=== PATIENT | female | born 1940 | race Caucasian/White ===

== ENCOUNTER 2018-08-25 19:46 | Emergency (ER) | payer OTHER ==
--- NOTE | 2018-08-25 21:07 | ER ---
Nurse's Notes [facility] Name: Keiko Rashid Age: 77 yrs Sex: Female : 1940 Arrival Date: 08/25/2018 Time: 19:49 Bed 18 Private MD: Dougie Dougherty F Diagnosis: Sprain of ankle Presentation: 08/25 20:04 Presenting complaint: Patient states: Pt reports around noon she was sitting down and ea stood up to walk, states "my foot had fallen asleep and when I stood up it just twisted all over the place". Transition of care: patient was not received from another setting of care. Onset of symptoms was August 25, 2018. Risk Assessment: Do you want to hurt yourself or someone else? Patient reports no desire to harm self or others. Initial Sepsis Screen: Does the patient meet any 2 criteria? No. Patient's initial sepsis screen is negative. Does the patient have a suspected source of infection? No. Patient's initial sepsis screen is negative. Care prior to arrival: None. 20:04 Method Of Arrival: Wheelchair ea 20:04 Acuity: GERRI 3 ea Triage Assessment: 20:12 General: Appears uncomfortable, Behavior is calm, cooperative. Pain: Complains of pain ea in left Achilles, left lateral malleolus, left medial malleolus and dorsum of left foot Pain currently is 9 out of 10 on a pain scale. Quality of pain is described as aching. Neuro: Level of Consciousness is awake, alert, obeys commands, Oriented to person, place, time. Respiratory: Airway is patent Respiratory effort is even, unlabored, Respiratory pattern is regular, symmetrical. Derm: Skin is pink, warm \\T\\ dry. Musculoskeletal: Circulation, motion, and sensation intact. Swelling present in left medial malleolus and dorsum of left foot. 20:13 Cardiovascular: Patient's skin is warm and dry. ea Historical: - Allergies: 20:10 No Known Allergies; cc3 - Home Meds: 20:10 Tresiba 56 units once a day [Active]; atorvastatin 10 mg oral tab 1 tab once daily cc3 [Active]; folic acid 1 mg Oral tab 1 tab once daily [Active]; ramipril 10 mg Oral cap 1 cap once daily [Active]; furosemide 20 mg Oral tab 1 tab once daily [Active]; - PMHx: 20:10 Diabetes - IDDM; Hypertension; cc3 - Immunization history:: Adult Immunizations up to date. - Social history:: Smoking status: Patient uses tobacco products. - Ebola Screening: : No symptoms or risks identified at this time. Screenin:09 Abuse screen: Denies threats or abuse. Nutritional screening: No deficits noted. ea Tuberculosis screening: No symptoms or risk factors identified. Fall Risk None identified. Assessment: 20:15 General: see triage assessment. cc3 21:30 Reassessment: Patient appears in no apparent distress at this time. Patient and/or cc3 family updated on plan of care and expected duration. Pain level reassessed. Patient is alert, oriented x 3, equal unlabored respirations, skin warm/dry/pink. Dr. Llanos discharged the patient home with prescription given, informed Dr. Llanos that the patient's blood pressure is on the high side and he's aware and he told the patient to take her antihypertensive medication. No IV cannula in situ. Patient left ER vitally stable by wheelchair escorted by me to the waiting room/lobby where her son is waiting for her. Patient states feeling better. Vital Signs: 20:13 BP 116 / 96; Pulse 90; Resp 18; Temp 97.8(O); Pulse Ox 95% on R/A; Weight 90.72 kg; ea Height 5 ft. 5 in. (165.10 cm); Pain 8/10; 20:30 BP 202 / 82; Pulse 80; Resp 18 S; Pulse Ox 95% on R/A; cc3 21:10 BP 193 / 79; Pulse 77; Resp 17 S; Pulse Ox 96% on R/A; cc3 20:13 Body Mass Index 33.28 (90.72 kg, 165.10 cm) ea ED Course: 19:49 Patient arrived in ED. es 19:50 Dougie Dougherty MD is Private Physician. es 19:55 Jacinto Llanos MD is Attending Physician. gs 20:07 Triage completed. ea 20:07 Arm band placed on right wrist. Patient placed in an exam room, on a stretcher, on ea pulse oximetry. 20:11 Era Jones is Primary Nurse. cc3 20:11 Patient has correct armband on for positive identification. Bed in low position. Call cc3 light in reach. Side rails up X 1. Pulse ox on. NIBP on. 20:58 XRAY Ankle LEFT 2 view In Process Unspecified. EDMS 21:06 David Rader MD is Referral Physician. 21:30 No provider procedures requiring assistance completed. Patient did not have IV access cc3 during this emergency room visit. Administered Medications: No medications were administered Outcome: 21:06 Discharge ordered by MD. gs 21:30 Patient left the ED. cc3 21:30 Discharged to home via wheelchair. cc3 21:30 Condition: stable 21:30 Discharge instructions given to patient, Instructed on discharge instructions, follow up and referral plans. medication usage, Demonstrated understanding of instructions, follow-up care, medications, Prescriptions given X 1. Signatures: Dispatcher [employer] EDMS Norma Bhakta Elena, RN RN Jacinto Reis MD MD gs Cordel, Charlene cc3 Corrections: (The following items were deleted from the chart) 20:13 19:10 General: Appears uncomfortable, Behavior is calm, cooperative, ea ea 20:13 19:10 Pain: Complains of pain in left Achilles, left lateral malleolus, left medial ea malleolus and dorsum of left foot Pain currently is 9 out of 10 on a pain scale. Quality of pain is described as aching, ea 20:13 19:10 Neuro: Level of Consciousness is awake, alert, obeys commands, Oriented to ea person, place, time, ea 20:13 19:10 Cardiovascular: Patient's skin is warm and dry. ea ea 20:13 19:10 Respiratory: Airway is patent Respiratory effort is even, unlabored, Respiratory ea pattern is regular, symmetrical, ea 20:13 19:10 Derm: Skin is pink, warm \\T\\ dry. ea ea 20:13 19:10 Musculoskeletal: Circulation, motion, and sensation intact. Swelling present in ea left medial malleolus and dorsum of left foot ea [id number] 02:15 04/07 21:30 Reassessment: Patient appears in no apparent distress at this time. Patient cc3 and/or family updated on plan of care and expected duration. Pain level reassessed. Patient is alert, oriented x 3, equal unlabored respirations, skin warm/dry/pink. Dr. Llanos discharged the patient home with prescription given. No IV cannula in situ. Patient left ER vitally stable by wheelchair escorted by me to the waiting room/lobby where her son is waiting for her. Patient states feeling better. cc3
--- NOTE | 2018-08-25 21:07 | RAD REPORT ---
EXAM DESCRIPTION: RAD - Ankle Left 2 View - 08/25/2018 8:58 pm CLINICAL HISTORY: PAIN Twisting injury to ankle. COMPARISON: No comparisons FINDINGS: Moderate soft tissue swelling about the ankle. Large calcaneal spurs present. No fracture identified.
--- NOTE | 2018-08-25 21:07 | EDPHYS ---
Physician Documentation [facility] Name: Keiko Rashid Age: 77 yrs Sex: Female : 1940 Arrival Date: 08/25/2018 Time: 19:49 Bed 18 Private MD: Dougie Dougherty F ED Physician Jacinto Llanos HPI: 08/25 21:03 This 77 yrs old Female presents to ER via Wheelchair with complaints of Ankle gs Injury. 21:03 The patient presents with an injury. The complaints affect the left ankle. Onset: The gs symptoms/episode began/occurred acutely, just prior to arrival. Associated signs and symptoms: Pertinent negatives: numbness. Modifying factors: the symptoms are aggravated by weight bearing, movement. Severity of symptoms: At their worst the symptoms were moderate, in the emergency department the symptoms are unchanged. The patient has experienced a previous episode. The patient has not recently seen a physician. Historical: - Allergies: 20:10 No Known Allergies; cc3 - Home Meds: 20:10 Tresiba 56 units once a day [Active]; atorvastatin 10 mg oral tab 1 tab once daily cc3 [Active]; folic acid 1 mg Oral tab 1 tab once daily [Active]; ramipril 10 mg Oral cap 1 cap once daily [Active]; furosemide 20 mg Oral tab 1 tab once daily [Active]; - PMHx: 20:10 Diabetes - IDDM; Hypertension; cc3 - Immunization history:: Adult Immunizations up to date. - Social history:: Smoking status: Patient uses tobacco products. - Ebola Screening: : No symptoms or risks identified at this time. ROS: 21:03 All other systems are negative. gs Exam: 21:03 Head/Face: Normocephalic, atraumatic. Eyes: Pupils equal round and reactive to light, gs extra-ocular motions intact. Lids and lashes normal. Conjunctiva and sclera are non-icteric and not injected. Cornea within normal limits. Periorbital areas with no swelling, redness, or edema. ENT: Nares patent. No nasal discharge, no septal abnormalities noted. Tympanic membranes are normal and external auditory canals are clear. Oropharynx with no redness, swelling, or masses, exudates, or evidence of obstruction, uvula midline. Mucous membranes moist. Neck: Trachea midline, no thyromegaly or masses palpated, and no cervical lymphadenopathy. Supple, full range of motion without nuchal rigidity, or vertebral point tenderness. No Meningismus. Chest/axilla: Normal chest wall appearance and motion. Nontender with no deformity. No lesions are appreciated. Cardiovascular: Regular rate and rhythm with a normal S1 and S2. No gallops, murmurs, or rubs. Normal PMI, no JVD. No pulse deficits. Respiratory: Lungs have equal breath sounds bilaterally, clear to auscultation and percussion. No rales, rhonchi or wheezes noted. No increased work of breathing, no retractions or nasal flaring. Abdomen/GI: Soft, non-tender, with normal bowel sounds. No distension or tympany. No guarding or rebound. No evidence of tenderness throughout. Back: No spinal tenderness. No costovertebral tenderness. Full range of motion. Skin: Warm, dry with normal turgor. Normal color with no rashes, no lesions, and no evidence of cellulitis. Neuro: Awake and alert, GCS 15, oriented to person, place, time, and situation. Cranial nerves II-XII grossly intact. Motor strength 5/5 in all extremities. Sensory grossly intact. Cerebellar exam normal. Normal gait. 21:03 Constitutional: The patient appears alert, awake. 21:03 Musculoskeletal/extremity: ROM: no acute changes, Pulses: are normal with no appreciated deficits, Sensation intact. Joints: the left ankle displays painful range of motion, swelling, tenderness. Vital Signs: 20:13 BP 116 / 96; Pulse 90; Resp 18; Temp 97.8(O); Pulse Ox 95% on R/A; Weight 90.72 kg; ea Height 5 ft. 5 in. (165.10 cm); Pain 8/10; 20:30 BP 202 / 82; Pulse 80; Resp 18 S; Pulse Ox 95% on R/A; cc3 21:10 BP 193 / 79; Pulse 77; Resp 17 S; Pulse Ox 96% on R/A; cc3 20:13 Body Mass Index 33.28 (90.72 kg, 165.10 cm) ea MDM: 20:16 Patient medically screened. gs 21:03 Differential diagnosis: fracture, sprain. Data reviewed: vital signs, nurses notes, gs radiologic studies. Counseling: I had a detailed discussion with the patient and/or guardian regarding: the historical points, exam findings, and any diagnostic results supporting the discharge/admit diagnosis, radiology results, the need for outpatient follow up, a orthopedic surgeon. Response to treatment: the patient's symptoms have mildly improved after treatment, and as a result, I will discharge patient. 08/25 20:09 Order name: XRAY Ankle LEFT 2 view; Complete Time: 21:08 ea 08/25 21:07 Order name: Rolando Wrap; Complete Time: 21:17 Administered Medications: No medications were administered Disposition: 08/25/18 21:06 Discharged to Home. Impression: Sprain of ankle. - Condition is Stable. - Discharge Instructions: Ankle Sprain. - Prescriptions for Tylenol- Codeine #4 300-60 mg Oral Tablet - take 1 tablet by ORAL route every 6 hours As needed; 10 tablet. - Medication Reconciliation Form, Thank You Letter, Antibiotic Education, Prescription Opioid Use form. - Follow up: David Rader MD; When: 2 - 3 days; Reason: Re-evaluation by your physician. Signatures: Dispatcher [employer] EDHeidy Wilkerson RN RN ea Starr, Gregory, MD MD gs Cordel, Charlene cc3 Corrections: (The following items were deleted from the chart) 21:30 21:06 08/25/2018 21:06 Discharged to Home. Impression: Sprain of ankle. Condition is cc3 Stable. Forms are Medication Reconciliation Form, Thank You Letter, Antibiotic Education, Prescription Opioid Use. Follow up: David Rader; When: 2 - 3 days; Reason: Re-evaluation by your physician. gs
== END 2018-08-25 21:30 | disposition home or self-care (01) ==
LOC: ER 19:46
DX: S93.402A Sprain of unspecified ligament of left ankle, initial encounter (principal); E11.9 Type 2 diabetes mellitus without complications; I10 Essential (primary) hypertension; Z79.4 Long term (current) use of insulin
CPT/HCPCS: 99283

== ENCOUNTER 2022-02-15 07:12 | Day surgery (SDC) | payer OTHER ==
[2022-02-15 07:52] VITALS: TEMP 97.5; BMI 25.9
[2022-02-15 08:02] LABS: MPV 8.7 fL (7.6-11.3)
[2022-02-15 08:08] LABS: Protime INR 1.04
--- NOTE | 2022-02-15 10:20 | RAD REPORT ---
EXAM DESCRIPTION: US - Thoracentesis w/ US Guide - 02/15/2022 9:47 am CLINICAL HISTORY: Pleural effusion. THORA COMPARISON: No comparisons FINDINGS: Preoperative diagnosis: Left pleural effusion Post operative diagnosis: Same Conscious Sedation: None. Estimated blood loss: Minimal Specimens:A small volume of fluid was sent for requested lab studies. The patient was placed in the upright recumbent position and the left posterior back was prepped and draped in the usual sterile fashion. 1% Lidocaine was infiltrated into the soft tissues for local an esthesia. Under sonographic guidance, a thoracentesis needle and 6 Jamaican catheter was advanced into the left pleural space. Approximately 1 liter yellow fluid was aspirated. Samples were sent to patho logy for requested analysis. The patient tolerated the procedure without immediate complication and t ransferred to the floor in stable condition. IMPRESSION: Successful ultrasound-guided thoracentesis as detailed.
--- NOTE | 2022-02-15 11:05 | RAD REPORT ---
EXAM DESCRIPTION: RAD - Chest Single View - 02/15/2022 10:43 am CLINICAL HISTORY: post procedure screening Chest pain. COMPARISON: Chest Pa And Lat (2 Views) dated 12/14/2021 FINDINGS: Portable technique limits examination quality. Left pleural effusion has diminished in size. No evidence of left sided pneumothorax. Mild bilateral pulmonary opacities probably represent pulmonary edema. The heart is mildly enlarged in size. IMPRESSION: No evidence of postprocedure pneumothorax.
[2022-02-15 12:24] LABS: Appearance CLEAR (CLEAR); Body Fluid Source PLEURAL; Body Fluid WBC 359 /mm^3; Color of fluid Yellow (COLORLESS)
[2022-02-15 13:30] VITALS: BP 161/52; O2SAT 95
== END 2022-02-15 11:10 | disposition home or self-care (01) ==
LOC: DS 07:12
PROVIDERS: ATTEND Internal Medicine Sleep Medicine
DX: J90 Pleural effusion, not elsewhere classified (principal)
CPT/HCPCS: 32555; 36415; 71045; 82945; 83615; 84157; 84311; 85049; 85610; 85730; 87015; 87070; 87102; 87116; 87206; 88108; 88305; 89050

== ENCOUNTER 2022-03-31 07:10 | Inpatient (IN) | payer OTHER ==
[2022-03-31] MEDS ORDERED: MORPHINE 4 MG/ML SYR ONE (08:28)
[2022-03-31] MEDS ORDERED: ONDANSETRON 4 MG/2 ML VIAL ONE (08:28)
--- NOTE | 2022-03-31 09:15 | RAD REPORT ---
EXAM DESCRIPTION: RAD - Hip Left 2 View - 03/31/2022 8:05 am CLINICAL HISTORY: PAIN COMPARISON: No comparisons FINDINGS: Subcapital fracture is seen in the region of the left femoral neck with minimal angulation . No dislocation.
--- NOTE | 2022-03-31 09:17 | RAD REPORT ---
EXAM DESCRIPTION: RAD - Pelvis - 03/31/2022 8:05 am CLINICAL HISTORY: PAIN COMPARISON: No comparisons FINDINGS: Subcapital fracture is seen of the proximal left femur with minimal varus angulation. No d islocation.
--- NOTE | 2022-03-31 09:58 | EDPHYS ---
Physician Documentation [facility] Name: Keiko Rashid Age: 81 yrs Sex: Female : 1940 Arrival Date: 03/31/2022 Time: 07:13 Bed 7 Private MD: ED Physician Johnson Sheehan HPI: 03/31 08:27 This 81 yrs old Female presents to ER via EMS with complaints of Fall Injury, Hip Pain. 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 She complains of left knee pain left elbow pain and left hip pain. She denies hitting her head or loss of consciousness. She has an abrasion on her left elbow and her left knee. There is no obvious external injury to the hip and there is not any shortening on the right left hip. Onset: The symptoms/episode began/occurred suddenly, just prior to arrival. Severity of symptoms: At their worst the symptoms were mild moderate just prior to arrival, in the emergency department the symptoms are unchanged. The patient has not experienced similar symptoms in the past. The patient has not recently seen a physician. Historical: - Allergies: 07:18 No Known Allergies; jd3 - PMHx: 07:18 Diabetes - IDDM; Hypertension; Diabetes mellitus; jd3 - Immunization history:: Adult Immunizations up to date, Client reports receiving the 2nd dose of the Covid vaccine. - Social history:: Smoking status: Patient reports the use of cigarette tobacco products, smokes more than three packs cigarettes per day. - Immunization history: Last tetanus immunization: unknown. ROS: 08:27 Constitutional: Negative for fever, chills, and weight loss, Eyes: Negative for injury, kdr pain, redness, and discharge, ENT: Negative for injury, pain, and discharge, Neck: Negative for injury, pain, and swelling, Cardiovascular: Negative for chest pain, palpitations, and edema, Respiratory: Negative for shortness of breath, cough, wheezing, and pleuritic chest pain, Abdomen/GI: Negative for abdominal pain, nausea, vomiting, diarrhea, and constipation, Back: Negative for injury and pain, : Negative for injury, bleeding, discharge, and swelling, Neuro: Negative for headache, weakness, numbness, tingling, and seizure activity. Psych: Negative for depression, anxiety, suicide ideation, homicidal ideation, and hallucinations, Allergy/Immunology: Negative for hives, rash, and allergies, Endocrine: Negative for neck swelling, polydipsia, polyuria, polyphagia, and marked weight changes, Hematologic/Lymphatic: Negative for swollen nodes, abnormal bleeding, and unusual bruising. 08:27 MS/extremity: Positive for injury or acute deformity, abrasion, pain, The patient has abrasions to her left elbow and left knee. She has pain in her left flank/hip. There is minimal shortening of the left leg.. Exam: 08:27 Constitutional: This is a well developed, well nourished patient who is awake, alert, kdr and in no acute distress. Head/Face: Normocephalic, atraumatic. Eyes: Pupils equal round and reactive to light, extra-ocular motions intact. Lids and lashes normal. Conjunctiva and sclera are non-icteric and not injected. Cornea within normal limits. Periorbital areas with no swelling, redness, or edema. Neck: Trachea midline, no thyromegaly or masses palpated, and no cervical lymphadenopathy. Supple, full range of motion without nuchal rigidity, or vertebral point tenderness. No Meningismus. Chest/axilla: Normal chest wall appearance and motion. Nontender with no deformity. No lesions are appreciated. Cardiovascular: Regular rate and rhythm with a normal S1 and S2. No gallops, murmurs, or rubs. Normal PMI, no JVD. No pulse deficits. Respiratory: Lungs have equal breath sounds bilaterally, clear to auscultation and percussion. No rales, rhonchi or wheezes noted. No increased work of breathing, no retractions or nasal flaring. Abdomen/GI: Soft, non-tender, with normal bowel sounds. No distension or tympany. No guarding or rebound. No evidence of tenderness throughout. Back: No spinal tenderness. No costovertebral tenderness. Full range of motion. Neuro: Awake and alert, GCS 15, oriented to person, place, time, and situation. Cranial nerves II-XII grossly intact. Motor strength 5/5 in all extremities. Sensory grossly intact. Cerebellar exam normal. Normal gait. Psych: Awake, alert, with orientation to person, place and time. Behavior, mood, and affect are within normal limits. 08:27 Musculoskeletal/extremity: As noted above, there are abrasions to the left elbow and left knee with pain left flank and hip. There is no other obvious injuries. Patient has range of motion that is limited to her left hip without significant pain. Vital Signs: 07:20 BP 169 / 95; Pulse 76; Resp 19 S; Temp 98.6(TE); Pulse Ox 95% on R/A; Weight 74.84 kg jd3 (R); Height 5 ft. 6 in. (167.64 cm) (R); Pain 8/10; 07:30 BP 156 / 66; Pulse 64; Resp 18; Pulse Ox 97% on 3 lpm NC; vg1 08:30 BP 148 / 54; Pulse 58; Resp 14; Pulse Ox 99% on 2 lpm NC; vg1 09:00 BP 043 / 51; Pulse 57; Resp 20; Pulse Ox 95% on 2 lpm NC; vg1 09:30 BP 144 / 73; Pulse 59; Resp 20; Pulse Ox 95% on 2 lpm NC; vg1 10:00 BP 136 / 52; Pulse 53; Resp 14; Pulse Ox 94% on 2 lpm NC; vg1 11:08 BP 133 / 48; Pulse 61; Resp 15; Pulse Ox 96% on R/A; jd3 11:30 BP 141 / 56; Pulse 59; Resp 18; Pulse Ox 94% on 2 lpm NC; vg1 12:30 BP 140 / 97; Pulse 76; Resp 20; Pulse Ox 94% on 2 lpm NC; vg1 13:30 BP 130 / 81; Pulse 67; Resp 18; Pulse Ox 94% on 2 lpm NC; vg1 07:20 Body Mass Index 26.63 (74.84 kg, 167.64 cm) jd3 Sally Coma Score: 07:21 Eye Response: spontaneous(4). Verbal Response: oriented(5). Motor Response: obeys vg1 commands(6). Total: 15. 08:30 Eye Response: spontaneous(4). Verbal Response: oriented(5). Motor Response: obeys vg1 commands(6). Total: 15. 09:30 Eye Response: spontaneous(4). Verbal Response: oriented(5). Motor Response: obeys vg1 commands(6). Total: 15. Trauma Score (Adult): 07:21 Eye Response: spontaneous(1); Verbal Response: oriented(1); Motor Response: obeys vg1 commands(2); Systolic BP: > 89 mm Hg(4); Respiratory Rate: 10 to 29 per min(4); Sally Score: 15; Trauma Score: 12 MDM: 08:27 Data reviewed: vital signs, nurses notes, lab test result(s), radiologic studies. kdr Counseling: I had a detailed discussion with the patient and/or guardian regarding: the historical points, exam findings, and any diagnostic results supporting the discharge/admit diagnosis, lab results, radiology results. 09:57 Patient medically screened. kdr 03/31 09:41 Order name: SARS RAPID; Complete Time: 11:47 ss 03/31 11:50 Order name: CBC with Diff kdr 03/31 07:21 Order name: Pelvis XRAY; Complete Time: 09:29 kdr 03/31 07:22 Order name: Hip Left 2 View XRAY; Complete Time: 09:15 kdr 03/31 11:50 Order name: Comprehensive Metabolic Panel kdr 03/31 11:50 Order name: PT-INR kdr 03/31 07:25 Order name: Misc. Order: Clean and dress wounds; Complete Time: 08:44 kdr 03/31 12:15 Order name: CONS Physician Consult EDMS 03/31 13:12 Order name: Labs - recollect needed: please recollect purple top-clotted; Complete eb Time: 13:31 03/31 13:14 Order name: Labs - recollect needed: pt also needs a blue top recollected; Complete eb Time: 13:31 Administered Medications: 08:33 Drug: morphine 2 mg Route: IVP; Infused Over: 4 mins; Site: right forearm; jd3 09:30 Follow up: Response: No adverse reaction; Pain is decreased vg1 08:33 Drug: Zofran (Ondansetron) 4 mg Route: IVP; Site: right forearm; jd3 14:11 Follow up: Response: No adverse reaction vg1 Disposition Summary: 03/31/22 09:57 Hospitalization Ordered Hospitalization Status: Inpatient Admission kdr Provider: Rakesh John Location: Telemetry/MedSurg (Inpatient) kdr Condition: Fair kdr Problem: new kdr Symptoms: have improved kdr Bed/Room Type: Standard kdr Room Assignment: 404(03/31/22 13:49) eb Diagnosis - Left hip fracture, subcapital, minimal angulation, closed kdr Forms: - Medication Reconciliation Form kdr - SBAR form kdr Signatures: Dispatcher [employer] Johnson Lee MD MD kdr Gwyn Meneses RN RN jd3 Colleen Nunez Victoria, RN RN vg1 Rakesh John MD MD rn3 Corrections: (The following items were deleted from the chart) 13:49 09:57 kdr eb
--- NOTE | 2022-03-31 09:58 | ER ---
Nurse's Notes [facility] Name: Keiko Rashid Age: 81 yrs Sex: Female : 1940 Arrival Date: 03/31/2022 Time: 07:13 Bed 7 Private MD: Diagnosis: Left hip fracture, subcapital, minimal angulation, closed Presentation: 03/31 07:13 Chief complaint: EMS states: "81 year old female that went to grab the news paper this jd3 morning and fell. she denies hitting her head, but could not stand back up. she has an abrasion on her left elbow and left knee. she is reporting left hip pain and is unable to put pressure on her left leg. we also found that she was 75 % on room air so we placed her on a nasal canula at 4 L and she came up to 95%. the only history she reports is diabetes, but she does have FADY lower extremity swelling and reporting the shortness of breath.". Coronavirus screen: At this time, the client does not indicate any symptoms associated with coronavirus-19. Ebola Screen: No symptoms or risks identified at this time. Initial Sepsis Screen: Does the patient meet any 2 criteria? No. Patient's initial sepsis screen is negative. Does the patient have a suspected source of infection? No. Patient's initial sepsis screen is negative. Risk Assessment: Do you want to hurt yourself or someone else? Patient reports no desire to harm self or others. Onset of symptoms was March 31, 2022. 07:13 Method Of Arrival: EMS: [facility] jd3 07:13 Acuity: GERRI 3 jd3 07:20 Care prior to arrival: Medication(s) given: 75 mcg of Fentanyl IV initiated. 20 GA, in jd3 the right forearm. 07:22 Care prior to arrival:. Mechanism of Injury: Fall from standing position. Trauma event vg1 details: Injury occurred in the [facility]. Trauma Activation: Alert Physician: ED Physician; Name: Aguila; Notified At: ; Arrived At: Physician: General Surgeon; Name: ; Notified At: ; Arrived At: Physician: Radiology; Name: ; Notified At: ; Arrived At: Physician: Respiratory; Name: ; Notified At: ; Arrived At: Physician: Lab; Name: ; Notified At: ; Arrived At: Historical: - Allergies: 07:18 No Known Allergies; jd3 - PMHx: 07:18 Diabetes - IDDM; Hypertension; Diabetes mellitus; jd3 - Immunization history:: Adult Immunizations up to date, Client reports receiving the 2nd dose of the Covid vaccine. - Social history:: Smoking status: Patient reports the use of cigarette tobacco products, smokes more than three packs cigarettes per day. - Immunization history: Last tetanus immunization: unknown. Screenin:15 Abuse screen: Denies threats or abuse. Nutritional screening: No deficits noted. vg1 Tuberculosis screening: No symptoms or risk factors identified. Fall Risk No fall in past 12 months (0 pts). No secondary diagnosis (0 pts). IV access (20 points). Ambulatory Aid- None/Bed Rest/Nurse Assist (0 pts). Gait- Impaired (20 pts.). Mental Status- Oriented to own ability (0 pts). Total Trejo Fall Scale indicates High Risk Score (45 or more points). Fall prevention measures have been instituted. Side Rails Up X 2 Placed Close to Nursing Station Family Present and informed to notify staff if the need to leave the bedside As available patient and family educated on Fall Prevention Program and Strategies. Primary Survey: 07:18 NO uncontrolled hemorrhage observed. Breathing/Chest: Spontaneous respiratory effort, vg1 equal unlabored respirations, breath sounds clear bilaterally, regular pattern, symmetrical chest rise and fall. Respiratory effort: spontaneous, Breath sounds: clear, bilaterally. Circulation: Skin color: pink. Disability Client is alert. Exposure/Environment: All clothing and personal items were removed. Forensic evidence collection is not deemed to be indicated at this time. Items placed in patient belonging bag. There is no evidence of uncontrolled external bleeding. Obvious injury(ies) are noted at this time: appears to have external rotation to left leg; c/o left hip pain A warming method has been applied: A warm blanket has been provided to the patient. 08:00 Reassessment Alertness and Airway: Awake and alert. The airway is patent. Breathing: vg1 Spontaneous respiratory effort, equal unlabored respirations, breath sounds clear bilaterally, regular pattern with symmetrical chest rise and fall. Circulation: Pulses Dopplerable Disability: Alert. Secondary Survey: 07:20 HEENT: No deficits noted. Gastrointestinal: No deficits noted. Abdomen is soft. : No vg1 signs and/or symptoms were reported regarding the genitourinary system. Musculoskeletal: Range of motion: limited in left hip appears to have external rotation to left leg. Assessment: 07:15 General: Appears in no apparent distress. uncomfortable, Behavior is calm, cooperative. vg1 Pain: Complains of pain in Left hip Pain currently is 8 out of 10 on a pain scale. Pain began 30 min ago. Noted to be grimacing, guarding. Neuro: Level of Consciousness is awake, alert, obeys commands, Oriented to person, place, time, situation. Cardiovascular: Capillary refill is > 3 seconds in bilateral toes Patient's skin is warm and dry. Edema Right foot. Respiratory: Airway is patent Respiratory effort is even, unlabored. GI: Abdomen is flat, non-distended. : No signs and/or symptoms were reported regarding the genitourinary system. EENT: No signs and/or symptoms were reported regarding the EENT system. Derm: appears to have abrasions to Left knee and Left elbow. Musculoskeletal: Range of motion: limited in left hip appears to have an external rotation to left leg. 08:15 Reassessment: Patient appears in no apparent distress at this time. No changes from vg1 previously documented assessment. Patient and/or family updated on plan of care and expected duration. Pain level reassessed. Patient is alert, oriented x 3, equal unlabored respirations, skin warm/dry/pink. 09:15 Reassessment: Patient appears in no apparent distress at this time. No changes from vg1 previously documented assessment. Patient and/or family updated on plan of care and expected duration. Pain level reassessed. Patient is alert, oriented x 3, equal unlabored respirations, skin warm/dry/pink. 10:15 Reassessment: Patient appears in no apparent distress at this time. No changes from vg1 previously documented assessment. Pt resting with eyes closed. 11:08 Reassessment: Patient appears in no apparent distress at this time. Patient and/or jd3 family updated on plan of care and expected duration. Pain level reassessed. Patient is alert, oriented x 3, equal unlabored respirations, skin warm/dry/pink. awaiting admission. 12:15 Reassessment: Patient appears in no apparent distress at this time. Patient and/or vg1 family updated on plan of care and expected duration. Pain level reassessed. Patient is alert, oriented x 3, equal unlabored respirations, skin warm/dry/pink. 13:15 Reassessment: Patient appears in no apparent distress at this time. Patient and/or vg1 family updated on plan of care and expected duration. Pain level reassessed. Patient is alert, oriented x 3, equal unlabored respirations, skin warm/dry/pink. 14:10 Reassessment: Patient appears in no apparent distress at this time. Patient and/or vg1 family updated on plan of care and expected duration. Pain level reassessed. Patient is alert, oriented x 3, equal unlabored respirations, skin warm/dry/pink. Patient denies pain at this time. 14:12 Reassessment: attempted to call report. vg1 Vital Signs: 07:20 BP 169 / 95; Pulse 76; Resp 19 S; Temp 98.6(TE); Pulse Ox 95% on R/A; Weight 74.84 kg jd3 (R); Height 5 ft. 6 in. (167.64 cm) (R); Pain 8/10; 07:30 BP 156 / 66; Pulse 64; Resp 18; Pulse Ox 97% on 3 lpm NC; vg1 08:30 BP 148 / 54; Pulse 58; Resp 14; Pulse Ox 99% on 2 lpm NC; vg1 09:00 BP 043 / 51; Pulse 57; Resp 20; Pulse Ox 95% on 2 lpm NC; vg1 09:30 BP 144 / 73; Pulse 59; Resp 20; Pulse Ox 95% on 2 lpm NC; vg1 10:00 BP 136 / 52; Pulse 53; Resp 14; Pulse Ox 94% on 2 lpm NC; vg1 11:08 BP 133 / 48; Pulse 61; Resp 15; Pulse Ox 96% on R/A; jd3 11:30 BP 141 / 56; Pulse 59; Resp 18; Pulse Ox 94% on 2 lpm NC; vg1 12:30 BP 140 / 97; Pulse 76; Resp 20; Pulse Ox 94% on 2 lpm NC; vg1 13:30 BP 130 / 81; Pulse 67; Resp 18; Pulse Ox 94% on 2 lpm NC; vg1 07:20 Body Mass Index 26.63 (74.84 kg, 167.64 cm) jd3 Gove Coma Score: 07:21 Eye Response: spontaneous(4). Verbal Response: oriented(5). Motor Response: obeys vg1 commands(6). Total: 15. 08:30 Eye Response: spontaneous(4). Verbal Response: oriented(5). Motor Response: obeys vg1 commands(6). Total: 15. 09:30 Eye Response: spontaneous(4). Verbal Response: oriented(5). Motor Response: obeys vg1 commands(6). Total: 15. Trauma Score (Adult): 07:21 Eye Response: spontaneous(1); Verbal Response: oriented(1); Motor Response: obeys vg1 commands(2); Systolic BP: > 89 mm Hg(4); Respiratory Rate: 10 to 29 per min(4); Sally Score: 15; Trauma Score: 12 ED Course: 07:13 Patient arrived in ED. jd3 07:13 Gwyn Meneses RN is Primary Nurse. jd3 07:14 Primary Nurse role handed off by Gwyn Meneses RN vg1 07:14 Sylvia Schultz RN is Primary Nurse. vg1 07:18 Triage completed. jd3 07:19 Johnson Sheehan MD is Attending Physician. kdr 07:20 Thermoregulation: warm blanket given to patient. vg1 07:20 Arm band placed on. jd3 07:21 Oxygen administration via nasal cannula \\T\\ 3L/min. vg1 07:21 Patient has correct armband on for positive identification. Bed in low position. Call vg1 light in reach. Side rails up X2. Adult w/ patient. Oxygen administration via nasal cannula \\T\\ 3L/min. 08:07 Pelvis XRAY In Process Unspecified. EDMS 08:07 Hip Left 2 View XRAY In Process Unspecified. EDMS 09:47 SARS RAPID Sent. vg1 09:54 Rakesh John MD is Hospitalizing Provider. kdr 13:35 Inserted saline lock: 22 gauge in left antecubital area, using aseptic technique. Blood zm collected. 14:50 No provider procedures requiring assistance completed. Patient admitted, IV remains in vg1 place. Administered Medications: 08:33 Drug: morphine 2 mg Route: IVP; Infused Over: 4 mins; Site: right forearm; jd3 09:30 Follow up: Response: No adverse reaction; Pain is decreased vg1 08:33 Drug: Zofran (Ondansetron) 4 mg Route: IVP; Site: right forearm; jd3 14:11 Follow up: Response: No adverse reaction vg1 Medication: 14:48 VIS not applicable for this client. vg1 Outcome: 09:57 Decision to Hospitalize by Provider. kdr 14:30 Admitted to Med/surg accompanied by nurse, via stretcher, room 404, with oxygen, with vg1 chart, Report called to Antonina LOPEZ 14:50 Condition: good vg1 14:50 Instructed on the need for admit. 14:51 Patient's length of stay was not longer than 2 hours. vg1 14:51 Patient left the ED. vg1 Signatures: Dispatcher [employer] EDMS Johnson Sheehan MD MD kdr Gwyn Meneses RN RN jSylvia Haines RN RN vg1 Jocy Pool Corrections: (The following items were deleted from the chart) 08:33 08:33 morphine 2 mg IVP in right antecubital over 4 mins jd3 jd3 08:48 08:30 BP 148 / 54; Pulse 58bpm; Resp 14bpm; Pulse Ox 99% RA; vg1 vg1 14:13 14:12 Inserted saline lock: 20 gauge in left antecubital area, using aseptic technique. Blood collected. 14:13 13:30 Inserted saline lock: 22 gauge in left antecubital area, using aseptic technique. Blood collected.
[2022-03-31 10:10] LABS: SARS-CoV-2 Antigen Rapid Res Negative (Negative)
--- NOTE | 2022-03-31 12:24 | P.HP ---
Certification for Inpatient Patient admitted to: Inpatient Practitioner: I am a practitioner with admitting privileges, knowledge of patient current condition, hospital course, and medical plan of care. Services: Services provided to patient in accordance with Admission requirements found in Title 42 Section 412.3 of the Code of Federal Regulations Patient History Date of Service: 03/31/22 Reason for admission: L hip fracture History of Present Illness: 81yo F, PMH: IDDM2, HTN Presented to ED after fall at home. Patient reports walking outside to grab newspaper, bent over, and felt lightheaded when she stood up. She subsequently had a syncopal event and fell on the concrete floor causing left proximal femur fracture. Labwork pending at time of admission. Ortho was consulted by ED physician, plans for surgery tomorrow. Patient denies any recent illness, no change in medications. No nausea/vomiting, no diarrhea, no chest pain, no palpitations, no fever/chills. Allergies No Known Allergies Allergy (Verified 02/15/22 07:22) Home Medications: Amlodipine Besylate 10 mg PO DAILY 03/31/22 Atorvastatin Calcium [Lipitor*] 10 mg PO DAILY 03/31/22 Folic Acid 1 mg PO DAILY 03/31/22 Furosemide [Lasix] 40 mg PO DAILY 03/31/22 Hydralazine [Apresoline*] 25 mg PO DAILY 03/31/22 Insulin Degludec [Tresiba Flextouch U-200] 45 units SQ DAILY 03/31/22 Metoprolol Tartrate 50 mg PO DAILY 03/31/22 Ramipril [Altace] 10 mg PO DAILY 03/31/22 - Past Medical/Surgical History -: IDDM2 -: HTN -: none - Family History Family History: Reviewed- Non-Contributory - Social History Smoking Status: Current every day smoker Alcohol use: Yes Place of Residence: Home Review of Systems 10-point ROS is otherwise unremarkable Physical Examination - Physical Exam General: Alert, In no apparent distress, Oriented x3 HEENT: EOMI, Sclerae nonicteric Neck: Supple, No LAD Respiratory: Clear to auscultation bilaterally, Normal air movement Cardiovascular: No edema, Regular rate/rhythm Gastrointestinal: Soft and benign, Non-distended, No tenderness Musculoskeletal: No tenderness (L elbow, L hip) Neurological: Normal speech, Normal strength at 5/5 x4 extr, Normal affect Assessment and Plan - Advance Directives Does patient have a Living Will: No Does patient have a Durable POA for Healthcare: No Physician Review Additional Text: Problem List L Hip fracture s/p fall syncope HTN IDDM2 syncopal episode, bent down and stood up telemetry monitoring cardiology consulted for clearance Dr. Anderson consulted by ED, plan for OR tomorrow diabetic diet now, NPO after midnight DVT prophylaxis pain meds as needed confirm home meds, restart as appropriate labs pending Code: full Dispo: home, ~2-3 days Time Spent Managing Pts Care (In Minutes): 65
[2022-03-31] MEDS ORDERED: HYDROCODONE/APAP 5/325 MG TAB PO PRN (12:32)
[2022-03-31] MEDS ORDERED: ONDANSETRON 4 MG/2 ML VIAL IV PRN (12:32)
[2022-03-31] MEDS ORDERED: ACETAMINOPHEN 500 MG TAB PO PRN (12:32)
[2022-03-31] MEDS: MORPHINE 2 MG/ML SYR IV PRN (12:34)
[2022-03-31 13:42] LABS: Absolute Lymphocytes (CBC) 0.3 K/uL (0.7-4.9); Hematocrit 36.2 % (36.0-45.0); Lymphocytes % 4.2 % (15.3-44.8); MCV 87.8 fL (80-100); MPV 8.5 fL (7.6-11.3); RBC Red Blood Cell Count 4.12 M/uL (3.86-4.86)
[2022-03-31 13:43] LABS: Protime INR 1.02
[2022-03-31 13:58] LABS: Albumin 2.4 g/dL (3.4-5.0); Potassium 4.1 mmol/L (3.5-5.1); Protein, Total 6.5 g/dL (6.4-8.2)
[2022-03-31] MEDS: INSULIN -REGULAR HUMAN 50 UNIT/0.5 ML ML SQ SCH ×2 (15:43→21:00)
[2022-03-31 16:47] VITALS: BMI 26.6
[2022-03-31] MEDS: FUROSEMIDE 40 MG/4 ML VIAL IV SCH (17:09)
--- NOTE | 2022-03-31 18:35 | RAD REPORT ---
EXAM DESCRIPTION: US - Abdomen Exam Limited - 03/31/2022 6:18 pm CLINICAL HISTORY: elevated LFTs COMPARISON: Thorax Wo Con dated 01/31/2022 FINDINGS: No focal liver lesions identified. The common bile duct is dilated measuring 10 millimeter s. No intrahepatic biliary ductal dilatation is identified. The portal vein is patent. The liver jourdan ures 15.7 cm. IMPRESSION: Unremarkable appearance of the liver. Dilated common bile duct. This could reflect the p ostcholecystectomy state.
--- NOTE | 2022-03-31 21:27 | CON ---
Date of Consultation: 03/31/2022 Reason For Consultation: Cardiac preop risk assessment for hip fracture surgery. History Of Present Illness: This is an 81-year-old female with advanced COPD apparently and active s moker who was trying to get the newspaper and had a ground level fall and ended up sustaining a left hip fracture. She presented to the emergency room with severe hip pain. I was asked to evaluate her cardiac risk before surgery. Patient has shortness of breath on minimal exertion. She was hypoxic when she arrived. Denies having any chest pain, but she is actively smoking and her activities are l imited because of the shortness of breath, which is her baseline. Past Medical History: COPD, diabetes, and hypertension. Medications: Refer to reconciliation sheet for detailed list. Allergies: NO KNOWN DRUG ALLERGIES. Family History: No premature coronary artery disease or cancer. Social History: She is active smoker, up to a pack per day. Does not drink or use any drugs. Review of Systems: All systems reviewed and they were negative except for mentioned in HPI. Physical Examination: Vital Signs: Reviewed. Head And Neck: Pupils are equal and reactive to light. Intact eye movements. No JVD. No adenopath y. Neck is supple. Thyroid is not enlarged. Lungs: Decreased breathing sounds with wheezing. No accessory muscle use or muscle retraction. Heart: Regular rate and rhythm. No extra sounds. Abdomen: Soft, nontender. Bowel sounds positive. No organomegaly. No masses or hernia. No rigidi ty or rebound. Extremities: No clubbing or cyanosis, but she has 3+ edema. Neurologic: Alert, awake, and oriented x3. No acute focal deficits appreciated. Investigations: BUN 26 and creatinine 1.1. Hemoglobin is 11.7. AST is 556 and ALT is 221. Assessment And Recommendation: 1.Cardiac preoperative risk assessment. This patient has signs and symptoms of congestive heart jaziel lure that appears to be chronic and there is no active chest pain or known coronary artery disease. However, the patient has a hip fracture and this procedure is rather urgent at this point. I discuss ed this situation with her. She is at high risk from the cardiac standpoint and she needs extensive cardiac workup, which potentially will delay this surgery significantly especially if she needs inter vention in her coronary arteries. As such, I recommend to proceed with surgery without further cardi ac workup for that purpose and monitor very closely, but we will plan to do a full cardiac evaluation on her once her hip surgery is done and the patient is able to ambulate. 2.Elevated liver enzymes. More of an AST elevation than ALT, suggestive of alcoholic picture, may b e it is the reason behind her fall. 3.Congestive heart failure. Recommend IV diuresis with Lasix 40 mg q.12 hours. Try to optimize her before surgery. Monitor fluid status before the surgery and recheck a troponin on her. SR/MODL Voice ID: [id number] Report ID: [id number]
[2022-04-01] MEDS: MORPHINE 2 MG/ML SYR IV PRN ×2 (04:11→13:53)
[2022-04-01 06:19] LABS: Absolute Lymphocytes (CBC) 0.3 K/uL (0.7-4.9); Hematocrit 33.9 % (36.0-45.0); Lymphocytes % 4.2 % (15.3-44.8); MPV 9.1 fL (7.6-11.3); RBC Red Blood Cell Count 3.86 M/uL (3.86-4.86)
[2022-04-01 06:50] LABS: Albumin 2.2 g/dL (3.4-5.0); Bilirubin Total 1.3 mg/dL (0.2-1.0); Magnesium 1.6 mg/dL (1.8-2.4); Potassium 3.9 mmol/L (3.5-5.1); Protein, Total 6.1 g/dL (6.4-8.2)
[2022-04-01] MEDS ORDERED: NA CHLORIDE 0.9% 1,000 ML ONE (07:09)
[2022-04-01] MEDS ORDERED: LIDOCAINE 2% MPF 5 ML VIAL ONE (07:14)
[2022-04-01] MEDS ORDERED: propofoL 200 MG/20 ML VIAL IV ONE (07:14)
[2022-04-01] MEDS ORDERED: ONDANSETRON 4 MG/2 ML VIAL ONE (07:15)
[2022-04-01] MEDS ORDERED: dexAMETHasone 10 MG/ML VIAL ONE (07:15)
[2022-04-01] MEDS ORDERED: FENTANYL CITR 100 MCG/2 ML ONE (07:15)
[2022-04-01] MEDS ORDERED: KETOROLAC 30 MG/ML INJ ONE (07:15)
[2022-04-01] MEDS ORDERED: Phenylephrine HCl 10 MG/ML 1 ML VIAL ONE (07:21)
[2022-04-01] MEDS: INSULIN -REGULAR HUMAN 50 UNIT/0.5 ML ML SQ SCH ×4 (07:30→23:22)
[2022-04-01] MEDS ORDERED: GLYCOPYRROLATE 0.2 MG/ML SYR ONE (07:46)
[2022-04-01] MEDS ORDERED: CEFAZOLIN SODIUM 1 GM/VIAL ONE (07:58)
--- NOTE | 2022-04-01 08:45 | P.BOP ---
Preoperative diagnosis: left nondisplaced femoral neck fracture Postoperative diagnosis: same Primary procedure: closed reduction/in situ hip screws Estimated blood loss: 10 ccs Anesthesia: General Transferred to: Recovery Room Condition: Good
[2022-04-01] MEDS: FUROSEMIDE 40 MG/4 ML VIAL IV SCH ×2 (11:28→15:44)
--- NOTE | 2022-04-01 13:54 | CON ---
Date of Consultation: 03/31/2022 History Of Present Illness: This is my first time seeing this patient to my knowledge. She is an 81 -year-old female who unfortunately fell this morning and injured her left hip. She was seen in exam in the emergency department where she was ruled out for other injuries other than some abrasions to b oth of her upper extremities. Palpation of all her long bones and joints does not cause any pain or problems with the exception of movement of the left lower extremity, which causes pain in the region of the hip. There is no pain with direct palpation of the ankle or knee. Laboratory Data: Review of x-rays reveal a very slightly displaced subcapital femoral neck fracture. Assessment: This is an 81-year-old female now with a slightly displaced and impacted femoral neck fr acture. I discussed with her possible treatment methods including bipolar hemiarthroplasty, screw fi xation, as well as nonoperative management. At this time, we will plan for screw fixation tomorrow a fter being seen and admitted by the hospitalist. All of her questions have otherwise been answered. JEM Voice ID: [id number] Report ID: [id number]
--- NOTE | 2022-04-01 16:03 | OP ---
Date of Procedure: 04/01/2022 Surgeon: David Anderson MD Indication: Ms. Rashid is a patient, who unfortunately fell yesterday morning injuring her left hi p. She was seen and examined in the emergency department where she was ruled out for other injuries other than small scrapes and abrasions, but unfortunately x-rays demonstrated a very slightly impacte d, though essentially nondisplaced left femoral neck fracture. Risks, benefits, and alternatives of different methods of treating this have been discussed with the patient. She states she understands things as presented and at this time we will proceed with gentle realignment as well as screw fixatio n. All of her questions are otherwise answered and she agrees to proceed. Description Of Procedure: The patient was taken to the operating room. She was placed asleep on the bed. She was then placed carefully onto the fracture table where she was appropriately positioned w ith bony prominences being checked. After this, the C-arm was brought in and was found to be could b e a little bit more valgus. Also on the lateral, it was slightly posteriorly angulated. Decision wa s made to go head and continue with the in situ/closed reduction and pinning. The hip was then prepp ed and draped in the usual sterile fashion. After this, a guide pin was then placed at the superior anterior position as it was felt if we were going to get any compressive forces that this would be th e direction we would like for increased valgus and to perhaps correct some posterior comminution. As the pin nears the fracture site, a slight amount of traction was placed as well as pressure on the a nterior hip, which brings the hip out of any varus and posterior collapse. The pin was then advanced to the tip and checked under biplanar C-arm radiography to be in the correct position. After this, a second posterior superior pin was then placed in the same technique. After this, the inferior cent er pin was then placed. After all the pins had been placed, it appeared to capture this well in good position. Small stab wounds were made and there were each measured. This was followed by drilling of the outer cortex and application first of the superior pin anteriorly. Then, the second superior pin and after this the third screw appeared to be not quite an 85, the decision was made to place a w augustina to add a little bit of a spacer and then this screw was placed in the same fashion. After this , pins were removed. It was assessed under biplanar C-arm radiography and appeared the screws were i n good position. The skin was then stapled. She was paced in an Aquacel and awakened. JEM Voice ID: [id number] Report ID: [id number]
--- NOTE | 2022-04-01 16:08 | P.PN ---
Date of Service: 04/01/22 Subjective: s/p L hip surgery today doing ok, pain tolerable no abd pain, no nausea/vomiting ROS: 10 point ROS as noted above, otherwise negative Physical exam GEN: Alert, oriented, NAD HEENT: Normal conjunctiva, sclera anicteric CV: Regular rate and rhythm, no edema Pulm: Non-labored respirations, clear to auscultation bilaterally ABD: Soft, nontender, nondistended MSK: LLE: surgical dressing in place Neuro: Normal speech, normal affect, moves distal toes, intact sensation Problem List L Hip fracture s/p fall; now s/p surgical correction syncope Elevated LFTs HTN IDDM2 syncopal episode, bent down and stood up telemetry monitoring cardiology consulted for clearance s/p hip surgery 04/01 diet as tolerated DVT prophylaxis pain meds as needed confirm home meds, restart as appropriate Elevated LFTs Unclear etiology Patient denies any right upper quadrant pain/tenderness No history of liver issues according the patient and her family She reports only drinking 1 standard glass of wine a week, no history of heavy alcohol use AST to ALT ratio on 03/31 more consistent of alcoholic liver pathology, however ALT and alk phos now increased Liver ultrasound unremarkable, noted mildly dilated CBD, patient is status post cholecystectomy several years ago Possible cholestatic picture Will check with Ortho and radiology, if screws from surgery today compatible with MRI, patient may need MRCP/ERCP GGT, hepatitis panel, AMA, AFP, lipase ordered Code: full Dispo: home, ~2-3 days Time Spent Managing Pts Care (In Minutes): 35
--- NOTE | 2022-04-01 21:32 | RAD REPORT ---
EXAM DESCRIPTION: - Hip in OR Left 2 View - 04/01/2022 9:06 am CLINICAL HISTORY: LEFT HIP PINNING COMPARISON: None FINDINGS/IMPRESSION: Four intraoperative fluoroscopic images were submitted showing placement of can nulated screws across the left femoral neck. Cumulative dose: 20.8 mGy Fluoro time: 1.7 minutes
[2022-04-02 05:52] LABS: Hematocrit 30.7 % (36.0-45.0); MCV 87.4 fL (80-100); MPV 9.4 fL (7.6-11.3); RBC Red Blood Cell Count 3.51 M/uL (3.86-4.86)
[2022-04-02 06:14] LABS: Albumin 1.9 g/dL (3.4-5.0); Bilirubin Total 0.4 mg/dL (0.2-1.0); Magnesium 1.6 mg/dL (1.8-2.4); Phosphorus 4.6 mg/dL (2.5-4.9); Potassium 4.5 mmol/L (3.5-5.1); Protein, Total 5.4 g/dL (6.4-8.2)
[2022-04-02] MEDS: AMLODIPINE 10 MG TAB PO SCH (08:29)
[2022-04-02] MEDS: HYDRALAZINE HCL 25 MG TABLET PO SCH (08:29)
[2022-04-02] MEDS: INSULIN -REGULAR HUMAN 50 UNIT/0.5 ML ML SQ SCH ×4 (08:29→21:28)
--- NOTE | 2022-04-02 12:19 | RAD REPORT ---
EXAM DESCRIPTION: US - Renal Ultrasound-Complete - 04/02/2022 11:39 am CLINICAL HISTORY: VINAY COMPARISON: Abdomen Exam Limited dated 03/31/2022; Thorax Wo Con dated 01/31/2022 FINDINGS: Both kidneys are normal in size, shape and echotexture. The right kidney measures 11.3 cm. Suspicious mass along the lower pole the right kidney measuring 7. 3 cm which appears solid.. No hydronephrosis. The left kidney measures 10.9 cm.. Probable cyst in the interpolar aspect of the left kidney. No hydr onephrosis. The urinary bladder is incompletely distended without gross abnormality seen. IMPRESSION: Right lower pole renal mass measuring over 7 cm concerning for neoplasm. Considered brian l protocol CT or MRI for further evaluation. No hydronephrosis.
[2022-04-02] MEDS: MORPHINE 2 MG/ML SYR IV PRN (12:40)
--- NOTE | 2022-04-02 12:46 | CON ---
Date of Consultation: 04/02/2022 Reason For Consultation: Elevated BUN and creatinine, fluid management. History Of Present Illness: This is an 81-year-old female with significant past medical history of silvio campbell since 1989, complicated with neuropathy, no retinopathy, hypertension, hyperlipidemia, COPD, the patient was in her regular state of health, had syncope and mechanical fall yesterday, had hip fr acture, status post surgery. We have been consulted as her lab showed elevation in BUN and creatinin e. Upon arrival to the hospital, the patient's creatinine was 1.1, rising gradually to 1.8. The pat ient was on diuresis. The patient has elevation in her blood sugar and as I mentioned, the patient u ndergone surgery. There is no mention for any contrast. No documentation for any low blood pressure . The patient denied taking any nonsteroidal. Past Medical History: Includes; 1.Hypertension. 2.Hyperlipidemia. 3.Recently found on CAD. 4.Diabetes since 1989, complicated with neuropathy. 5.COPD. Family History: Positive for hypertension. Social History: Active smoker, occasional alcohol. Denied drugs abuse. Home Medications: Include ramipril, metoprolol, hydralazine, Lasix, folic acid, amlodipine. Current Medications: Amlodipine, hydralazine, insulin, Zofran. Past Surgical History: Includes hip surgery. Review of Systems: Head and Neck: Has lightheaded. GI: No nausea. No vomiting. : No polyuria. No dysuria. No hematuria. 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 Respiratory: Has shortness of breath. Cardiovascular: Has orthopnea. Endocrine: No polydipsia. Skin: No rash. Neuro: Has syncopal episode. Musculoskeletal: Has hip pain. Physical Examination: Vital Signs: When I saw the patient; blood pressure of 180/69, pulse 51, afebrile. Chest: Crackles bilateral. Heart: S1, S2. Systolic murmur. Abdomen: Soft, nontender. Extremity: Trace edema with fixation on the left hip. Neurologic: Alert. No focality. Laboratory Data: Sodium 139, potassium 4.5, bicarb 29, BUN 46, creatinine 1.8, GFR 27, calcium 7.7, phosphorus 4.6, magnesium 1.6. Albumin is 1.9. Corrected calcium is 9.3. Blood sugar above 200. W BC 5.8, H and H 10.1/30.7, and platelets 140. Urinalysis is still pending. Renal ultrasound done, n ot read yet. Assessment And Plan: 1.Acute kidney injury, possible secondary to prerenal, secondary to diuresis, superimposed with MARIBELL inhibitor/cardiorenal. I am going to go ahead and follow up the ultrasound. We will hold on the diu resis for today and we will follow up uric acid. I am going to send for PTH to evaluate for the tool room supervisor nicity of the disease and we will send for protein and creatinine. We will follow up with Cardiology . With the presence of the anemia, I am going to send for serum protein electrophoresis to rule out any light chain disease. I am going to send for CK to evaluate for any rhabdomyolysis component. 2.Hypertension, not controlled. The patient is bradycardiac. Started on amlodipine. I am going to add hydralazine for better blood pressure control. Given the cardiac history, we will add nitroglyc usha patch. 3.Hip fracture as by primary. Follow up with Ortho. Thank you, Dr. John for allowing us to participate in the care of your patient. SORAIDA/JULIO Voice ID: [id number] Report ID: [id number]
[2022-04-02 14:02] LABS: Specific Gravity 1.013 (1.005-1.030); Urine Bilirubin NEGATIVE (Negative); Urine Blood 1+ (Negative); Urine Clarity Extremely Turbid (Clear); Urine Color Light-Orange (Yellow); Urine Glucose NEGATIVE (Negative); Urine Mucus 2+ /HPF (None Seen); Urine Protein 1+ (Negative); Urine RBC 21-50 /HPF (None Seen); Urine Urobilinogen Normal (Normal); Urine WBC Clump Many /HPF (None Seen)
--- NOTE | 2022-04-02 17:38 | P.PN ---
Date of Service: 04/02/22 Subjective: improving having pain at left hip, but medication helps reports cloudy urine ROS: 10 point ROS as noted above, otherwise negative Physical exam GEN: Alert, oriented, NAD HEENT: Normal conjunctiva, sclera anicteric CV: Regular rate and rhythm, 1+ bilateral lower extremity edema Pulm: mildly labored respirations, on 3L NC ABD: Soft, nontender, nondistended MSK: LLE: surgical dressing in place Neuro: Normal speech, normal affect, moves distal toes, intact sensation Problem List L Hip fracture s/p fall; now s/p surgical correction syncope UTI VINAY Elevated LFTs HTN IDDM2 syncopal episode, bent down and stood up unclear etiology ?orthostatic UA finally obtained, with bacteriuria and pyuria start rocephin 04/02 VINAY ?cardiorenal continue lasix nephrology consulted renal u/s ordered telemetry monitoring cardiology consulted for clearance s/p hip surgery 04/01 diet as tolerated DVT prophylaxis pain meds as needed confirm home meds, restart as appropriate Elevated LFTs Unclear etiology ?Cardiorenal / congestion Patient denies any right upper quadrant pain/tenderness No history of liver issues according the patient and her family She reports only drinking 1 standard glass of wine a week, no history of heavy alcohol use AST to ALT ratio on 03/31 more consistent of alcoholic liver pathology, however ALT and alk phos now increased Liver ultrasound unremarkable, noted mildly dilated CBD, patient is status post cholecystectomy several years ago Possible cholestatic picture GGT, hepatitis panel, AMA, AFP ordered Code: full Dispo: home, ~2-3 days Time Spent Managing Pts Care (In Minutes): 35
[2022-04-02] MEDS: FUROSEMIDE 40 MG/4 ML VIAL IV SCH (18:56)
--- NOTE | 2022-04-02 19:12 | RAD REPORT ---
EXAM DESCRIPTION: RAD - Chest Single View - 04/02/2022 6:59 pm CLINICAL HISTORY: hypoxia, eval pulm edema vs atelectasis COMPARISON: Chest Pa And Lat (2 Views) dated 03/13/2022; Chest Single View dated 02/15/2022; Chest Pa And Lat (2 Views) dated 12/14/2021 FINDINGS: Lines: None. Lungs: Diffuse prominence of the pulmonary interstitium . Pleural: Moderate left and small right pleural effusions. Cardiac: Cardiomegaly. Mediastinum: Within normal limits. Bones: No acute fractures. Other: None IMPRESSION: No significant change in pleural effusions. This may be on the basis of edema.
[2022-04-02] MEDS ORDERED: CEFTRIAXONE 1,000 MG in NA CHLORIDE 0.9% 50 ML IVPB ONE (22:25)
[2022-04-03 03:51] LABS: RBC Red Blood Cell Count 3.83 M/uL (3.86-4.86)
[2022-04-03 04:47] LABS: Albumin 2.1 g/dL (3.4-5.0); Bilirubin Total 0.3 mg/dL (0.2-1.0); Magnesium 1.6 mg/dL (1.8-2.4); Phosphorus 2.9 mg/dL (2.5-4.9); Protein, Total 6.1 g/dL (6.4-8.2); Uric Acid 8.3 mg/dL (2.6-6.0)
[2022-04-03 04:48] LABS: Ferritin 203.9 ng/mL (8-388); Folic Acid, (Folate) 19.9 ng/mL (3.1-17.5); Thyroid Stimulating Hormone 2.18 uIU/mL (0.360-3.740)
[2022-04-03] MEDS: INSULIN -REGULAR HUMAN 50 UNIT/0.5 ML ML SQ SCH ×4 (07:30→20:55)
[2022-04-03] MEDS ORDERED: MAGNESIUM SULFATE 1 gm IVPB 1 GM/100 ML BAG IV ONE (08:00)
[2022-04-03] MEDS: FUROSEMIDE 40 MG/4 ML VIAL IV SCH ×2 (08:27→17:29)
[2022-04-03] MEDS: HYDRALAZINE HCL 25 MG TABLET PO SCH (08:28)
[2022-04-03] MEDS: AMLODIPINE 10 MG TAB PO SCH (08:28)
[2022-04-03] MEDS: CEFTRIAXONE 1,000 MG in NA CHLORIDE 0.9% 50 ML IVPB SCH (08:53)
--- NOTE | 2022-04-03 16:29 | P.PN ---
Date of Service: 04/03/22 Subjective: improving pain improved worked with PT urine cloudy, but reports it's improving ROS: 10 point ROS as noted above, otherwise negative Physical exam GEN: Alert, oriented, NAD HEENT: Normal conjunctiva, sclera anicteric CV: Regular rate and rhythm, trace-1+ bilateral lower extremity edema Pulm: mildly labored respirations, on 3L NC ABD: Soft, nontender, nondistended MSK: LLE: surgical dressing in place Neuro: Normal speech, normal affect, moves distal toes, intact sensation Problem List L Hip fracture s/p fall; now s/p surgical correction syncope UTI VINAY Elevated LFTs HTN IDDM2 syncopal episode, bent down and stood up unclear etiology ?orthostatic UA finally obtained, with bacteriuria and pyuria start rocephin 04/02 s/p hip surgery 04/01 diet as tolerated DVT prophylaxis pain meds as needed PT/OT consulted, possible rehab candidate family prefer rehab VINAY ?cardiorenal continue lasix nephrology consulted renal u/s ordered - mass noted on R inferior renal pole, radiology recomm ended CT with contrast vs MRI discussed with nephro - this does not appear to be in location to impact renal function at this time, given VINAY, recommend avoiding contrast at this time continue workup / plan for imaging as outpatient in near future patient has had ~60lb weight loss in 1.5 yrs, with chronic diarrhea that began ~1.5 years ago telemetry monitoring cardiology consulted for clearance confirm home meds, restarted as appropriate Elevated LFTs Unclear etiology ?Cardiorenal / congestion Patient denies any right upper quadrant pain/tenderness No history of liver issues according the patient and her family She reports only drinking 1 standard glass of wine a week, no history of heavy alcohol use AST to ALT ratio on 03/31 more consistent of alcoholic liver pathology, however ALT and alk phos now increased Liver ultrasound unremarkable, noted mildly dilated CBD, patient is status post cholecystectomy several years ago Possible cholestatic picture GGT, hepatitis panel, AMA, AFP ordered Code: full Dispo: possible rehab candidate, ~2-3 days Time Spent Managing Pts Care (In Minutes): 35
--- NOTE | 2022-04-04 06:15 | PN ---
Date of Progress Note: 04/03/2022 Subjective: Acute kidney injury and Nephrology consultation was requested for elevated BUN and creat inine. The patient is an 81-year-old woman with a significant medical history related to diabetes me llitus. She was diagnosed with diabetes mellitus in 1989. She has history of diabetic nephropathy, neuropathy, retinopathy, hypertension, hyperlipidemia, COPD. The patient was found to have acute kid joseph injury. Creatinine level on arrival to the hospital was 1.8 and baseline creatinine level is 1.1 . The patient denied taking a nonsteroidal anti-inflammatory medication. Review of Systems: Denies headache, vision changes. Denies chest pain, palpitation. Physical Examination: General: Not in acute distress. Chest: Crackles bilaterally. Heart: S1, S2. There is a 2/6 systolic murmur. Abdomen: Soft, nontender. Extremities: Trace edema. Impression And Plan: Acute kidney injury secondary to prerenal azotemia and diuretic effect superimp osed with MARIBELL inhibitor, effect, and cardiorenal syndrome. The patient had renal ultrasound ordered. Continue to monitor urine output and intake. The patient was to have workup with Cardiology for co ngestive heart failure. Patient will have proteinuria workup to rule out monoclonal gammopathy of un known significance. CK was ordered to rule out rhabdomyolysis. Hypertension: Not well controlled. Patient was started on a calcium channel kait. Continue amlo dipine, adjust treatment according to blood pressure. The patient may require also hydralazine for a dequate blood pressure control. At this point, MARIBELL inhibitor is on hold due to acute kidney injury. EB/MODL Voice ID: [id number] Report ID: [id number]
[2022-04-04 06:28] LABS: Albumin 2.1 g/dL (3.4-5.0); Bilirubin Total 0.4 mg/dL (0.2-1.0); Magnesium 1.8 mg/dL (1.8-2.4); Phosphorus 2.7 mg/dL (2.5-4.9); Potassium 3.6 mmol/L (3.5-5.1)
[2022-04-04] MEDS ORDERED: POTASSIUM CL SA 10 MEQ TAB PO ONE (07:19)
[2022-04-04] MEDS: INSULIN -REGULAR HUMAN 50 UNIT/0.5 ML ML SQ SCH ×4 (07:30→21:27)
[2022-04-04] MEDS: CEFTRIAXONE 1,000 MG in NA CHLORIDE 0.9% 50 ML IVPB SCH (08:08)
[2022-04-04] MEDS: HYDRALAZINE HCL 25 MG TABLET PO SCH (08:32)
[2022-04-04] MEDS: FUROSEMIDE 40 MG/4 ML VIAL IV SCH ×2 (08:32→16:14)
[2022-04-04] MEDS: AMLODIPINE 10 MG TAB PO SCH (08:32)
--- NOTE | 2022-04-04 16:33 | P.PN ---
Subjective Date of Service: 04/04/22 Chief Complaint: L hip fracture Patient has no new complaint. She is tolerating physical therapy. She states her pain is well controlled. Physical Examination - Vital Signs Temperature: 97 F Blood Pressure: 121/58 Pulse: 71 Respirations: 15 Pulse Ox (%): 97 Assessment And Plan - Plan Physical exam GEN: Alert, oriented x 3, NAD HEENT: Normal conjunctiva, sclera anicteric CV: Regular rate and rhythm, trace-1+ bilateral lower extremity edema Pulm: Nonlabored respirations. Diminished breath sounds in bilateral bases. ABD: Soft, nontender, nondistended MSK: LLE: surgical dressing in place Neuro: Normal speech, normal affect, no focal motor deficit. Problem List L Hip fracture s/p fall; now s/p surgical correction syncope UTI VINAY Elevated LFTs HTN IDDM2 Pleural effusion Syncopal episode. unclear etiology ?orthostatic UA finally obtained, with bacteriuria and pyuria Continue Rocephin. She needs 3 days of treatment. s/p hip surgery 04/01 diet as tolerated DVT prophylaxis pain meds as needed Continue PT and OT. Insurance denied acute rehab. Needs peer to peer VINAY Patient has been on lasix nephrology consulted VINAY likely prerenal renal u/s ordered - mass noted on R inferior renal pole, radiology recommended CT with contrast vs MRI continue workup for renal mass as outpatient. History of chronic diarrhea with weight loss. Elevated LFTs Unclear etiology Patient denies any right upper quadrant pain/tenderness AST and ALT elevations resolved. ALP remain elevated. Likely cholestasis. Liver ultrasound unremarkable, noted mildly dilated CBD, patient is status post cholecystectomy several years ago GGT, hepatitis panel, AMA, AFP are pending. Code: full Dispo: Pending peer to peer review. Time Spent Managing Pts Care (In Minutes): 29
[2022-04-04 18:11] LABS: HBsAG Nonreactive (Nonreactive)
--- NOTE | 2022-04-04 22:30 | PN ---
Date of Progress Note: 04/04/2022 Chief Complaint: Abnormal renal function test, elevated BUN and creatinine. Subjective: Patient is an 81-year-old woman with significant past medical history related to diabete s mellitus. She was diagnosed with diabetes mellitus type 2 in 1989. She has history of diabetic ne phropathy, neuropathy, retinopathy; hypertension; hyperlipidemia; COPD. She presented to the [facility] because of generalized weakness. She was found to have acute kidney injury. Renal function has de clined. Serum creatinine was up to 1.8. Of note, baseline creatinine level was 1.1 previously. Review of Systems: Denies fever or chills. Physical Examination: Lungs: Clear to auscultation bilaterally. Heart: S1, S2. Abdomen: Soft. Extremities: Trace edema. Impression And Plan: 1.Acute kidney injury secondary to prerenal azotemia and diuretic effect with overdiuresis superimpo sed with MARIBELL inhibitor and cardiorenal syndrome. Patient had renal ultrasound done. Patient will fo llow up with Cardiology for congestive heart failure. Patient will have proteinuria workup to rule o ut monoclonal gammopathy of unknown significance. CK was ordered to rule out rhabdomyolysis. 2.Hypertension, suboptimal control. Patient was started on calcium channel kait as well as hydra lazine. Monitor blood pressure. At this point, MARIBELL inhibitor is on hold due to acute kidney injury. Adjust hydralazine for blood pre ssure control. EB/MODL Voice ID: [id number] Report ID: [id number]
[2022-04-05 05:56] LABS: Absolute Lymphocytes (CBC) 0.4 K/uL (0.7-4.9); Hematocrit 33.4 % (36.0-45.0); Lymphocytes % 10.9 % (15.3-44.8); MCV 86.7 fL (80-100); MPV 8.5 fL (7.6-11.3); RBC Red Blood Cell Count 3.85 M/uL (3.86-4.86)
[2022-04-05 06:13] LABS: Magnesium 1.8 mg/dL (1.8-2.4); Phosphorus 2.8 mg/dL (2.5-4.9); Potassium 3.8 mmol/L (3.5-5.1)
[2022-04-05] MEDS: INSULIN -REGULAR HUMAN 50 UNIT/0.5 ML ML SQ SCH ×4 (07:30→22:44)
[2022-04-05] MEDS: CEFTRIAXONE 1,000 MG in NA CHLORIDE 0.9% 50 ML IVPB SCH (08:26)
[2022-04-05] MEDS: AMLODIPINE 10 MG TAB PO SCH (08:28)
[2022-04-05] MEDS: HYDRALAZINE HCL 25 MG TABLET PO SCH (08:28)
[2022-04-05] MEDS: FUROSEMIDE 40 MG/4 ML VIAL IV SCH ×2 (08:30→17:22)
[2022-04-05] MEDS ORDERED: POTASSIUM CL SA 10 MEQ TAB PO ONE (09:00)
[2022-04-05] MEDS ORDERED: MAGNESIUM SULFATE 1 gm IVPB 1 GM/100 ML BAG IV ONE ×2 (09:00→11:24)
--- NOTE | 2022-04-05 12:29 | RAD REPORT ---
EXAM DESCRIPTION: Briant Single View04/05/2022 12:12 pm CLINICAL HISTORY: Chest pain COMPARISON: April 02, 2022 FINDINGS: Left pleural effusion is mildly diminished in size and is probably small to moderate. Small right pleural effusion. Bibasilar atelectasis. Upper lobes appear clear. Heart is mildly enlarged
--- NOTE | 2022-04-05 14:03 | P.PN ---
Subjective Date of Service: 04/05/22 Chief Complaint: L hip fracture No new complaint. She is maintained on 2 L oxygen by nasal cannula She is tolerating physical therapy. Physical Examination - Vital Signs Temperature: 97.5 F Blood Pressure: 158/70 Pulse: 64 Respirations: 14 Pulse Ox (%): 94 Assessment And Plan - Plan Physical exam GEN: Alert, oriented x 3, NAD HEENT: Normal conjunctiva, sclera anicteric CV: Regular rate and rhythm, trace-1+ bilateral lower extremity edema Pulm: Nonlabored respirations. Diminished breath sounds in bilateral bases. ABD: Soft, nontender, nondistended MSK: LLE: surgical dressing in place Neuro: Normal speech, normal affect, no focal motor deficit. Problem List L Hip fracture s/p fall; now s/p surgical correction syncope UTI VINAY Elevated LFTs HTN IDDM2 Pleural effusion Syncopal episode. unclear etiology Suspect orthostatic UA with bacteriuria and pyuria. Urine culture grew Klebsiella pneumonia-pansensitive. Continue Rocephin. She needs 3 days of treatment. s/p hip surgery 04/01 diet as tolerated DVT prophylaxis pain meds as needed Continue PT and OT. Insurance denied acute rehab. Needs peer to peer VINAY/alkalosis Patient has been on lasix nephrology is following. VINAY likely prerenal renal u/s ordered - mass noted on R inferior renal pole, radiology recommended CT with contrast vs MRI continue workup for renal mass as outpatient. History of chronic diarrhea with weight loss. I suspect alkalosis is due to IV Lasix. Obtain ABG to r/o CO2 retention Elevated LFTs Unclear etiology Patient denies any right upper quadrant pain/tenderness AST and ALT elevations resolved. ALP remain elevated. Likely cholestasis. Liver ultrasound unremarkable, noted mildly dilated CBD, patient is status post cholecystectomy several years ago GGT, hepatitis panel, AMA, AFP are pending. Code: full Dispo: Acute rehab pending peer to peer review. Time Spent Managing Pts Care (In Minutes): 29
--- NOTE | 2022-04-05 14:51 | PN ---
Date of Progress Note: 04/05/2022 Subjective: The patient was admitted with acute kidney injury secondary to cardiorenal. The patient was diuresed. Blood pressure still elevated. Physical Examination: Vital Signs: Blood pressure 158/70, pulse of 64, afebrile. The patient had good urine output of 280 0, negative of 1 L. Chest: Wheezing on the right base. Heart: S1, S2. Systolic murmur. Abdomen: Soft, nontender. Extremity: Trace edema. Neurologic: Alert. No focality. Laboratory Data: WBC 3.9, H and H 11.1/33.4. Sodium 143, potassium 3.8, bicarb 37, BUN 35, creatini ne 0.9, GFR of 58, calcium 8.5, phosphorus 2.8, magnesium 1.8, albumin 2, corrected calcium is 10.1. Current Medications: The patient on include amlodipine 10 mg, hydralazine, ceftriaxone, Lasix 40 mg b.i.d., morphine, KCl. Assessment And Plan: 1.Acute kidney injury secondary to cardiorenal, recovered, resolved, but still on the wet side. I a m going to continue the patient on diuresis. We will get a new chest x-ray for better evaluation of the fluid status for the patient and we will follow up. 2.Hypertension, not controlled. I am going to add a low dose of carvedilol for better blood pressur e control and we will follow up the patient. 3.Bronchitis, pneumonia. Continue current antibiotic. 4.Urinary tract infection. Continue ceftriaxone. Sensitivity acceptable. Dose appropriate. JOAO Voice ID: [id number] Report ID: [id number]
[2022-04-05 16:24] LABS: Arterial Blood Carboxyhemoglob 1.7 % (0-1.5); Blood Gas Oxyhemoglobin 90.2 % (94-97); Blood O2 Saturation 92.7 % (92-98.5)
[2022-04-05] MEDS: carvediloL 3.125 MG TAB PO SCH (17:23)
[2022-04-06] MEDS: carvediloL 3.125 MG TAB PO SCH ×2 (06:15→18:02)
[2022-04-06 06:16] LABS: Albumin 2.1 g/dL (3.4-5.0); Potassium 4.1 mmol/L (3.5-5.1)
[2022-04-06] MEDS: INSULIN -REGULAR HUMAN 50 UNIT/0.5 ML ML SQ SCH ×4 (07:30→21:04)
--- NOTE | 2022-04-06 08:05 | ECHO ---
HEIGHT: 5 ft 6 in WEIGHT: 165 lb 0 oz DATE OF STUDY: 04/05/[address]: Sid Ortega MD 2-DIMENSIONAL: YES M.MODE: YES DOPPLER: YES COLOR FLOW: YES TDS: NO PORTABLE: YES DEFINITY: NO BUBBLE STUDY: NO DIAGNOSIS: CONGESTIVE HEART FAILURE CARDIAC HISTORY: CATHERIZATION: SURGERY: PROSTHETIC VALVE: PACEMAKER: MEASUREMENTS (cm) DIASTOLIC (NORMALS) SYSTOLIC (NORMALS) IVSd 1.3 (0.6-1.2) LA Diam 3.8 (1.9-4.0) LVEF 42% LVIDd 4.8 (3.5-5.7) LVIDs 3.8 (2.0-3.5) %FS 21% LVPWd 1.2 (0.6-1.2) Ao Diam 2.6 (2.0-3.7) 2 DIMENSIONAL ASSESSMENT: RIGHT ATRIUM: NORMAL LEFT ATRIUM: NORMAL RIGHT VENTRICLE: NORMAL LEFT VENTRICLE: NORMAL TRICUSPID VALVE: NORMAL MITRAL VALVE: NORMAL PULMONIC VALVE: NORMAL AORTIC VALVE: NORMAL PERICARDIAL EFFUSION: NONE AORTIC ROOT: NORMAL LEFT VENTRICULAR WALL MOTION: MILD MODERATE GLOBAL HYPOKINESIS. DOPPLER/COLOR FLOW: NORMAL COMMENTS: 1. NO MITRAL VALVE PROLAPSE. 2. LEFT VENTRICULAR EJECTION FRACTION 42%. 3. MILD TO MODERATE HYPOKINESIS. 4. LARGE LEFT PLEURAL EFFUSION. TECHNOLOGIST: Domingo BRITT
[2022-04-06] MEDS: CEFTRIAXONE 1,000 MG in NA CHLORIDE 0.9% 50 ML IVPB SCH (08:29)
[2022-04-06] MEDS: HYDRALAZINE HCL 25 MG TABLET PO SCH (08:30)
[2022-04-06] MEDS: FUROSEMIDE 40 MG/4 ML VIAL IV SCH ×2 (08:30→16:30)
[2022-04-06] MEDS: AMLODIPINE 10 MG TAB PO SCH (08:30)
[2022-04-06 10:02] VITALS: O2SAT 95
--- NOTE | 2022-04-06 13:56 | P.PN ---
Subjective Date of Service: 04/06/22 Chief Complaint: L hip fracture No new complaint. She is maintained on 2 L oxygen by nasal cannula and short of breath with talking. She is tolerating physical therapy. Physical Examination - Vital Signs Temperature: 97.9 F Blood Pressure: 113/52 Pulse: 75 Respirations: 14 Pulse Ox (%): 91 Assessment And Plan - Plan Physical exam GEN: Alert, oriented x 3, NAD HEENT: Normal conjunctiva, sclera anicteric CV: Regular rate and rhythm, trace-1+ bilateral lower extremity edema Pulm: Nonlabored respirations. Diminished breath sounds in bilateral bases. ABD: Soft, nontender, nondistended MSK: LLE: surgical dressing in place Neuro: Normal speech, normal affect, no focal motor deficit. Problem List L Hip fracture s/p fall; now s/p surgical correction syncope UTI VINAY Elevated LFTs HTN IDDM2 Pleural effusion Syncopal episode. unclear etiology Suspect orthostatic UA with bacteriuria and pyuria. Urine culture grew Klebsiella pneumonia-pansensitive. Patient completed IV Rocephin. s/p hip surgery 04/01 diet as tolerated DVT prophylaxis pain meds as needed Continue PT and OT. Insurance denied acute rehab. Social service working on skilled rehab placement. VINAY/alkalosis Patient has been on lasix nephrology is following. VINAY likely prerenal renal u/s ordered - mass noted on R inferior renal pole, radiology recommended CT with contrast vs MRI Obtain CT abdomen with contrast to further evaluate the renal mass. History of chronic diarrhea with weight loss. I suspect alkalosis is due to IV Lasix. ABG also shows some degree of CO2 retention. Elevated LFTs Unclear etiology Patient denies any right upper quadrant pain/tenderness AST and ALT elevations resolved. ALP remain elevated. Likely cholestasis. Liver ultrasound unremarkable, noted mildly dilated CBD, patient is status post cholecystectomy several years ago GGT, hepatitis panel, AMA, AFP are pending. Acute respiratory failure with hypoxia/pleural effusion Acute respiratory failure likely secondary to large left pleural effusion. Ordered US guided thoracentesis. Pleural fluid studies Code: full Dispo: Skilled rehab Time Spent Managing Pts Care (In Minutes): 34
--- NOTE | 2022-04-06 16:22 | RAD REPORT ---
EXAM DESCRIPTION: CTAbdomen Pelvis W/Wo Contrast - 04/06/2022 2:53 pm CLINICAL HISTORY: Renal mass COMPARISON: Renal Ultrasound-Complete dated 04/02/2022 TECHNIQUE: CT of the abdomen and pelvis was performed with and without contrast. All CT scans are performed using dose optimization technique as appropriate and may include automated exposure control or mA/KV adjustment according to patient size. FINDINGS: Lower chest: Small moderate left pleural effusion. Small right pleural effusion . Probable underlying atelectasis. Liver: No acute abnormality or suspicious lesions. Biliary: Extrahepatic biliary ductal dilatation measuring 10 millimeters. Cholecystectomy. Stomach: No significant focal abnormality. Duodenum: No significant focal abnormality. Pancreas: No significant abnormality. Spleen: No significant abnormality. Adrenal: No suspicious lesions. Kidney/ureter: 7.7 cm hypervascular right lower pole renal mass. This is centered in the cortex and i s predominantly exophytic though there is not endophytic component extending into the renal hilum. A right lower pole interlobular vein is dilated. The renal vein is normal in caliber. The IVC is normal in caliber. A 15 mm hypervascular nodule in the right posterior paranephric space is noted. Retroperitoneum: No retroperitoneal adenopathy. Vascular: No aneurysm. Atherosclerosis . Bowel: No significant focal abnormality. Peritoneum: No ascites or free air. Bladder: Grossly unremarkable. Reproductive: No adnexal masses. Bones: No acute fracture. 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 The lesion measure s just under 8 cm. Distension of a right lower pole interlobular vein suggesting tumor thrombus. The renal vein and IVC, however, are normal in caliber and not involved. Hypervascular nodule in the righ t posterior paranephric space favored to represent a varix rather than tumor implant. No retroperiton eal lymphadenopathy.
[2022-04-06 17:14] LABS: Albumin, (SPE) 2.4 g/dL (3.8-4.8); Alpha-1-Globulins 0.5 g/dL (0.2-0.3); Gamma Globulins 0.7 g/dL (0.8-1.7); INTERPRETATION REPORT
--- NOTE | 2022-04-06 21:42 | PN ---
Date of Progress Note: 04/06/2022 The patient was admitted with cardiorenal syndrome. The patient had been started on diuresis. Kidne y function has been improved significantly. Patient's shortness of breath persists, but much better t parker before. Physical Examination: Vital Signs: Blood pressure 113/52, pulse of 75, afebrile. The patient had good urine output of 160 0, negative of 440. Chest: Faint rales on the left base. Heart: S1, S2, systolic murmur. Abdomen: Soft. Nontender. EXTREMITIES: No edema. NEUROLOGIC: Alert, No focality. Laboratory Data: Hemoglobin 11.1. Sodium 144, potassium 4.1, bicarb 38, BUN 33, creatinine 1, GFR o ff 53. Calcium 8.6, phosphorus 3, magnesium of 2. Current Medications: The patient on include: 1.Ceftriaxone. 2.Amlodipine 10 mg. 3.Carvedilol 3.125 b.i.d. 4.Hydralazine 25 daily. 5.Lasix 40 b.i.d. 6.Zofran. 7.Magnesium oxide. Assessment And Plan: 1.Acute kidney injury secondary to cardiorenal. The patient starts looking to me more towards naima l volume supported with the finding on the chest x-ray. I am going to continue current diuresis dose . We will consider switching to oral tomorrow or day after. 2.Hypertension, Controlled optimal. Continue current medication. 3.Bronchitis. Continue current antibiotic. 4.Urinary tract infection, secondary to Klebsiella pneumonia. Continue current antibiotic. Will fo llow up with the primary. JAOO Voice ID: [id number] Report ID: [id number]
[2022-04-07 04:34] LABS: Albumin 2.2 g/dL (3.4-5.0); Magnesium 2.1 mg/dL (1.8-2.4); Phosphorus 3.3 mg/dL (2.5-4.9); Potassium 3.9 mmol/L (3.5-5.1)
[2022-04-07] MEDS: carvediloL 3.125 MG TAB PO SCH ×2 (05:58→17:11)
[2022-04-07] MEDS: INSULIN -REGULAR HUMAN 50 UNIT/0.5 ML ML SQ SCH ×3 (07:30→16:27)
[2022-04-07] MEDS ORDERED: POTASSIUM CL SA 10 MEQ TAB PO ONE (09:00)
--- NOTE | 2022-04-07 09:46 | RAD REPORT ---
EXAM DESCRIPTION: RAD - Chest Single View - 04/07/2022 9:33 am CLINICAL HISTORY: Post thoracentesis chest film COMPARISON: Portable chest April 05 TECHNIQUE: AP portable chest image was obtained 04/07/2022 9:33 am . FINDINGS: Post thoracentesis chest film shows no identifiable left-side pneumothorax. Left pleural e ffusion has substantially reduced in size. Minimal right costophrenic angle blunting is present. No p ulmonary edema or acute lung parenchymal process. Heart size is normal. Delete select IMPRESSION: No post thoracentesis pneumothorax identified.
[2022-04-07] MEDS: HYDRALAZINE HCL 25 MG TABLET PO SCH (09:49)
[2022-04-07] MEDS: FUROSEMIDE 40 MG/4 ML VIAL IV SCH ×2 (09:49→16:27)
[2022-04-07] MEDS: AMLODIPINE 10 MG TAB PO SCH (09:51)
[2022-04-07] MEDS: CEFTRIAXONE 1,000 MG in NA CHLORIDE 0.9% 50 ML IVPB SCH (09:53)
--- NOTE | 2022-04-07 09:55 | RAD REPORT ---
EXAM DESCRIPTION: US - Thoracentesis w/ US Guide - 04/07/2022 9:38 am CLINICAL HISTORY: Left pleural effusion COMPARISON: Chest exam April 05 TECHNIQUE: The patient presents for ultrasound-guided left-sided thoracentesis. The procedure, risk s and alternatives were discussed with the patient in detail. Oral and written consent were obtained. Time out procedure was performed. The patient had no contraindicated allergy or medication history . PT, INR values within acceptable limits. Preliminary sonographic evaluation identified posterior left chest access site. The skin and deeper tissues were anesthetized with 1 percent lidocaine. Under direct sonographic visualization, a thorac entesis catheter was advanced into the left pleural cavity. Approximately 15 mL of pleural fluid cassi ined for laboratory studies to be ordered by primary service. Approximately 750 mL of pleural fluid w as removed. At the conclusion of the procedure, the thoracentesis catheter was withdrawn and a bandage placed at the puncture site. Postprocedure care and precaution instructions were given to the patient. Post th oracentesis chest film showed no pneumothorax. Patient was returned to the floor for continued care. IMPRESSION: Ultrasound-guided left thoracentesis was performed as detailed. Approximately 750 mL of pleural fluid removed. Approximately 15 mL of pleural fluid was retained for laboratory studies to be ordered by the primary service.
--- NOTE | 2022-04-07 10:51 | P.PN ---
Subjective Date of Service: 04/07/22 Chief Complaint: L hip fracture No new complaint. No change in oxygen requirement. Physical Examination - Vital Signs Temperature: 96.8 F Blood Pressure: 138/58 Pulse: 58 Respirations: 17 Pulse Ox (%): 93 Assessment And Plan - Plan Physical exam GEN: Alert, oriented x 3, NAD HEENT: Normal conjunctiva, sclera anicteric CV: Regular rate and rhythm, trace-1+ bilateral lower extremity edema Pulm: Nonlabored respirations. Diminished breath sounds in bilateral bases. ABD: Soft, nontender, nondistended MSK: LLE: surgical dressing in place Neuro: Normal speech, normal affect, no focal motor deficit. Problem List L Hip fracture s/p fall; now s/p surgical correction syncope UTI VINAY Elevated LFTs HTN IDDM2 Pleural effusion Syncopal episode. unclear etiology Suspect orthostatic UA with bacteriuria and pyuria. Urine culture grew Klebsiella pneumonia-pansensitive. Patient completed IV Rocephin. s/p hip surgery 04/01 diet as tolerated DVT prophylaxis pain meds as needed Continue PT and OT. Insurance denied acute rehab. Social service working on skilled rehab placement. VINAY/alkalosis Patient has been on lasix nephrology is following. VINAY likely prerenal renal u/s ordered - mass noted on R inferior renal pole, radiology recommended CT with contrast vs MRI CTA abdomen and pelvis demonstrated large right renal mass after 8 cm highly suspicious for renal cell carcinoma.associated distension of a right lower pole interlobular vein suggesting tumor thrombus. History of chronic diarrhea with weight loss. Urology follow-up as outpatient I suspect alkalosis is due to IV Lasix. ABG also shows some degree of CO2 retention. Elevated LFTs Unclear etiology Patient denies any right upper quadrant pain/tenderness AST and ALT elevations resolved. ALP remain elevated. Likely cholestasis. Liver ultrasound unremarkable, noted mildly dilated CBD, patient is status post cholecystectomy several years ago GGT, hepatitis panel, AMA, AFP are pending. Acute respiratory failure with hypoxia/pleural effusion Acute respiratory failure likely secondary to large left pleural effusion. Status post US guided thoracentesis. 750 mils of pleural fluid drained Pleural fluid studies are pending. Code: full Dispo: Skilled rehab Time Spent Managing Pts Care (In Minutes): 34
[2022-04-07 12:46] LABS: Vitamin D 1,25-Dihydroxy Total 19 pg/mL (18-72); Vitamin D,1,25-OH2, D2 <8 pg/mL
[2022-04-07 16:28] VITALS: BP 131/60; TEMP 97.2
--- NOTE | 2022-04-07 16:37 | P.DS ---
Admission Date: 03/31/22 Discharge Date: 04/07/22 Disposition: TRANSFER TO INPATIENT REHAB Discharge Condition: FAIR Reason for Admission: L hip fracture Brief History of Present Illness: 81yo F, PMH: IDDM2, HTN presented to ED after fall at home. Patient reported walking outside to grab newspaper, bent over, and felt lightheaded when she stood up. She subsequently fell on the concrete floor causing left proximal femur fracture. Ortho was consulted by ED physician who recommended surgery. Patient was hospitalized for further management. Hospital Course: Diagnosis: L Hip fracture s/p fall; now s/p surgical correction syncope UTI VINAY Elevated LFTs HTN IDDM2 Pleural effusion Syncopal episode. unclear etiology Suspect orthostatic. UA with bacteriuria and pyuria. Urine culture grew Klebsiella pneumonia-pansensitive. Patient completed IV Rocephin. s/p hip surgery 04/01 for left hip fracture DVT prophylaxis with Xarelto. pain meds as needed Seen by PT and OT. Patient accepted to acute rehab. She is clinically stable for discharge. VINAY/alkalosis Patient has been on lasix nephrology is following. VINAY likely prerenal renal u/s ordered - mass noted on R inferior renal pole, radiology recommended CT with contrast vs MRI CTA abdomen and pelvis demonstrated large right renal mass about 8 cm highly suspicious for renal cell carcinoma. Associated distension of a right lower pole interlobular vein suggesting tumor thrombus. History of chronic diarrhea with weight loss. Urology follow-up as outpatient. Dr. Kim informed for follow up. Patient informed about her renal mass and the necessary follow-up. I suspect alkalosis is due to IV Lasix. ABG also showed some degree of CO2 retention. Elevated LFTs Unclear etiology Patient denies any right upper quadrant pain/tenderness AST and ALT elevations resolved. ALP remain elevated. Likely cholestasis. Liver ultrasound unremarkable, noted mildly dilated CBD, patient is status post cholecystectomy several years ago hepatitis panel-negative, AMA-mildly positive. AFP is pending Acute respiratory failure with hypoxia/pleural effusion Acute respiratory failure likely secondary to large left pleural effusion. Status post US guided thoracentesis. 750 mils of pleural fluid drained Pleural fluid studies are pending. Vital Signs/Physical Exam: Temp Pulse Resp BP Pulse Ox 97.2 F 67 18 131/60 96 04/07/22 16:00 04/07/22 16:00 04/07/22 16:00 04/07/22 16:00 04/07/22 16:00 General: Alert, In no apparent distress, Oriented x3 HEENT: Mucous membr. moist/pink Neck: Supple, JVD not distended Respiratory: Clear to auscultation bilaterally, Normal air movement Cardiovascular: No edema, Regular rate/rhythm, Normal S1 S2 Gastrointestinal: Soft and benign, Non-distended, No tenderness Musculoskeletal: No swelling Integumentary: No rashes Neurological: Normal strength at 5/5 x4 extr Laboratory Data at Discharge: WBC 3.90 K/uL (4.3-10.9) L 04/05/22 05:32 Hgb 11.1 g/dL (12.0-15.0) L 04/05/22 05:32 Hct 33.4 % (36.0-45.0) L 04/05/22 05:32 Plt Count 160 K/uL (152-406) 04/05/22 05:32 PT 11.2 SECONDS (9.5-12.5) 03/31/22 13:30 INR 1.02 03/31/22 13:30 Sodium 141 mmol/L (136-145) 04/07/22 03:16 Potassium 3.9 mmol/L (3.5-5.1) 04/07/22 03:16 BUN 38 mg/dL (7-18) H 04/07/22 03:16 Creatinine 1.15 mg/dL (0.55-1.3) 04/07/22 03:16 Glucose 144 mg/dL (74-106) H 04/07/22 03:16 Uric Acid 8.3 mg/dL (2.6-6.0) H 04/03/22 03:18 Phosphorus 3.3 mg/dL (2.5-4.9) 04/07/22 03:16 Magnesium 2.1 mg/dL (1.8-2.4) 04/07/22 03:16 Total Bilirubin 0.4 mg/dL (0.2-1.0) 04/04/22 05:44 AST 17 U/L (15-37) 04/04/22 05:44 ALT 67 U/L (12-78) 04/04/22 05:44 Alkaline Phosphatase 352 U/L (45-117) H 04/04/22 05:44 Lipase 21 U/L (73-393) L 04/01/22 15:30 Home Medications: Amlodipine Besylate 10 mg PO DAILY 03/31/22 Atorvastatin Calcium [Lipitor*] 10 mg PO DAILY 03/31/22 Folic Acid 1 mg PO DAILY 03/31/22 Furosemide [Lasix] 40 mg PO DAILY 03/31/22 Hydralazine [Apresoline*] 25 mg PO DAILY 03/31/22 Metoprolol Tartrate 50 mg PO DAILY 03/31/22 Ramipril [Altace] 10 mg PO DAILY 03/31/22 Insulin -Regular Human [Novolin -R*] See Protocol SQ ACHS ml 04/07/22 Insulin Degludec [Tresiba Flextouch U-200] 10 units SQ DAILY #15 ml 04/07/22 Rivaroxaban [Xarelto] 10 mg PO DAILY #21 tab 04/07/22 carvediloL [Coreg*] 3.125 mg PO BID 6AM 6PM tab 04/07/22 New Medications: Insulin Degludec [Tresiba Flextouch U-200] 10 units SQ DAILY #15 ml Rivaroxaban [Xarelto] 10 mg PO DAILY #21 tab Diet: ADA Activity: Fall precautions Followup: NONE,NONE [Primary Care Provider] - (Within 2 weeks.) Delbert Conn [ACTIVE - CAN ADMIT] - 1-2 Weeks (Right renal mass) Time spent managing pt's care (in minutes): 38
--- NOTE | 2022-04-07 17:42 | P.PN ---
Subjective Date of Service: 04/07/22 Chief Complaint: L hip fracture Subjective: No new changes Physical Examination - Vital Signs Temperature: 97.2 F Blood Pressure: 131/60 Pulse: 67 Respirations: 18 Pulse Ox (%): 96 - Physical Exam General: Other (appears as her stated age) HEENT: Atraumatic, Normocephalic Neck: Supple Respiratory: Other (symmetric chest expansion) Cardiovascular: No rubs, No murmurs Gastrointestinal: Soft and benign Musculoskeletal: No clubbing Integumentary: No warmth Neurological: Normal speech, Normal tone Urinary: Other (no bldder distention) External genitalia: Deferred Rectal: Deferred Assessment And Plan - Plan 1. Acute kidney injury secondary to cardiorenal. Improved. SCr improved to 1.2. [place] po fluid intake. Recheck renal panel on Sunday. 2. Hypertension, Controlled optimal. Continue current medication regimen. 3. Acute bronchitis. Improved. Continue current antibiotic. 4. Urinary tract infection, secondary to Klebsiella pneumonia. Continue current antibiotic. Will follow up with the primary. 5. Dispo. Transfer to rehab mir.
[2022-04-07 17:58] LABS: Appearance SLT. TURBID (CLEAR); Body Fluid Source PLEURAL; Color of fluid Yellow (COLORLESS)
[2022-04-07 17:59] LABS: Body Fluid WBC 185 /mm^3
[2022-04-11 13:10] LABS: ALBUMIN, PLEURAL FLUID 1.2 g/dL
[2022-04-12 19:57] LABS: LD, PLEURAL FLUID 78 U/L; TOTAL PROTEIN, PLEURAL FLUID <3.0 g/dL
== END 2022-04-07 17:52 | DRG 480 ==
LOC: ER 07:10 → ERHOLD 12:13 → 4TH 14:38 → 2ND 04-01 17:01
PROVIDERS: ADMIT Hospitalist; ATTEND Internal Medicine
PROC: 0QS734Z Reposition Left Upper Femur with Internal Fixation Device, Percutaneous Approach (ICD-10-PCS; principal; 2022-04-01 07:30)
PROC: 0W9B3ZZ Drainage of Left Pleural Cavity, Percutaneous Approach (ICD-10-PCS; 2022-04-06)
DX: S72.012A Unspecified intracapsular fracture of left femur, initial encounter for closed fracture (principal); I50.33 Acute on chronic diastolic (congestive) heart failure; J96.01 Acute respiratory failure with hypoxia; N39.0 Urinary tract infection, site not specified; N17.9 Acute kidney failure, unspecified; E87.3 Alkalosis; J44.0 Chronic obstructive pulmonary disease with (acute) lower respiratory infection; J20.9 Acute bronchitis, unspecified; I11.0 Hypertensive heart disease with heart failure; E78.5 Hyperlipidemia, unspecified; E11.40 Type 2 diabetes mellitus with diabetic neuropathy, unspecified; M25.552 Pain in left hip; M25.562 Pain in left knee; F17.210 Nicotine dependence, cigarettes, uncomplicated; B96.1 Klebsiella pneumoniae [K. pneumoniae] as the cause of diseases classified elsewhere; R94.5 Abnormal results of liver function studies; R55 Syncope and collapse; Z23 Encounter for immunization; Z79.4 Long term (current) use of insulin; Z90.49 Acquired absence of other specified parts of digestive tract; Z79.01 Long term (current) use of anticoagulants; Z79.899 Other long term (current) drug therapy; Z20.822 Contact with and (suspected) exposure to COVID-19; W18.39XA Other fall on same level, initial encounter; Y93.89 Activity, other specified; Y92.9 Unspecified place or not applicable
CPT/HCPCS: 32555; 36415; 71045; 72170; 74178; 76705; 76770; 80053; 80069; 80074; 81001; 82042; 82105; 82550; 82607; 82652; 82728; 82746; 82805; 82945; 82947; 82977; 83540; 83615; 83690; 83735; 83970; 84100; 84157; 84165; 84443; 84466; 84484; 84550; 85025; 85027; 85044; 85610; 86255; 87040; 87077; 87086; 87088; 87186; 87811; 89050; 93306; 94760; 96374; 96375; 97110; 97116; 97161; 97165; 97530; 99285; J0690; J1100; J1815; J1940; J2001; J2270; J2370; J2405; J2704; J3010; J3475; J7030; Q9967

== ENCOUNTER 2022-04-07 14:28 | Inpatient (IN) | payer OTHER ==
[2022-04-07] MEDS ORDERED: GLUCAGON 1 MG/VIAL IM PRN (19:40)
[2022-04-07] MEDS ORDERED: D50W 25 GM/50 ML SYRINGE IV PRN (19:40)
[2022-04-07] MEDS ORDERED: D10W 125 ML IV PRN (19:45)
[2022-04-07] MEDS ORDERED: PNEUMOCOCCAL VACCINE 0.5 ML IMVAC ONE (20:00)
[2022-04-07] MEDS: INSULIN -REGULAR HUMAN 50 UNIT/0.5 ML ML SQ SCH (21:00)
[2022-04-07] MEDS: ATORVASTATIN 10 MG TAB PO SCH (22:20)
[2022-04-07 23:49] LABS: Specific Gravity 1.013 (1.005-1.030); Urine Bacteria <20 /HPF (<20); Urine Bilirubin NEGATIVE (Negative); Urine Blood Negative (Negative); Urine Clarity Clear (Clear); Urine Color Light-Yellow (Yellow); Urine Glucose NEGATIVE (Negative); Urine Granular Casts 0-5 /LPF (None Seen); Urine Mucus Slight /HPF (None Seen); Urine Protein NEGATIVE (Negative); Urine RBC <5 /HPF (None Seen); Urine Urobilinogen Normal (Normal)
[2022-04-08] MEDS: carvediloL 3.125 MG TAB PO SCH ×2 (05:25→17:09)
[2022-04-08 05:26] VITALS: BMI 26.6
[2022-04-08 05:59] LABS: Absolute Lymphocytes (CBC) 0.6 K/uL (0.7-4.9); Hematocrit 33.7 % (36.0-45.0); Lymphocytes % 13.8 % (15.3-44.8); MCV 87.2 fL (80-100); RBC Red Blood Cell Count 3.87 M/uL (3.86-4.86)
[2022-04-08 06:13] LABS: Albumin 2.2 g/dL (3.4-5.0); Magnesium 2.2 mg/dL (1.8-2.4); Potassium 4.4 mmol/L (3.5-5.1); Prealbumin 10.1 mg/dL (20-40)
[2022-04-08] MEDS ORDERED: ACETAMINOPHEN 325 MG TABLET PO PRN (07:02)
[2022-04-08] MEDS ORDERED: DOCUSATE NA/SENNA CONC 1 TAB PO PRN (07:04)
[2022-04-08] MEDS: INSULIN -REGULAR HUMAN 50 UNIT/0.5 ML ML SQ SCH ×4 (07:30→20:24)
[2022-04-08] MEDS ORDERED: ramipriL 5 MG CAP PO SCH (08:00)
[2022-04-08] MEDS: METOPROLOL TAR 50 MG TAB PO SCH (08:00)
[2022-04-08] MEDS: HYDRALAZINE HCL 25 MG TABLET PO SCH (08:00)
[2022-04-08] MEDS: RIVAROXABAN 10 MG TABLET PO SCH (08:30)
[2022-04-08] MEDS: ramipriL 5 MG CAP PO SCH (08:30)
[2022-04-08] MEDS: FUROSEMIDE 40 MG TABLET PO SCH (08:31)
[2022-04-08] MEDS: FOLIC ACID 1 MG TABLET PO SCH (08:31)
[2022-04-08] MEDS: AMLODIPINE 10 MG TAB PO SCH (08:31)
--- NOTE | 2022-04-08 11:39 | HP ---
Date of Admission: 04/07/2022 Chief Complaint: "I broke my left hip." History Of Present Illness: Ms. Rashid is an 81-year-old, right-handed, patient with hyp ertension, diabetes mellitus, dyslipidemia, who was walking to get the newspaper at home on the , when she bent forward, felt lightheaded, stood up and passed out. She fell on concrete. Her husban d said she had slippers on and she impacted the left side and immediately had pain and she became tato re her surroundings. She came to [facility] and was evaluated in the emergency room where a pelvic and hip x-ray on the left where she had her pain revealed a subcapital fracture of the proxim al left femur with minimal valgus angulation and no displacement. She was further evaluated for trau ma in other areas including the rest of her left lower extremity, right and left upper extremity, and right lower extremity with no injuries identified. She has reported a bump on the back of her head, there is a small area of swelling, but no fracture. There is no external bleeding. Dr. Justin mg the orthopedic service evaluated the patient and determined that she would be a candidate for surge ry and on the , he performed close reduction and in situ hip screw fixation of the left hip fract ure. She had no complications during the procedure and she was put at a touchdown weightbearing stat us once the procedure was done. She had gregory placed and Aquacel was also placed over the surgical wound. Prior to the patient's fall, she was fully independent with ambulation, activities of daily living, c limbing steps, and no restrictions. Since her surgery, she requires maximum assistance for transfers , performing lower and upper body dressing, and for ambulating short distances. Due to the patient's current state, it is determined that she is an appropriate candidate for inpatient rehabilitation, g homer her significant limitations immediately after surgery and her age and her need for pain control as well. She has also not had a bowel movement in about a week leading up to the fall. Past Medical History: As noted above with insulin-dependent diabetes mellitus, hypertension. Family History: Noncontributory. Allergies: NO KNOWN DRUG ALLERGIES. Medications: Amlodipine 10 mg daily, Lipitor 10 mg daily, folic acid 1 mg daily, Lasix 40 mg daily, hydralazine 25 mg daily, insulin Tresiba Flextouch 45 units daily, metoprolol 50 mg daily, Altace 10 mg daily. Social History: She smokes cigarettes daily and uses alcohol. She lives at home with her . Review of Systems: Currently, she has no fevers or chills. She has some arthralgias and myalgias, but mild pain in the left surgical site. Otherwise, no psychiatric issues, no cognitive issues, no dermatological issues, no pulmonary issues, no genitourinary issues. She did say she has had a long history of very freque nt bowel movements. It is unclear what the diagnosis is related to that, but she has seen many GI do ctors and has had to "carry a bag with her when she goes to everywhere because she would have urgent need to go and is unable to hold it." Otherwise, no other positives on a 10 point systems review. Physical Examination: Vital Signs: Blood pressure 145/66, pulse 63, respiratory rate 18, temperature 97, oxygen saturation 91%. General: Ms. Rashid is lying in a bed. Her is at bedside. HEENT: She is normocephalic except for a mild small swelling in the back of her head on the right. It is slightly tender to the touch. Otherwise, atraumatic. Sclerae anicteric. Oropharynx is moist and pink. Neck: Supple. Chest: Clear. Heart: Regular. Extremities: Show no clubbing, cyanosis, or edema. She has trace edema in the left lower extremity. Neurologic: In terms of her cranial nerve, no focal deficits there. Motor exam, some giveaway in th e left lower extremity, otherwise 5/5 and it is at least 4/5 proximally, distally in the left lower e xtremity. Sensation is in stocking-glove loss of arms and legs. Reflexes: Depressed 1+ in upper an d lower extremities. Coordination intact in upper and lower extremities. In terms of gait, she was able to ambulate with a rolling walker. She had about 50 feet, but moderate assistance. Laboratory Studies: White blood cell count 4.5, hemoglobin 11, hematocrit 33.7, platelets 184. INR 1.02. Chemistry: Sodium 143, potassium 4.4, chloride 105, carbon dioxide 36, BUN 36, creatinine 1.2 3, glucose ranged from 153 to 176, calcium 8.6. Magnesium 2.2. Albumin 2.2, prealbumin 10.1. Urina lysis shows a trace of ketones, otherwise negative. Originally on the , her urinalysis was posit singh for urinary tract infection. However, that is 5 days ago and now it is not. Her antimitochondri al antibody testing from the is elevated to 27.5 with negative being less than 20 and COVID-19 t est is negative. Hepatitis screen that is hepatitis A, B, and C screen was negative. X-ray Imaging: Chest x-ray on the identified left pleural effusion mildly diminished in size, s mall to moderate; bibasilar atelectasis with clear upper lobes; heart is mildly enlarged. Her abdome n and pelvis CT scan from the shows solid enhancing right renal mass concerning for renal cell c arcinoma. Lesion measures just under 8 cm. There is distention of the right lower pole at the level vein suggesting tumor thrombosis. The renal vein and inferior vena cava, however, are normal in jose iber, not involved. There is a hypervascular nodule in the right posterior space favored to represent a varix rather than tumor implant. No retroperitoneal lymphadenopathy and this was disc ussed with Dr. Temple and Dr. John per the radiologist's note. Review of systems is as noted above. Physical examination is as noted above. Current Level Of Functioning: Currently, she is able to ambulate with a front wheeled walker with to uchdown weightbearing status and oxygen being required. With contact guard assistance covered a tota l of 185 feet. Oxygen 2 L of nasal cannula was at 91%. Heart rate of 70. She has required mild ass istance with her transfers from bed to wheelchair to commode as well as with upper and lower body lindsey ssing. Medical Assessment And Plan: Ms. Rashid is an 81-year-old patient with hypertension, diabetes mary itus, and a renal mass suspicious for renal cell carcinoma, which will be further evaluated as she fi nishes her rehabilitation and she has left hip fracture. Specifically, x-ray identified a slightly i mpacted nondisplaced left femoral neck fracture and on the , she received a surgical treatment wi th a superior pin placement x2 and third screw placement by Dr. Anderson. She has gregory. Her mason abilitation impairment group 07 orthopedic left hip fracture and the etiologic diagnosis 12.29, statu s post unilateral hip fracture. Active comorbid conditions: Possible kidney cancer being further evaluated by mass involvi ng kidney, acute renal insufficiency, chronic obstructive pulmonary disease, hypertension, diabetes m ellitus, syncope, coronary artery disease, untreated urinary tract infection. In addition to elevate d liver function studies, risks of clinical complication include infection with sepsis, pneumonia, ki dney failure, deep vein thrombosis, skin breakdown with decubital ulcers, hypothermia, anxiety, stres s, polyneuropathy, gastroparesis, and excessive stools from previous uncontrolled diabetes for healin g, stroke, myocardial infarction, and infectious encephalopathy. Active comorbid conditions present on admission: Diabetes mellitus, hypertension, renal insufficienc y, elevated liver function studies, renal mass, COPD, and her left hip surgical wound. For each cond ition, her diabetes is managed by sliding scale and continue insulin. Hypertension by adjusting medi cations. Her blood pressure is appropriate and as listed above deep vein thrombosis risk. She is re ceiving Xarelto 10 mg daily. For blood pressure, she is on Lopressor and Altace. For stool issues, on Senokot. For insomnia, melatonin. Dyslipidemia, treated with Lipitor. Pain managed by Tylenol. Impacted comorbid conditions: Given the risk of uncontrolled blood sugars that could impact her heal ing and that will be addressed aggressively. Risk of hypertension, worsening can lead to stoke and m yocardial infarction . Risk of deep vein thrombosis, which can cause clots to go to the david ngs. It will be addressed aggressively as noted above. Rehab plan: She will have physical and occupational therapy for a total of 3 hours a day 5-7 days to improve her ability to perform her activities of daily living for transfers, upper and lower body dr bender, for managing her pain, for her ambulation with a walker, household distances of a minimum 50 feet; and mobilizing a wheelchair around 250 feet and again addressing aggressively all of her comorb id conditions. The patient has 2 daughters and her with good understanding of her admission, treatment and discharge process and will benefit from the interdisciplinary approach, which the cristofer ent now will have with the daily physician evaluation at least 5 days a week. She does have signific ant potential to improve and is in need of at least 2 , which is physical and occupational therapy and she does require management of her surgical wound and her comorbid conditions. She does have malnutrition given her low pre-albumin and albumin and slightly low hemoglobin and hematocrit th at will be addressed with nutritional services as well as protein and iron supplementation. Patient has risk of depression that will be evaluated and addressed appropriately. Given her complex conditi on and risk of further complications, rehabilitation services cannot effectively perform the lower le jelani, such as group home home. Therefore, she is adequate candidate for inpatient rehabilitation . Barriers To Discharge: There could be potential for clot formation of the lower extremities and are being addressed and there is also a mass in the renal area, which will be addressed outpatient, but a t this time, it is stable. Her hypertension may be an issue, but again that is stable. Estimated Length Of Stay: Around 14 days. Disposition: Expected to be going home. Prognosis: Good and rehabilitation goals is to become independent with her performance of activities of daily living, proper lower body dressing, pathology per bathing for donning and doffing her lower footwear for ambulating a minimum of 250 feet with modified independence. Being able to walk up and down a curb with modified independence, in and out of the about dependence and after pain level greg gement 3 or less to have her other comorbid CV stable. Pathology: I personally performed a full physical examination on Ms. Rashid. She arrived on unit and determined that she is able to tolerate the above course of treatment at an intensive level for t he 3 hours daily 5-7 days. I had a detailed individualized plan at this care will be completed by ebony ramirez 4 of her hospital stay based on her pre-admission screen, her history and physical, and therapeutic evaluation. ALPA/JULIO Voice ID: [id number]
[2022-04-08] MEDS: ATORVASTATIN 10 MG TAB PO SCH (20:24)
[2022-04-08] MEDS ORDERED: MELATONIN 3 MG TABLET PO PRN (21:00)
[2022-04-09] MEDS: carvediloL 3.125 MG TAB PO SCH ×2 (05:00→17:21)
[2022-04-09] MEDS: INSULIN -REGULAR HUMAN 50 UNIT/0.5 ML ML SQ SCH ×4 (07:30→19:39)
[2022-04-09] MEDS: METOPROLOL TAR 50 MG TAB PO SCH (08:00)
[2022-04-09] MEDS: AMLODIPINE 10 MG TAB PO SCH (08:00)
[2022-04-09] MEDS: RIVAROXABAN 10 MG TABLET PO SCH (08:27)
[2022-04-09] MEDS: LACTOBACILLUS/ACIDOPHILUS TAB PO SCH (08:28)
[2022-04-09] MEDS: FUROSEMIDE 40 MG TABLET PO SCH (08:28)
[2022-04-09] MEDS: FOLIC ACID 1 MG TABLET PO SCH (08:28)
[2022-04-09] MEDS: ramipriL 5 MG CAP PO SCH (09:38)
[2022-04-09] MEDS: HYDRALAZINE HCL 25 MG TABLET PO SCH (12:34)
[2022-04-09] MEDS ORDERED: TRESIBA U SQ SCH (14:00)
--- NOTE | 2022-04-09 17:19 | P.PN ---
Subjective Date of Service: 04/09/22 Today no overnight events Cr stable Cont PT/OT Physical exam General: AAOx3, NAD, HEENT PERRLA, moist mucose membrane neck: supple, no elevated JVD CHEST; CTAB, no wheezes or rales HEART : RRR. Normal S1,2 no murmur or rub Abd: soft, Nt Ext: no edema Skin : No rash 1. Acute kidney injury secondary to cardiorenal. Improved. SCr improved to 1.2. [place] po fluid intake. 2. Hypertension, Controlled optimal. Continue current medication regimen. 3. Acute bronchitis. Improved. Continue current antibiotic. 4. Urinary tract infection, secondary to Klebsiella pneumonia. Continue current antibiotic. Will follow up with the primary.. 5.Renal Mass; W/U as an OP 6< Hip fracture : S/P ORIF , PT/OT Physical Examination - Vital Signs Temperature: 97.8 F Blood Pressure: 134/60 Pulse: 61 Respirations: 18 Pulse Ox (%): 88 - Studies Microbiology Data (last 24 hrs): 04/07/22 23:00 Clean Catch Urine Herald Count - Final <10,000 CFU/ML. 04/07/22 23:00 Clean Catch Urine - Final MIXED CHRISTIAN.
[2022-04-09] MEDS: AMLODIPINE 5 MG TAB PO SCH (19:34)
[2022-04-09] MEDS: ATORVASTATIN 10 MG TAB PO SCH (19:34)
[2022-04-10] MEDS: carvediloL 3.125 MG TAB PO SCH ×2 (05:35→17:22)
[2022-04-10 06:22] LABS: Potassium 4.2 mmol/L (3.5-5.1)
[2022-04-10] MEDS: INSULIN -REGULAR HUMAN 50 UNIT/0.5 ML ML SQ SCH ×4 (07:30→20:00)
[2022-04-10] MEDS ORDERED: INSULIN DEGLUDEC SQ SCH (08:00)
[2022-04-10] MEDS: AMLODIPINE 5 MG TAB PO SCH ×2 (08:00→20:00)
[2022-04-10] MEDS: FOLIC ACID 1 MG TABLET PO SCH (08:30)
[2022-04-10] MEDS: RIVAROXABAN 10 MG TABLET PO SCH (08:30)
[2022-04-10] MEDS: LACTOBACILLUS/ACIDOPHILUS TAB PO SCH (08:30)
[2022-04-10] MEDS: FUROSEMIDE 40 MG TABLET PO SCH (08:30)
[2022-04-10] MEDS: HYDRALAZINE HCL 25 MG TABLET PO SCH (08:36)
[2022-04-10] MEDS: ramipriL 5 MG CAP PO SCH (12:19)
--- NOTE | 2022-04-10 14:36 | PN ---
Date of Progress Note: 04/10/2022 Time Of Visit: 8:30 in the morning. Subjective: Ms. Rashid is doing better. She actually has no pain despite her left hip fracture. She does use Tylenol. She is sitting in bed, eating breakfast and is smiling and happy, had a good n ight's rest and is ready to begin therapy today. Review of Systems: She denies any fevers, chills, nausea, vomiting, myalgias, arthralgias aside from the left hip surgic al site, which is mild. No rash, headache. No psychiatric issues. No gastrointestinal or genitouri nary issues. No other positives on a 10-point systems review. Physical Examination: Vital Signs: Blood pressure 145/64, pulse 65, respiratory rate 18, temperature 97.4, oxygen saturati on 97%. General: Ms. Rashid is sitting in bed, eating breakfast. HEENT: She is normocephalic, atraumatic. Sclerae anicteric. Oropharynx is pink and moist. Neck: Supple. Chest: Clear. Heart: Regular. Extremities: Trace edema left lower extremity. Otherwise, no clubbing, cyanosis. No wea kness due to pain in the left lower extremity. No weakness noted in the right or her left upper extr emity. Laboratory Studies: White blood cell count 4.5, hemoglobin 11, hematocrit 37.7. Sodium 141, potassi um 4.3, chloride 103, carbon dioxide 33, BUN 35, creatinine 1.21, glucose ranged from 163-291, calciu m 8.5. X-ray/Imaging: None. Current Functional Status: Currently, her bed mobility from supine to sit is done with standby essence tance. Transfers at followup with standby assistance. She did multiple sit to stand transfers with contact guard assistance as well. She also ambulated 310 feet with a front wheel walker with standby assistance, requiring occasional cues to maintain touchdown weightbearing status on the left lower e xtremity. She negotiated 3 steps with moderate assistance due to the cuing to place her left foot pr operly. Progress toward rehabilitation goals: She is making excellent progress towards becoming independent with physical and occupational therapy with upper and lower body dressing with transfers and tolerati ng, showering as well. Assessment: 1.Ms. Rashid is an 81-year-old patient with hip fracture status post surgical repair who is making great progress with her physical and occupational therapy. She has no need for speech therapy as sh e is doing very well with that respect. Regarding her comorbid for diabetes mellitus, her blood suga rs have been somewhat elevated. Adjustments will be made to her medications for hyperglycemia. She is actually on Tresiba FlexTouch and a glucose sliding scale. The Tresiba FlexTouch is 20 units subc utaneously daily and will be continued. 2.Hypertension, addressed with Lasix 40 mg daily, Coreg 3.125 mg twice daily. 3.Her pain addressed with Tylenol and Syms[place] if need be, as well as muscle relaxant. 4.Her constipation addressed with Senokot-S 2 at night. 5.For blood pressure apresoline. 6.For stroke risk reduction and DVT risk reduction, Xarelto 10 mg daily along with folic acid 1 mg d aily. 7.For insomnia, melatonin 3 mg at night. Comorbidities that continue to impact rehabilitation progress: At this point, her blood sugars have been elevated and will be addressed with the sliding scale and her FlexTouch should be continued. Bl ood pressures will be addressed as noted. She does have a risk of deep vein thrombosis she has mild anemia and malnutrition and those issues are addressed with p rotein and iron supplementation. ALPA/JULIO Voice ID: [id number] Report ID: [id number]
[2022-04-10] MEDS: ATORVASTATIN 10 MG TAB PO SCH (20:00)
--- NOTE | 2022-04-11 00:33 | PN ---
Date of Progress Note: 04/10/2022 Chief Complaint: Chronic kidney disease, acute kidney injury, and hypertension. Subjective: Patient has multiple medical problems. Recently, she was admitted to the hospital for a cute kidney injury. She was evaluated in the emergency room and she had a pelvic and hip x-ray done. She was complaining of pain and was found to have a fracture of proximal left femur. She underwent closed reduction and in situ hip screw fixation of the left hip. Currently she is undergoing physic al therapy and is admitted to rehab floor. Review of Systems: Denies fever or chills. Physical Examination: Lungs: Clear to auscultation bilaterally. Heart: S1, S2. Abdomen: Soft. Extremities: No edema. Laboratory Data: Sodium 143, potassium 4.4, carbon dioxide 36, BUN 36, and creatinine 1.23. Impression And Plan: 1.Chronic kidney disease stage 3 on acute kidney injury. Renal function has improved to baseline. Avoid nephrotoxic medication. Monitor blood pressure. 2.Cardiorenal syndrome. Overall volemia is well controlled. 3.Urinary tract infection secondary to klebsiella. Patient was started on antibiotics. Reevaluate urine culture. 4.Acute bronchitis. The patient completed antibiotics. DYLAN/MODStone Voice ID: [id number] Report ID: [id number]
[2022-04-11] MEDS: carvediloL 3.125 MG TAB PO SCH ×2 (05:14→17:21)
[2022-04-11] MEDS: INSULIN -REGULAR HUMAN 50 UNIT/0.5 ML ML SQ SCH ×4 (07:18→22:50)
[2022-04-11] MEDS ORDERED: INSULIN DEGLUDEC SQ SCH (08:00)
[2022-04-11] MEDS: RIVAROXABAN 10 MG TABLET PO SCH (08:27)
[2022-04-11] MEDS: FUROSEMIDE 40 MG TABLET PO SCH (08:27)
[2022-04-11] MEDS: FOLIC ACID 1 MG TABLET PO SCH (08:27)
[2022-04-11] MEDS: LACTOBACILLUS/ACIDOPHILUS TAB PO SCH (08:27)
[2022-04-11] MEDS: HYDRALAZINE HCL 25 MG TABLET PO SCH (08:28)
[2022-04-11] MEDS: AMLODIPINE 5 MG TAB PO SCH ×2 (11:47→20:47)
[2022-04-11] MEDS: ramipriL 5 MG CAP PO SCH (14:03)
--- NOTE | 2022-04-11 18:54 | PN ---
Date of Progress Note: 04/11/2022 Nobg-vj-xicy progress visit. Time Of Visit: 12 noon. Subjective: Ms. Rashid is actually doing very well with therapy. She actually reports no pain malinda pite her hip fracture. She is able to participate at all therapy and has no complaints. She is slee ping well, eating well. No issues with bowel and bladder function. Review of Systems: She has no fevers or chills. No nausea or vomiting. Mild myalgias at the left hip area and some art hralgias there. Otherwise, none of the joints are posing any significant issues. No dermatological issues. No genitourinary or gastrointestinal issues. No pulmonary issues. No cardiovascular issues . No psychiatric issues. Physical Examination: Vital Signs: Blood pressure 123/57, pulse 87, respiratory rate 16, temperature 97.5, oxygen saturati on 95% on 1 L oxygen via nasal cannula. Extremities: Her left hip surgical site has good hemostasis. No drainage. No significant edema in the left lower extremity. Otherwise, her examination is unremarkable and unchanged. Laboratory Studies: No new laboratory studies. Last white blood cell count was 4.5 and hemoglobin 1 1.0 on the . Blood glucose had improved control from the high 200s to the 110-154 after her Flex Touch insulin dosage was increased to 26 units in the morning. X-ray/Imaging: None. Medications: Tylenol 650 mg every 6 hours as needed, Norvasc 5 mg twice daily, Lipitor 10 mg at bedt nicki, Coreg 3.125 mg twice daily, folic acid 1 mg daily, Lasix 40 mg daily, FlexTouch insulin 26 units daily, apresoline 25 mg daily, sliding scale insulin, NovoLog, Lactinex 1 tablet daily, melatonin 3 mg at bedtime, ramipril 10 mg daily, Xarelto 10 mg daily, and Senokot-S 2 tablets at bedtime. Current Functional Status: Currently she is ambulating with a rolling walker on level surface over 1 00 feet with minimal assistance and verbal cues. She did perform standing on the lower extremities x 25 repetitions, marching in place, did flex the hip, and did hip abduction and adduction. She did mu ltiple dqi-hd-[id number] transfers with standby assistance and performed xfw-rj-cxyong with contact guard assistance. Progress towards rehabilitation goals: She is making excellent progress towards her rehabilitation g oals and is expected to be discharged sooner than the typical 12 or 13 days for hip fracture. Assessment: Ms. Rashid is an 81-year-old patient with left hip fracture who was doing very well wi th her physical and occupational therapy. She is making great progress. She has comorbid diabetes m ellitus, which had some elevated blood sugars. Her insulin dosage was adjusted and those are improvi ng. She has hypertension. She is on multiple antihypertensive medication including Lasix, Apresolin e, Norvasc, and Altace. She has dyslipidemia and she is on Lipitor. For her pain, she is on just Ty lenol and that has been adequate. For constipation, she is on Senokot-S. For deep vein thrombosis r isk reduction, she is on Xarelto 10 mg daily. Comorbidities that continue to impact rehabilitation process: She does have poorly controlled blood sugars, which are improving as insulin dosage was adjusted. Her blood pressure medications are curre ntly holding at the same level as blood pressures, although they do fluctuate essentially without phy sical activity around 130s and may range up to systolic of 140s. LB/MODL Voice ID: [id number] Report ID: [id number]
[2022-04-11] MEDS: ATORVASTATIN 10 MG TAB PO SCH (20:47)
[2022-04-12] MEDS: carvediloL 3.125 MG TAB PO SCH ×2 (05:14→16:51)
[2022-04-12 05:43] LABS: Potassium 4.2 mmol/L (3.5-5.1)
[2022-04-12] MEDS: INSULIN -REGULAR HUMAN 50 UNIT/0.5 ML ML SQ SCH ×4 (07:20→20:05)
[2022-04-12] MEDS: RIVAROXABAN 10 MG TABLET PO SCH (07:35)
[2022-04-12] MEDS: FOLIC ACID 1 MG TABLET PO SCH (07:35)
[2022-04-12] MEDS: LACTOBACILLUS/ACIDOPHILUS TAB PO SCH (07:35)
[2022-04-12] MEDS: AMLODIPINE 5 MG TAB PO SCH ×2 (07:35→19:46)
[2022-04-12] MEDS: FUROSEMIDE 40 MG TABLET PO SCH (07:35)
[2022-04-12] MEDS: HYDRALAZINE HCL 25 MG TABLET PO SCH (08:00)
[2022-04-12] MEDS: INSULIN DEGLUDEC SQ SCH (08:31)
[2022-04-12] MEDS: ramipriL 5 MG CAP PO SCH (12:00)
--- NOTE | 2022-04-12 14:49 | P.PN ---
Subjective Date of Service: 04/12/22 Subjective: No new changes Physical Examination - Vital Signs Temperature: 97.6 F Blood Pressure: 101/49 Pulse: 53 Respirations: 18 Pulse Ox (%): 97 - Physical Exam General: In no apparent distress HEENT: Atraumatic, Normocephalic Neck: Supple Respiratory: Clear to auscultation bilaterally Cardiovascular: No rubs, No murmurs Gastrointestinal: Soft and benign, No guarding Musculoskeletal: No clubbing Integumentary: No warmth Neurological: Normal speech, Normal tone Urinary: Other (No bladder distention) External genitalia: Deferred Rectal: Deferred - Studies Laboratory Data (last 24 hrs) 04/12/22 04:04: Sodium 142, Potassium 4.2, BUN 38 H, Creatinine 1.49 H, Glucose 165 H Assessment And Plan - Plan 1. Acute kidney injury secondary to cardiorenal. Improved. SCr improved to 1.2, now uptrending to 1.5, likely 2/2 prerenal state. Encourage po fluid intake at least 2L/d. 2. Hypertension. Continue current medication regimen. 3. Acute bronchitis. Improved. Received antibiotic. 4. Urinary tract infection, secondary to Klebsiella pneumonia. Received antibiotic. 5. Renal Mass; W/U as an OP 6. Hip fracture : S/P ORIF , PT/OT 7. Dispo. Dc plan to home this Saturday 04/14.
[2022-04-12] MEDS: ATORVASTATIN 10 MG TAB PO SCH (19:47)
[2022-04-13] MEDS: carvediloL 3.125 MG TAB PO SCH ×2 (05:05→17:03)
[2022-04-13 06:09] LABS: Absolute Lymphocytes (CBC) 0.7 K/uL (0.7-4.9); Hematocrit 32.7 % (36.0-45.0); Lymphocytes % 11.9 % (15.3-44.8); MCV 86.7 fL (80-100); MPV 9.5 fL (7.6-11.3); RBC Red Blood Cell Count 3.77 M/uL (3.86-4.86)
[2022-04-13 06:30] LABS: Albumin 2.1 g/dL (3.4-5.0); Magnesium 2.2 mg/dL (1.8-2.4); Potassium 3.8 mmol/L (3.5-5.1); Prealbumin 9.8 mg/dL (20-40)
[2022-04-13] MEDS: INSULIN -REGULAR HUMAN 50 UNIT/0.5 ML ML SQ SCH ×4 (07:30→20:31)
[2022-04-13] MEDS: FUROSEMIDE 40 MG TABLET PO SCH (07:55)
[2022-04-13] MEDS: FOLIC ACID 1 MG TABLET PO SCH (07:56)
[2022-04-13] MEDS: RIVAROXABAN 10 MG TABLET PO SCH (07:56)
[2022-04-13] MEDS: LACTOBACILLUS/ACIDOPHILUS TAB PO SCH (07:56)
[2022-04-13] MEDS: AMLODIPINE 5 MG TAB PO SCH ×2 (07:57→19:45)
[2022-04-13] MEDS: HYDRALAZINE HCL 25 MG TABLET PO SCH ×2 (08:00→17:08)
[2022-04-13] MEDS: AMINO ACIDS/PROTEIN HYDROLYS 30 ML LIQUID.PKT PO SCH ×2 (08:00→19:46)
[2022-04-13] MEDS: INSULIN DEGLUDEC SQ SCH (08:07)
[2022-04-13] MEDS: ramipriL 5 MG CAP PO SCH ×2 (12:00→13:00)
--- NOTE | 2022-04-13 16:21 | PN ---
Date of Progress Note: 04/13/2022 Time Of Visit: 11:30 a.m. Subjective: Ms. Rashid is resting comfortably in bed. She denies any pain despite her left hip thomas rgical area. She has no new complaints. Review of Systems: No fevers, chills. No nausea. No significant myalgias. She has mild pain in the left hip. No millie tourinary, gastrointestinal, pulmonary, psychiatric issues. Physical Examination: Vital Signs: Blood pressure 131/60, pulse 55, respiratory rate 18, temperature 98.0, oxygen saturati on 97%. General: Gay Jones is resting comfortably. HEENT: She is normocephalic, atraumatic. Sclerae anicteric. Oropharynx is moist. Neck: Supple. Chest: Clear. Heart: Regular. Extremities: Show no significant edema cyanosis, perhaps trace in the left lower extremity, otherwis e intact. Laboratory Studies: White blood cell count 6.1, hemoglobin 10.8, hematocrit 30.7, platelets are 223. Chemistry: Sodium 141, potassium 3.8, chloride 103, carbon dioxide 34, BUN 34, creatinine 1.46, gl ucose ranged from 99 to 168. Prealbumin 9.8, albumin 2.1. X-ray imaging: No new x-rays imaging. Medications: Acetaminophen 650 mg every 4 hours, high protein supplementation 30 mL twice daily, Nor vasc 5 mg twice daily, Lipitor 10 mg at bedtime, Coreg 3.125 mg twice daily, folic acid 1 mg daily, L asix 40 mg daily, Apresoline 25 mg daily, Lactinex 1 tablet daily, melatonin 3 mg at bedtime, Altace 10 mg daily, Xarelto 10 mg daily, Senokot-S 2 tabs at bedtime. Current Functional Status: Currently, she did bed mobility with men-cg-dldmz transfers and rolling w alker with supervision. Shower transfer done independently. Room to shower ambulated independent wi th a rolling walker on room air. Oral hygiene, upper and lower body dressing done independently. Ox ygen saturation remained at 90%. Oxygen saturation did drop to 87% when ambulating to the shower and back, did increase to 94% after 3 minutes of deep breathing. She ambulated 300 feet with a wheelcha ir independently and another 325 feet with standby assistance. Progress Towards Rehabilitation Goals: She is making excellent progress to be able to return to inde pendent in terms of her upper and lower body dressing, transfers, toileting, showering, ambulation of over 250 feet independently and she is making great progress. Assessment And Plan: Ms. Rashid is an 81-year-old patient admitted to the rehabilitation unit with left hip fracture, status post surgical repair. She is making great progress with physical and occu pational therapy. She has diabetes mellitus, which has been improved in management after insulin was adjusted. Hypertension is improving with management including Lasix, Apresoline, Norvasc, Altace. Dyslipidemia. She is on Lipitor. Her pain is managed by Tylenol. Constipation. She is on Senokot. Deep vein thrombosis risk reduction is Xarelto 10 mg daily. Comorbidities that continue to impact rehabilitation process: Her diabetes mellitus, which was not a s well-controlled, has now has improved control. Blood pressures does have some improved control as well. Pain is not an issue. Site infection is not an issue as there was good hemostasis of the surg ical site. No other barriers to her rehabilitation process. ALPA/MODL Voice ID: [id number] Report ID: [id number]
[2022-04-13 18:17] VITALS: O2SAT 91
[2022-04-13] MEDS: ATORVASTATIN 10 MG TAB PO SCH (19:46)
[2022-04-14] MEDS: carvediloL 3.125 MG TAB PO SCH (05:36)
[2022-04-14 07:10] VITALS: TEMP 97.2
[2022-04-14] MEDS: INSULIN -REGULAR HUMAN 50 UNIT/0.5 ML ML SQ SCH ×2 (07:30→11:30)
[2022-04-14] MEDS: AMINO ACIDS/PROTEIN HYDROLYS 30 ML LIQUID.PKT PO SCH (08:00)
[2022-04-14] MEDS: HYDRALAZINE HCL 25 MG TABLET PO SCH (08:00)
[2022-04-14] MEDS: INSULIN DEGLUDEC SQ SCH (08:00)
[2022-04-14] MEDS: LACTOBACILLUS/ACIDOPHILUS TAB PO SCH (08:19)
[2022-04-14] MEDS: FOLIC ACID 1 MG TABLET PO SCH (08:19)
[2022-04-14] MEDS: RIVAROXABAN 10 MG TABLET PO SCH (08:20)
[2022-04-14] MEDS: FUROSEMIDE 40 MG TABLET PO SCH (08:20)
[2022-04-14] MEDS: AMLODIPINE 5 MG TAB PO SCH (08:21)
--- NOTE | 2022-04-14 08:51 | P.RH.PN ---
Estimated Length of Stay: 7 Expected Discharge Date: 04/14/22 Discharge Disposition Plan: Home Family Support: Yes [employer] Goal: Mobility, Transfers, Self Care Vital Signs: Last Vital Signs Temp 97.2 F 04/14/22 07:09 Pulse 58 04/14/22 08:21 Resp 18 04/14/22 07:09 BP 121/58 L 04/14/22 08:21 Pulse Ox 85 L 04/14/22 07:09 Laboratory: Laboratory Last Values WBC 6.10 K/uL (4.3-10.9) 04/13/22 05:04 RBC 3.77 M/uL (3.86-4.86) L 04/13/22 05:04 Hgb 10.8 g/dL (12.0-15.0) L 04/13/22 05:04 Hct 32.7 % (36.0-45.0) L 04/13/22 05:04 MCV 86.7 fL (80-100) 04/13/22 05:04 MCH 28.5 pg (27.0-35.0) 04/13/22 05:04 MCHC 32.9 g/dL (32.0-36.0) 04/13/22 05:04 RDW 14.6 % (12.1-15.2) 04/13/22 05:04 Plt Count 223 K/uL (152-406) 04/13/22 05:04 MPV 9.5 fL (7.6-11.3) 04/13/22 05:04 Neutrophils % 70.9 % (41.7-73.7) 04/13/22 05:04 Lymphocytes % 11.9 % (15.3-44.8) L 04/13/22 05:04 Monocytes % 9.3 % (3.3-12.3) 04/13/22 05:04 Eosinophils % 6.5 % (0-4.4) H 04/13/22 05:04 Basophils % 1.4 % (0-1.3) H 04/13/22 05:04 Absolute Neutrophils 4.3 K/uL (1.8-8.0) 04/13/22 05:04 Absolute Lymphocytes 0.7 K/uL (0.7-4.9) 04/13/22 05:04 Absolute Monocytes 0.6 K/uL (0.1-1.3) 04/13/22 05:04 Absolute Eosinophils 0.4 K/uL (0-0.5) 04/13/22 05:04 Absolute Basophils 0.1 K/uL (0-0.5) 04/13/22 05:04 Sodium 141 mmol/L (136-145) 04/13/22 05:04 Potassium 3.8 mmol/L (3.5-5.1) 04/13/22 05:04 Chloride 103 mmol/L (98-107) 04/13/22 05:04 Carbon Dioxide 34 mmol/L (21-32) H 04/13/22 05:04 Anion Gap 7.8 mEq/L (5.0-15.0) 04/13/22 05:04 BUN 34 mg/dL (7-18) H 04/13/22 05:04 Creatinine 1.46 mg/dL (0.55-1.3) H 04/13/22 05:04 Est GFR (CKD-EPI) 36 ml/min (=/>90) L 04/13/22 05:04 Glucose 82 mg/dL (74-106) 04/13/22 05:04 POC Glucose 87 mg/dL (65-120) 04/14/22 07:12 Calcium 8.7 mg/dL (8.5-10.1) 04/13/22 05:04 Magnesium 2.2 mg/dL (1.8-2.4) 04/13/22 05:04 NT-Pro-B Natriuret Pep 2448 pg/mL (<450) H 04/10/22 05:18 Albumin 2.1 g/dL (3.4-5.0) L 04/13/22 05:04 Prealbumin 9.8 mg/dL (20-40) L 04/13/22 05:04 Urine Color Light-yellow (Yellow) 04/07/22 23:11 Urine Clarity Clear (Clear) 04/07/22 23:11 Urine pH 6.0 (5.0-7.0) 04/07/22 23:11 Ur Specific [place] 1.013 (1.005-1.030) 04/07/22 23:11 Glucose (UA)(Auto) Negative (Negative) 04/07/22 23:11 Urine Ketones Trace (Negative) H 04/07/22 23:11 Urine Blood Negative (Negative) 04/07/22 23:11 Urine Nitrite Negative (Negative) 04/07/22 23:11 Urine Bilirubin Negative (Negative) 04/07/22 23:11 Urine Urobilinogen Normal (Normal) 04/07/22 23:11 Ur Leukocyte Esterase Negative Ab/uL (Negative) 04/07/22 23:11 Urine RBC <5 /HPF (None Seen) 04/07/22 23:11 Urine WBC <5 /HPF (<5) 04/07/22 23:11 Ur Squamous Epith Cells <5 /HPF (None Seen) 04/07/22 23:11 Urine Bacteria <20 /HPF (<20) 04/07/22 23:11 Hyaline Casts 0-5 /LPF (None Seen) 04/07/22 23:11 Granular Casts 0-5 /LPF (None Seen) 04/07/22 23:11 Urine Mucus Slight /HPF (None Seen) 04/07/22 23:11 Urine Total Protein Negative (Negative) 04/07/22 23:11 SARS-CoV-2 Rap RNA(RT-PCR) Negative (NEGATIVE) 04/07/22 19:30 SARS-CoV-2 Ag (Rapid) Cancelled 04/07/22 Unknown Weight: 164 lb 14.492 oz Wound Present: No Closed Surgical Incision Present: Yes Negative Pressure Wound Therapy Present: No Physician Update: She will be discharged home today with [facility]. Blood sugars are better controlled today after insulin was increased to 25 units. She is at indepedence with ADLs and mobilization. Summary: Patient's care plan and correction goals have been reviewed and revised as necessary. Please see the Rehabilitation Signature page for all necessary signatures.
[2022-04-14] MEDS ORDERED: PNEUMOCOCCAL VACCINE 0.5 ML IMVAC ONE (12:00)
[2022-04-14] MEDS: ramipriL 5 MG CAP PO SCH (12:31)
[2022-04-14 12:32] VITALS: BP 128/58
== END 2022-04-14 12:45 | disposition home health service (06) | DRG 560 ==
LOC: 5TH 18:00
PROVIDERS: ADMIT Psychiatry & Neurology Neurology with Special Qualifications in Child Neurology; ATTEND Psychiatry & Neurology Neurology with Special Qualifications in Child Neurology
DX: S72.012D Unspecified intracapsular fracture of left femur, subsequent encounter for closed fracture with routine healing (principal); E46 Unspecified protein-calorie malnutrition; J44.0 Chronic obstructive pulmonary disease with (acute) lower respiratory infection; N17.9 Acute kidney failure, unspecified; N39.0 Urinary tract infection, site not specified; J20.9 Acute bronchitis, unspecified; I13.10 Hypertensive heart and chronic kidney disease without heart failure, with stage 1 through stage 4 chronic kidney disease, or unspecified chronic kidney disease; N18.30 Chronic kidney disease, stage 3 unspecified; E11.22 Type 2 diabetes mellitus with diabetic chronic kidney disease; E11.65 Type 2 diabetes mellitus with hyperglycemia; N28.89 Other specified disorders of kidney and ureter; I25.10 Atherosclerotic heart disease of native coronary artery without angina pectoris; K59.00 Constipation, unspecified; G47.00 Insomnia, unspecified; E78.5 Hyperlipidemia, unspecified; F17.210 Nicotine dependence, cigarettes, uncomplicated; B96.1 Klebsiella pneumoniae [K. pneumoniae] as the cause of diseases classified elsewhere; Z23 Encounter for immunization; Z79.4 Long term (current) use of insulin; Z79.01 Long term (current) use of anticoagulants; Z68.26 Body mass index [BMI] 26.0-26.9, adult; Z79.899 Other long term (current) drug therapy; Z20.822 Contact with and (suspected) exposure to COVID-19; W18.30XD Fall on same level, unspecified, subsequent encounter
CPT/HCPCS: 36415; 80048; 81001; 82040; 82947; 83735; 83880; 84134; 85025; 87086; 87088; 90471; 90732; 97110; 97112; 97116; 97161; 97165; 97530; 97542; J1815; U0003

== ENCOUNTER 2022-06-11 16:49 | Emergency (ER) | payer OTHER ==
[2022-06-11] MEDS ORDERED: ONDANSETRON 4 MG/2 ML VIAL ONE (17:07)
[2022-06-11] MEDS ORDERED: MORPHINE 4 MG/ML SYR ONE (17:07)
--- NOTE | 2022-06-11 17:50 | RAD REPORT ---
EXAM DESCRIPTION: RAD - Chest Single View - 06/11/2022 5:43 pm CLINICAL HISTORY: fall Chest pain. COMPARISON: Chest Single View dated 04/07/2022; Chest Single View dated 04/05/2022; Chest Single Vie w dated 04/02/2022; Chest Pa And Lat (2 Views) dated 03/13/2022 FINDINGS: Portable technique limits examination quality. Small left pleural effusion with mild opacities in the left lung base noted. This may represent mild infiltrate/ developing pneumonia. The heart is mildly prominent size. No displaced fractures.
--- NOTE | 2022-06-11 17:51 | RAD REPORT ---
EXAM DESCRIPTION: RAD - Humerus Left - 06/11/2022 5:43 pm CLINICAL HISTORY: fall COMPARISON: No comparisons FINDINGS: Fracture the proximal left humerus is seen with mild impaction. The visualized left ribs a ppear demineralized without visualized fracture.
[2022-06-11] MEDS ORDERED: HYDROCODONE/APAP 7.5/325 MG TAB ONE (18:40)
--- NOTE | 2022-06-11 18:40 | EDPHYS ---
Physician Documentation [facility] Name: Keiko Rashid Age: 81 yrs Sex: Female : 1940 Arrival Date: 06/11/2022 Time: 16:52 Bed 12 Private MD: ED Physician Abdoul John HPI: 06/11 17:05 This 81 yrs old Female presents to ER via EMS with complaints of Fall Injury. cp 17:05 Details of fall: The patient fell from an upright position, while standing, while cp walking. Onset: The symptoms/episode began/occurred just prior to arrival. Associated injuries: The patient sustained left shoulder and upper arm. Patient reports losing balance in home while doing laundry and stumbling, striking left shoulder against doorway. Denies striking head, denies LOC. Historical: - Allergies: 17:29 No Known Allergies; kc6 - Home Meds: 18:02 atorvastatin 10 mg Oral tab 1 tab once daily [Active]; folic acid 1 mg Oral tab 1 tab kc6 once daily [Active]; furosemide 20 mg Oral tab 1 tab once daily [Active]; ramipril 10 mg Oral cap 1 cap once daily [Active]; Tresiba 56 units once a day [Active]; - PMHx: 17:41 Diabetes - IDDM; Hypertension; kc6 - Immunization history:: Client reports receiving the 2nd dose of the Covid vaccine, Flu vaccine is up to date. - Social history:: Smoking status: Patient denies any tobacco usage or history of. ROS: 17:10 Constitutional: Negative for body aches, chills, fever, poor PO intake. cp 17:10 Eyes: Negative for injury, pain, redness, and discharge. cp 17:10 Neck: Negative for pain with movement, pain at rest, stiffness. 17:10 Cardiovascular: Negative for chest pain, edema, palpitations. 17:10 Respiratory: Negative for cough, shortness of breath, wheezing. 17:10 Abdomen/GI: Negative for abdominal pain, nausea, vomiting, and diarrhea. 17:10 Back: Negative for pain at rest, pain with movement. 17:10 MS/extremity: Positive for pain, tenderness, of the left shoulder and left upper arm. 17:10 Neuro: Negative for altered mental status, dizziness, headache, loss of consciousness, numbness, syncope, weakness. 17:10 All other systems are negative. Exam: 17:15 Constitutional: The patient appears in no acute distress, alert, awake, cp non-diaphoretic, non-toxic, well developed, well nourished, uncomfortable. 17:15 Head/Face: Normocephalic, atraumatic. cp 17:15 Eyes: Periorbital structures: appear normal, Pupils: equal, round, and reactive to light and accomodation, Extraocular movements: intact throughout, Lids and lashes: appear normal, bilaterally. 17:15 Neck: C-spine: vertebral tenderness, is not appreciated, crepitus, is not appreciated, ROM/movement: is normal, is supple, without pain, no range of motions limitations, no nuchal rigidity. 17:15 Chest/axilla: Inspection: normal, Palpation: is normal, no crepitus, no tenderness. 17:15 Cardiovascular: Rate: normal, Rhythm: regular. 17:15 Respiratory: the patient does not display signs of respiratory distress, Respirations: normal, no use of accessory muscles, no retractions, labored breathing, is not present, Breath sounds: are clear throughout, no decreased breath sounds, no stridor, no wheezing. 17:15 Abdomen/GI: Inspection: abdomen appears normal, Palpation: abdomen is soft and non-tender, in all quadrants. 17:15 Back: pain, is absent, ROM is normal, vertebral tenderness, is not appreciated. 17:15 Musculoskeletal/extremity: Extremities: grossly normal except: noted in the left humerus: decreased ROM, pain, tenderness, ROM: limited passive range of motion due to pain, in the left shoulder, Pulses: noted to be 2+ in the left radial artery, the left shoulder Sensation intact. 17:15 Neuro: Orientation: to person, place \T\ time. Mentation: is normal. Vital Signs: 17:38 BP 165 / 89; Pulse 72; Resp 18 S; Pulse Ox 97% on R/A; Weight 63.5 kg (R); Height 5 ft. kc6 5 in. (165.10 cm) (R); Pain 7/10; 17:38 Body Mass Index 23.30 (63.50 kg, 165.10 cm) kc6 MDM: 17:03 Patient medically screened. cp 17:30 Differential diagnosis: closed head injury, contusion, fracture, laceration, multiple cp trauma, multiple trauma. 18:38 Data reviewed: vital signs, nurses notes, radiologic studies, plain films. 18:38 Management of patient was discussed with the following: ED physician. I considered the cp following discharge prescriptions or medication management in the emergency department Medications were administered in the Emergency Department. See MAR. Test considered but Not performed: CT: CT chest. Care significantly affected by the following chronic conditions: Diabetes, Hypertension. Counseling: I had a detailed discussion with the patient and/or guardian regarding: the historical points, exam findings, and any diagnostic results supporting the discharge/admit diagnosis, radiology results, the need for outpatient follow up, for definitive care, a orthopedic surgeon, to return to the emergency department if symptoms worsen or persist or if there are any questions or concerns that arise at home. Response to treatment: the patient's symptoms have markedly improved after treatment, and as a result, I will discharge patient. ED course: VSS. Patient denies chest pain, cough, shortness of breath at this time. Will treat pain and RX for Zithromax given due to chest xray concern for possible early pneumonia. 06/11 16:58 Order name: XRAY Chest (1 view); Complete Time: 18:23 06/11 18:30 Interpretation: Report review. 06/11 16:58 Order name: XRAY Humerus LEFT; Complete Time: 18:23 06/11 16:58 Order name: IV; Complete Time: 17:02 06/11 18:29 Order name: Sling; Complete Time: 18:44 cp Administered Medications: 17:11 Drug: morphine 4 mg Route: IVP; Infused Over: 4 mins; Site: right antecubital; kc6 18:35 Follow up: Response: No adverse reaction; Pain is decreased; RASS: Alert and Calm (0) kc6 17:11 Drug: Zofran (Ondansetron) 4 mg Route: IVP; Site: right antecubital; kc6 18:35 Follow up: Response: No adverse reaction 6 18:43 Drug: Hydrocodone-Acetaminophen (7.5 mg-325 mg) 1 tabs Route: PO; kc6 19:04 Follow up: Response: No adverse reaction; Pain is decreased; RASS: Alert and Calm (0) 6 Disposition Summary: 01/22/23 18:39 Discharge Ordered Location: Home cp Problem: new cp Symptoms: have improved cp Condition: Stable cp Diagnosis - Fracture of upper end of humerus cp Followup: cp - With: David Anderson MD - When: 2 - 3 days - Reason: left humerus fracture Discharge Instructions: - Discharge Summary Sheet cp - Humerus Fracture Treated With Immobilization cp Forms: - Medication Reconciliation Form cp - Thank You Letter cp - Antibiotic Education cp - Prescription Opioid Use cp Prescriptions: - Tramadol 50 mg Oral Tablet - take 1 tablet by ORAL route every 8 hours as needed; 12 tablet; Refills: 0, cp Product Selection Permitted - Zithromax Z-Zach 250 mg Oral Tablet - take 1 tablet by ORAL route as directed for 5 days Day 1 - take two (2) tablets cp one time. Day 2, 3, 4 , 5 take one (1) tablet once daily.; 6 tablet; Refills: 0, Product Selection Permitted - Mobic 7.5 mg Oral Tablet - take 1 tablet by ORAL route once daily take with food; 20 tablet; Refills: 0, cp Product Selection Permitted Addendum: 06/13/2022 01:06 Co-signature as Attending Physician, Abdoul John MD. r n Signatures: Dispatcher [employer] Abdoul Marlow MD MD rn Javad Reis PA PA cp Campbell, Kaitlyn RN RN kc6
--- NOTE | 2022-06-11 18:40 | ER ---
Nurse's Notes [facility] Name: Keiko Rashid Age: 81 yrs Sex: Female : 1940 Arrival Date: 06/11/2022 Time: 16:52 Bed 12 Private MD: Diagnosis: Fracture of upper end of humerus Presentation: 06/11 17:38 Chief complaint: EMS states: client tripped and fell while doing laundry and landed on kc6 her left shoulder. no LOC, no blood thinners. 30mg of Toradol given en route. skin tear appears to be present to the right arm. BGL 262. Coronavirus screen: Vaccine status: Patient reports receiving the 2nd dose of the covid vaccine. At this time, the client does not indicate any symptoms associated with coronavirus-19. Ebola Screen: No symptoms or risks identified at this time. Initial Sepsis Screen: Does the patient meet any 2 criteria? No. Patient's initial sepsis screen is negative. Does the patient have a suspected source of infection? No. Patient's initial sepsis screen is negative. Risk Assessment: Do you want to hurt yourself or someone else? Patient reports no desire to harm self or others. Onset of symptoms was June 11, 2022. 17:38 Method Of Arrival: EMS: [facility] kc6 17:38 Acuity: GERRI 3 kc6 Triage Assessment: 17:41 General: Appears in no apparent distress. uncomfortable, Behavior is calm, cooperative, kc6 appropriate for age. Pain: Complains of pain in left shoulder Pain does not radiate. Pain currently is 7 out of 10 on a pain scale. Quality of pain is described as sharp, Pain began suddenly, 1 hour ago. Is continuous, Alleviated by nothing. Aggravated by increased activity, repositioning, Noted to be grimacing, resistant to movement, Also complains of no other associated symptoms. EENT: No signs and/or symptoms were reported regarding the EENT system. Neuro: Herman Agitation-Sedation Scale (RASS): 0 - Alert and Calm Level of Consciousness is awake, alert, obeys commands, Oriented to person, place, time, situation, Appropriate for age. Cardiovascular: Capillary refill < 3 seconds. Respiratory: Airway is patent Trachea midline Respiratory effort is even, unlabored, Respiratory pattern is regular, symmetrical. GI: No signs and/or symptoms were reported involving the gastrointestinal system. : No signs and/or symptoms were reported regarding the genitourinary system. Derm: Skin is pink, warm \T\ dry. Derm: skin tear to the right forearm. Musculoskeletal: Circulation, motion, and sensation intact. Capillary refill < 3 seconds, Range of motion: intact in all extremities. Historical: - Allergies: 17:29 No Known Allergies; kc6 - Home Meds: 18:02 atorvastatin 10 mg Oral tab 1 tab once daily [Active]; folic acid 1 mg Oral tab 1 tab kc6 once daily [Active]; furosemide 20 mg Oral tab 1 tab once daily [Active]; ramipril 10 mg Oral cap 1 cap once daily [Active]; Tresiba 56 units once a day [Active]; - PMHx: 17:41 Diabetes - IDDM; Hypertension; kc6 - Immunization history:: Client reports receiving the 2nd dose of the Covid vaccine, Flu vaccine is up to date. - Social history:: Smoking status: Patient denies any tobacco usage or history of. Screenin:48 [facility] ED Fall Risk Assessment (Adult) History of falling in the last 3 months, kc6 including since admission Yes- single mechanical fall (1 pt) Confusion or Disorientation No (0 pts) Intoxicated or Sedated No (0 pts) Impaired Gait No (0 pts) Mobility Assist Device Used No (0 pt) Altered Elimination No (0 pt) Score/Fall Risk Level 0 - 2 = Low Risk Oriented to surroundings, Maintained a safe environment, Educated pt \T\ family on fall prevention, incl call for assistance when getting out of bed, Assessed \T\ reinforced patient's understanding of fall precautions, Hourly rounding (assess needs \T\ fall precautionary measures) done. Abuse screen: Denies threats or abuse. Denies injuries from another. Nutritional screening: No deficits noted. Tuberculosis screening: No symptoms or risk factors identified. Assessment: 17:44 Reassessment: please see triage assessment. [facility] 18:44 Reassessment: Patient appears in no apparent distress at this time. No changes from [facility] previously documented assessment. Patient and/or family updated on plan of care and expected duration. Pain level reassessed. Patient is alert, oriented x 3, equal unlabored respirations, skin warm/dry/pink. Patient states feeling better. Patient states symptoms have improved. Vital Signs: 17:38 BP 165 / 89; Pulse 72; Resp 18 S; Pulse Ox 97% on R/A; Weight 63.5 kg (R); Height 5 ft. kc6 5 in. (165.10 cm) (R); Pain 7/10; 17:38 Body Mass Index 23.30 (63.50 kg, 165.10 cm) kc6 ED Course: 16:52 Patient arrived in ED. eb 16:58 Javad Reis PA is PHCP. cp 16:58 Abdoul John MD is Attending Physician. cp 17:02 Peggy Fuller, JESSICA is Primary Nurse. kc6 17:41 Triage completed. kc6 17:44 XRAY Chest (1 view) In Process Unspecified. EDMS 17:44 XRAY Humerus LEFT In Process Unspecified. EDMS 17:48 Arm band placed on. kc6 17:48 Patient has correct armband on for positive identification. Bed in low position. Call kc6 light in reach. Side rails up X2. Adult w/ patient. 18:38 aDvid Anderson MD is Referral Physician. cp 19:04 No provider procedures requiring assistance completed. IV discontinued, intact, kc6 bleeding controlled, No redness/swelling at site. Pressure dressing applied. Administered Medications: 17:11 Drug: morphine 4 mg Route: IVP; Infused Over: 4 mins; Site: right antecubital; kc6 18:35 Follow up: Response: No adverse reaction; Pain is decreased; RASS: Alert and Calm (0) kc6 17:11 Drug: Zofran (Ondansetron) 4 mg Route: IVP; Site: right antecubital; kc6 18:35 Follow up: Response: No adverse reaction kc6 18:43 Drug: Hydrocodone-Acetaminophen (7.5 mg-325 mg) 1 tabs Route: PO; kc6 19:04 Follow up: Response: No adverse reaction; Pain is decreased; RASS: Alert and Calm (0) kc6 Medication: 19:04 VIS not applicable for this client. kc6 Outcome: 18:39 Discharge ordered by . cp 19:04 Discharged to home via wheelchair, with family. kc6 19:04 Condition: stable 19:04 Discharge instructions given to patient, family, Instructed on discharge instructions, follow up and referral plans. medication usage, Demonstrated understanding of instructions, follow-up care, medications, Prescriptions given X 3. 19:04 Patient left the ED. kc6 Signatures: Dispatcher [employer] EDMS Javad Reis PA PA cp Botello, Elizabeth eb Campbell, Kaitlyn, RN RN kc6
[2022-06-11 19:32] VITALS: BP 165/89; O2SAT 97
== END 2022-06-11 19:04 | disposition home or self-care (01) ==
LOC: ER 16:49
DX: S42.202A Unspecified fracture of upper end of left humerus, initial encounter for closed fracture (principal); E11.9 Type 2 diabetes mellitus without complications; I10 Essential (primary) hypertension
CPT/HCPCS: 71045; 73060; 96375; 96374; 99283; J2405

== ENCOUNTER 2022-10-09 11:26 | Emergency (ER) | payer OTHER ==
--- OUTSIDE RECORDS SUMMARY | 2022-10-09 11:29 | XMS REPORT | Continuity of Care Document ---
:1940 Author Organization [facility] t Address [address] [place] [id number] Care Team Providers Name Role Phone Unavailable Unavailable Unavailable Problems This patient has no known problems. Allergies, Adverse Reactions, Alerts This patient has no known allergies or adverse reactions. Medications This patient has no known medications. Procedures This patient has no known procedures. Encounters Start End Encounter Admission Attending Care Care Encounter Source Date/Time Date/Time Type Type Clinicians Facility Department ID 2022-07-19 Outpatient [facility] [id number] Common 10:33:03 [id number] [facility] 2022-06-12 Outpatient [facility] [id number] Common 10:47:06 [id number] [facility] Results This patient has no known results.
[2022-10-09] MEDS ORDERED: KETOROLAC 30 MG/ML INJ ONE (13:02)
--- NOTE | 2022-10-09 13:14 | RAD REPORT ---
EXAM DESCRIPTION: RAD - Wrist Left 3 View - 10/09/2022 1:00 pm CLINICAL HISTORY: PAIN Pain COMPARISON: No comparisons FINDINGS: Moderate soft tissue swelling is present. No underlying fracture or dislocation seen. No e rosive changes evident. Mild radiocarpal joint arthritic changes. No radiopaque foreign body or soft tissue gas.
--- NOTE | 2022-10-09 13:33 | RAD REPORT ---
EXAM DESCRIPTION: US - UPPER EXTREMITY VENOUS UNILATE - 10/09/2022 1:25 pm CLINICAL HISTORY: SWELLING Arm swelling and edema. COMPARISON: <Comparisons> FINDINGS: Left upper extremity venous system was interrogated with Doppler technique. Normal flow, c ompressibility and augmentation was noted. There is no DVT present. IMPRESSION: No evidence of left upper extremity deep venous thrombosis.
[2022-10-09 13:40] LABS: Absolute Lymphocytes (CBC) 0.4 K/uL (0.7-4.9); Hematocrit 30.6 % (36.0-45.0); Lymphocytes % 6.2 % (15.3-44.8); MCV 77.6 fL (80-100); RBC Red Blood Cell Count 3.95 M/uL (3.86-4.86)
[2022-10-09 13:57] LABS: AST/SGOT 9 U/L (15-37); Albumin 2.2 g/dL (3.4-5.0); Alkaline Phosphatase 119 U/L (45-117); BUN Blood Urea Nitrogen 21 mg/dL (7-18); Bicarbonate 30 mEq/L (21-32); Bilirubin Total 0.6 mg/dL (0.2-1.0); Glomerular Filtration Rate 59 ml/min (=/>90); Glucose Level 135 mg/dL (74-106); Potassium 3.7 mEq/L (3.5-5.1); Protein, Total 7.6 g/dL (6.4-8.2); Sodium Level 143 mEq/L (136-145)
[2022-10-09 14:01] LABS: ALT/SGPT < 10 U/L (13-56)
--- NOTE | 2022-10-09 14:10 | EDPHYS ---
Physician Documentation [facility] Name: Keiko Rashid Age: 82 yrs Sex: Female : 1940 Arrival Date: 10/09/2022 Time: 11:26 Bed 13 Private MD: ED Physician Shira Stout HPI: 10/09 13:11 This 82 yrs old Female presents to ER via Ambulatory with complaints of Hand Swelling, sp3 Hand Pain. 13:11 2-year-old female with history of diabetes and hypertension presents with left wrist sp3 and hand pain and swelling insidious in nature without any reported trauma. Patient states that she has had increased movements with cooking rather than that no repetitive or abnormal movements. No prior history of the same. No fever or proximal muscle pain in the extremity, elbow pain or shoulder pain. No other systemic symptoms. Review of systems negative for headache, neck pain, chest pain, shortness of breath, back pain, abdominal pain, nausea, vomiting, diarrhea, travel history, fever, URI symptoms, known sick contacts, prolonged immobilization, prior PE or DVT, or any other signs or symptoms at this time.. Historical: - Allergies: 12:28 No Known Allergies; ph - Home Meds: 12:28 atorvastatin 10 mg Oral tab 1 tab once daily [Active]; folic acid 1 mg Oral tab 1 tab ph once daily [Active]; furosemide 20 mg Oral tab 1 tab once daily [Active]; Tresiba 56 units once a day [Active]; - PMHx: 12:28 Diabetes - IDDM; Hypertension; ph - Immunization history:: Adult Immunizations up to date. - Social history:: Smoking status: Patient/guardian denies using tobacco, but has a distant history of tobacco abuse. ROS: 13:13 Constitutional: Negative for fever, chills, and weight loss, Eyes: Negative for injury, sp3 pain, redness, and discharge, ENT: Negative for injury, pain, and discharge, Neck: Negative for injury, pain, and swelling, Cardiovascular: Negative for chest pain, palpitations, and edema, Respiratory: Negative for shortness of breath, cough, wheezing, and pleuritic chest pain, Abdomen/GI: Negative for abdominal pain, nausea, vomiting, diarrhea, and constipation, Back: Negative for injury and pain, Skin: Negative for injury, rash, and discoloration, Neuro: Negative for headache, weakness, numbness, tingling, and seizure, Psych: Negative for depression, anxiety, suicide ideation, homicidal ideation, and hallucinations, Allergy/Immunology: Negative for hives, rash, and allergies, Endocrine: Negative for neck swelling, polydipsia, polyuria, polyphagia, and marked weight changes. 13:13 All other systems are negative. Exam: 13:13 Constitutional: This is a well developed, well nourished patient who is awake, alert, sp3 and in no acute distress. Head/Face: Normocephalic, atraumatic. Eyes: Pupils equal round and reactive to light, extra-ocular motions intact. Lids and lashes normal. Conjunctiva and sclera are non-icteric and not injected. Cornea within normal limits. Periorbital areas with no swelling, redness, or edema. Neck: Trachea midline, no thyromegaly or masses palpated, and no cervical lymphadenopathy. Supple, full range of motion without nuchal rigidity, or vertebral point tenderness. No Meningismus. Chest/axilla: Normal chest wall appearance and motion. Nontender with no deformity. No lesions are appreciated. Cardiovascular: Regular rate and rhythm with a normal S1 and S2. No gallops, murmurs, or rubs. Normal PMI, no JVD. No pulse deficits. Respiratory: Lungs have equal breath sounds bilaterally, clear to auscultation and percussion. No rales, rhonchi or wheezes noted. No increased work of breathing, no retractions or nasal flaring. Abdomen/GI: Soft, non-tender, with normal bowel sounds. No distension or tympany. No guarding or rebound. No evidence of tenderness throughout. Back: No spinal tenderness. No costovertebral tenderness. Full range of motion. Skin: Warm, dry with normal turgor. Normal color with no rashes, no lesions, and no evidence of cellulitis. Neuro: Awake and alert, GCS 15, oriented to person, place, time, and situation. Cranial nerves II-XII grossly intact. Motor strength 5/5 in all extremities. Sensory grossly intact. Cerebellar exam normal. Normal gait. Psych: Awake, alert, with orientation to person, place and time. Behavior, mood, and affect are within normal limits. 13:13 Musculoskeletal/extremity: Left proximal hand and distal wrist swelling circumferential in nature. Patient is tender to palpation radial side of the distal radius distal neurovascular exam is normal. Swelling does not extend past midline of the forearm. No crepitus noted.. Vital Signs: 12:25 BP 165 / 63; Pulse 70; Resp 18; Temp 97.6; Pulse Ox 95% on R/A; Weight 72.57 kg; Height ph 5 ft. 5 in. ; 12:25 Body Mass Index 26.63 (72.57 kg, 165.1 cm) ph MDM: 12:40 Patient medically screened. sp3 13:14 Data reviewed: vital signs, nurses notes. ED course: 82-year-old female with left wrist sp3 and hand swelling and pain. Consider tenosynovitis versus DVT versus traumatic fracture pathologic fracture. Will obtain ultrasound of the left upper extremity, x-ray, laboratory values including CRP and treat with ketorolac IV 50 mg. Disposition pending work-up and patient course with likely discharge to orthopedics with NSAID prescription.. 14:09 ED course: Please demonstrate no fracture. Ultrasound demonstrates no DVT. WBC count is sp3 normal and I am not highly suspicious for fracture. CRP is elevated at 114 and likely indicates tenosynovitis. We will discharge patient on oral NSAID and orthopedic follow-up.. 10/09 12:42 Order name: CBC with Diff; Complete Time: 14:08 sp3 10/09 12:42 Order name: CMP; Complete Time: 14:08 sp3 10/09 12:42 Order name: CRP; Complete Time: 14:08 sp3 10/09 12:42 Order name: Wrist Left (3 View) XRAY; Complete Time: 14:08 sp3 10/09 13:06 Order name: UPPER EXTREMITY VENOUS UNILATE; Complete Time: 14:08 EDMS 10/09 12:42 Order name: IV Saline Lock; Complete Time: 13:31 sp3 10/09 12:42 Order name: Labs collected and sent; Complete Time: 13:31 sp3 Administered Medications: 13:25 Drug: Ketorolac IVP 15 mg Route: IVP; Site: right antecubital; eh3 14:00 Follow up: Response: No adverse reaction eh3 Disposition Summary: 10/09/22 14:10 Discharge Ordered Location: Home sp3 Condition: Stable sp3 Diagnosis - Other synovitis and tenosynovitis, left hand sp3 Followup: sp3 - With: Private Physician - When: Upon discharge from the Emergency Department - Reason: Continuance of care Discharge Instructions: - Discharge Summary Sheet sp3 - Tenosynovitis sp3 Forms: - Medication Reconciliation Form sp3 - Thank You Letter sp3 - Antibiotic Education sp3 - Prescription Opioid Use sp3 Prescriptions: - Diclofenac Sodium 75 mg Oral Tablet Sustained Release - take 1 tablet by ORAL route 2 times per day; 30 tablet; Refills: 0, Product sp3 Selection Permitted Signatures: Dispatcher [employer] EDKerline Schmidt, RN RN ph Shira Stout MD MD sp3 Jessy Liu RN RN eh3 Corrections: (The following items were deleted from the chart) 12:29 12:28 Home Meds: ramipril 10 mg Oral cap 1 cap once daily; ph ph 13:06 12:42 Extremity Venous Uni [email or web address] ordered. [facility]
--- NOTE | 2022-10-09 14:10 | ER ---
Nurse's Notes [facility] Name: Keiko Rashid Age: 82 yrs Sex: Female : 1940 Arrival Date: 10/09/2022 Time: 11:26 Bed 13 Private MD: Diagnosis: Other synovitis and tenosynovitis, left hand Presentation: 10/09 12:25 Chief complaint: Patient states: Swelling and pain to L hand and wrist that started ph last night, denies injury. Coronavirus screen: Vaccine status: Patient reports receiving the 2nd dose of the covid vaccine. Ebola Screen: No symptoms or risks identified at this time. Initial Sepsis Screen: Does the patient meet any 2 criteria? No. Patient's initial sepsis screen is negative. Does the patient have a suspected source of infection? No. Patient's initial sepsis screen is negative. Risk Assessment: Do you want to hurt yourself or someone else? Patient reports no desire to harm self or others. Onset of symptoms was October 09, 2022. 12:25 Method Of Arrival: Ambulatory ph 12:25 Acuity: GERRI 4 ph Historical: - Allergies: 12:28 No Known Allergies; ph - Home Meds: 12:28 atorvastatin 10 mg Oral tab 1 tab once daily [Active]; folic acid 1 mg Oral tab 1 tab ph once daily [Active]; furosemide 20 mg Oral tab 1 tab once daily [Active]; Tresiba 56 units once a day [Active]; - PMHx: 12:28 Diabetes - IDDM; Hypertension; ph - Immunization history:: Adult Immunizations up to date. - Social history:: Smoking status: Patient/guardian denies using tobacco, but has a distant history of tobacco abuse. Vital Signs: 12:25 BP 165 / 63; Pulse 70; Resp 18; Temp 97.6; Pulse Ox 95% on R/A; Weight 72.57 kg; Height ph 5 ft. 5 in. ; 12:25 Body Mass Index 26.63 (72.57 kg, 165.1 cm) ph ED Course: 11:27 Patient arrived in ED. am2 11:31 Shira Stout MD is Attending Physician. sp3 12:28 Triage completed. ph 12:29 Arm band placed on. ph 12:53 Jessy Liu, JESSICA is Primary Nurse. eh3 13:02 Wrist Left (3 View) XRAY In Process Unspecified. EDMS 13:27 UPPER EXTREMITY VENOUS UNILATE In Process Unspecified. EDMS 13:31 Inserted saline lock: 22 gauge in right antecubital area, using aseptic technique. Blood collected. 13:32 CBC with Diff Sent. 13:32 CMP Sent. 13:32 CRP Sent. Administered Medications: 13:25 Drug: Ketorolac IVP 15 mg Route: IVP; Site: right antecubital; [facility] 14:00 Follow up: Response: No adverse reaction [facility] Outcome: 14:10 Discharge ordered by . spValentin 14:48 Patient left the ED. 3 Signatures: Dispatcher [employer] Kerline Palmer RN RN Brynn Correia Shira Thompson MD MD sp3 Jessy Liu RN RN 3 Jocy Pool Corrections: (The following items were deleted from the chart) 12:29 12:28 Home Meds: ramipril 10 mg Oral cap 1 cap once daily; ph ph
[2022-10-09 14:54] VITALS: BP 165/63; TEMP 97.6; O2SAT 95
== END 2022-10-09 14:48 | disposition home or self-care (01) ==
LOC: ER 11:26
DX: M65.842 Other synovitis and tenosynovitis, left hand (principal); E11.9 Type 2 diabetes mellitus without complications; I10 Essential (primary) hypertension
CPT/HCPCS: 36415; 80053; 85025; 86140; 93971

== ENCOUNTER 2023-03-05 14:19 | Inpatient (IN) | payer OTHER ==
--- OUTSIDE RECORDS SUMMARY | 2023-03-05 14:22 | XMS REPORT | Continuity of Care Document ---
:1940 Author Organization [facility] t Address [address] [place] [id number] Care Team Providers Name Role Phone Unavailable Unavailable Unavailable Problems This patient has no known problems. Allergies, Adverse Reactions, Alerts This patient has no known allergies or adverse reactions. Medications This patient has no known medications. Procedures This patient has no known procedures. Encounters Start End Encounter Admission Attending Care Care Encounter Source Date/Time Date/Time Type Type Clinicians Facility Department ID 2022-07-19 Outpatient [facility] [id number] Common 10:33:03 [id number] [facility] 2022-06-12 Outpatient [facility] [id number] Common 10:47:06 [id number] [facility] Results This patient has no known results.
--- NOTE | 2023-03-05 15:05 | RAD REPORT ---
EXAM DESCRIPTION: RAD - Chest Single View - 03/05/2023 2:54 pm CLINICAL HISTORY: shortness of breath Chest pain. COMPARISON: Chest Pa And Lat (2 Views) dated 06/27/2022; Chest Single View dated 06/11/2022; Chest Sing le View dated 04/07/2022; Chest Single View dated 04/05/2022 FINDINGS: Portable technique limits examination quality. Mild bilateral pulmonary edema pattern seen. Vague nodular opacity is present in the right upper lobe as well. Moderate to large left pleural effusion noted. Heart is mildly enlarged in size.
[2023-03-05 16:43] LABS: AST/SGOT 10 U/L (15-37); Albumin 1.6 g/dL (3.4-5.0); Alkaline Phosphatase 106 U/L (45-117); BUN Blood Urea Nitrogen 22 mg/dL (7-18); Bicarbonate 30 mEq/L (21-32); Bilirubin Direct 0.1 mg/dL (0-0.2); Bilirubin Indirect, Calculated 0.2 mg/dL (0.2-0.8); Bilirubin Total 0.3 mg/dL (0.2-1.0); Glomerular Filtration Rate 52 ml/min (=/>90); Glucose Level 151 mg/dL (74-106); Magnesium 1.3 mg/dL (1.6-2.4); NT PRO-BNP 26428 pg/mL (<450); Potassium 3.9 mEq/L (3.5-5.1); Protein, Total 6.1 g/dL (6.4-8.2); Sodium Level 144 mEq/L (136-145); Troponin High Sensitivity 26.8 pg/mL (<58.9)
[2023-03-05 16:44] LABS: ALT/SGPT < 10 U/L (13-56)
[2023-03-05] MEDS ORDERED: FUROSEMIDE 40 MG/4 ML VIAL ONE (16:49)
--- NOTE | 2023-03-05 16:53 | ER ---
Nurse's Notes [facility] Name: Keiko Rashid Age: 82 yrs Sex: Female : 1940 Arrival Date: 03/05/2023 Time: 14:19 Bed 6 Private MD: Diagnosis: Heart failure, unspecified;Acute pulmonary edema;Essential (primary) hypertension;Pleural effusion, not elsewhere classified Presentation: 03/05 14:36 Chief complaint: Patient states: Shortness of breath, feet swelling for 2-3 months. R ll1 hand swelling, crush injury 3 weeks ago. Coronavirus screen: Vaccine status: Patient reports receiving the 2nd dose of the covid vaccine. Ebola Screen: Patient denies travel to an Ebola-affected area in the 21 days before illness onset. Initial Sepsis Screen: Does the patient meet any 2 criteria? No. Patient's initial sepsis screen is negative. Does the patient have a suspected source of infection? No. Patient's initial sepsis screen is negative. Risk Assessment: Do you want to hurt yourself or someone else? Patient reports no desire to harm self or others. Onset of symptoms was 2022. 14:36 Method Of Arrival: Wheelchair ll1 14:36 Acuity: GERRI 3 ll1 Triage Assessment: 14:40 General: Appears uncomfortable, Behavior is calm, cooperative, appropriate for age. ll1 Pain: Complains of pain in abdomen Quality of pain is described as aching, squeezing. Respiratory: Reports shortness of breath on exertion. GI: Reports bloating. Musculoskeletal: Reports BLE swelling. Historical: - Allergies: 14:39 No Known Allergies; ll1 - PMHx: 14:39 Diabetes - IDDM; diabetes mellitus; Hypertension; Congestive heart failure; ll1 - Immunization history:: Client reports receiving the 2nd dose of the Covid vaccine. - Social history:: Smoking status: Patient/guardian denies using tobacco, but has a distant history of tobacco abuse. Screenin:52 [facility] ED Fall Risk Assessment (Adult) Score/Fall Risk Level. Abuse screen: Denies iw threats or abuse. Denies injuries from another. Nutritional screening: No deficits noted. Tuberculosis screening: No symptoms or risk factors identified. Assessment: 15:47 Reassessment: No changes from previously documented assessment. Patient and/or family ll1 updated on plan of care and expected duration. Pain level reassessed. Patient is alert, oriented x 3, equal unlabored respirations, skin warm/dry/pink. 16:45 Reassessment: Patient appears in no apparent distress at this time. No changes from ld1 previously documented assessment. Patient and/or family updated on plan of care and expected duration. Pain level reassessed. 17:45 Reassessment: Patient appears in no apparent distress at this time. No changes from ld1 previously documented assessment. Patient and/or family updated on plan of care and expected duration. Pain level reassessed. Patient is alert, oriented x 3, equal unlabored respirations, skin warm/dry/pink. 18:40 Reassessment: Patient appears in no apparent distress at this time. No changes from ld1 previously documented assessment. Patient and/or family updated on plan of care and expected duration. Pain level reassessed. Patient is alert, oriented x 3, equal unlabored respirations, skin warm/dry/pink. 19:30 Reassessment: Patient appears in no apparent distress at this time. Patient and/or jb4 family updated on plan of care and expected duration. Pain level reassessed. Patient is alert, oriented x 3, equal unlabored respirations, skin warm/dry/pink. 20:33 Reassessment: Patient appears in no apparent distress at this time. Patient and/or jb4 family updated on plan of care and expected duration. Pain level reassessed. Patient is alert, oriented x 3, equal unlabored respirations, skin warm/dry/pink. Vital Signs: 14:36 BP 145 / 59; Pulse 72; Resp 16; Temp 97.8(O); Pulse Ox 97% on R/A; Weight 68.04 kg; ll1 Height 5 ft. 6 in. ; Pain 0/10; 16:52 BP 154 / 52; Pulse 80; Resp 19; Pulse Ox 99% on R/A; iw 17:30 BP 150 / 63; Pulse 74; Resp 18; Pulse Ox 95% on R/A; ld1 18:00 BP 146 / 66; Pulse 75; Resp 18; Pulse Ox 96% on R/A; ld1 18:30 BP 157 / 71; Pulse 75; Resp 18; Pulse Ox 100% on R/A; ld1 20:33 BP 147 / 79; Pulse 73; Resp 17; Pulse Ox 98% on R/A; jb4 14:36 Body Mass Index 24.21 (68.04 kg, 167.64 cm) ll1 14:36 Pain Scale: Adult ll1 ED Course: 14:20 Patient arrived in ED. rg4 14:24 Marck Noriega DO is Attending Physician. ms3 14:39 Triage completed. ll1 14:39 Arm band placed on right wrist. ll1 14:55 XRAY Chest (1 view) In Process Unspecified. EDMS 15:22 Patient placed in an exam room, on a stretcher. ll1 15:47 Inserted saline lock: 22 gauge in right antecubital area, using aseptic technique. ll1 Blood collected. 16:49 Sarah Tejeda, RN is Primary Nurse. iw 16:52 Rakesh John MD is Hospitalizing Provider. ms3 20:35 Patient admitted, IV remains in place. jb4 Administered Medications: 16:49 Drug: Furosemide IVP 40 mg IVP once; give over 2 minutes Route: IVP; Site: left iw antecubital; Output: 19:03 Urine: 800ml; Total: 800ml. iw Outcome: 16:52 Decision to Hospitalize by Provider. ms3 20:35 Admitted to Tele accompanied by tech, via stretcher, with chart, jb4 20:35 Condition: stable 20:35 Discharge instructions given to patient, family, Instructed on the need for admit, Demonstrated understanding of instructions, 20:56 Patient left the ED. cm10 Signatures: Dispatcher [employer] EDMS Sarah Tejeda, RN Becky Gonsalez rg4 Shamar Singleton RN RN jb4 Genaro Fuentes RN RN [facility] Marck Noriega DO DO ms3 Nasima Noriega, RN RN inocente1 Gabbie Pool, RN RN cm10
--- NOTE | 2023-03-05 16:53 | EDPHYS ---
Physician Documentation [facility] Name: Keiko Rashid Age: 82 yrs Sex: Female : 1940 Arrival Date: 03/05/2023 Time: 14:19 Bed 6 Private MD: ED Physician Marck Noriega HPI: 03/05 16:24 This 82 yrs old Female presents to ER via Wheelchair with complaints of Breathing ms3 Difficulty, Swelling. 16:24 82-year-old female past medical history of diabetes, hypertension, congestive heart ms3 failure presents from Dr. Connell's office for fluid overload. Patient states she has had lower extremity swelling for 1 month and has become worse over the last 1 week. Patient endorses shortness of breath. Patient denies chest pain, nausea, vomiting. Patient denies any alleviating or inciting factors. Historical: - Allergies: 14:39 No Known Allergies; ll1 - PMHx: 14:39 Diabetes - IDDM; diabetes mellitus; Hypertension; Congestive heart failure; ll1 - Immunization history:: Client reports receiving the 2nd dose of the Covid vaccine. - Social history:: Smoking status: Patient/guardian denies using tobacco, but has a distant history of tobacco abuse. ROS: 16:24 Constitutional: Negative for fever, and chills. Neck: Negative for injury, pain, and ms3 swelling, Cardiovascular: Negative for chest pain, and palpitations. Abdomen/GI: Negative for abdominal pain, nausea, vomiting, diarrhea, and constipation, 16:24 MS/Extremity: Negative for injury and deformity, Skin: Negative for injury, rash, and discoloration, 16:24 Respiratory: Positive for shortness of breath, 16:24 All other systems are negative, Exam: 16:24 Constitutional: This is a well developed, well nourished patient who is awake, alert, ms3 and in no acute distress. Head/Face: Normocephalic, atraumatic. Chest/axilla: Normal chest wall appearance and motion. Nontender with no deformity. Cardiovascular: Regular rate and rhythm with a normal S1 and S2. No gallops, murmurs, or rubs. Normal PMI, no JVD. No pulse deficits. Respiratory: Lungs have equal breath sounds bilaterally, clear to auscultation and percussion. No rales, rhonchi or wheezes noted. No increased work of breathing, no retractions or nasal flaring. Abdomen/GI: Soft, non-tender, with normal bowel sounds. No distension or tympany. No guarding or rebound. No evidence of tenderness throughout. Skin: Warm, dry with normal turgor. Normal color with no rashes, no lesions, and no evidence of cellulitis. 16:24 Cardiovascular: Rate: normal, Rhythm: irregularly irregular, Pulses: no pulse deficits are appreciated, Heart sounds: murmur, systolic, Edema: 4+ edema to level of left upper thigh, left lower thigh, left knee, left midcalf, left ankle, left foot, left toes, right upper thigh, right lower thigh, right knee, right midcalf, right ankle, right foot and right toes, pedal edema, that is marked, 16:24 ECG was reviewed by the Attending Physician. Vital Signs: 14:36 BP 145 / 59; Pulse 72; Resp 16; Temp 97.8(O); Pulse Ox 97% on R/A; Weight 68.04 kg; ll1 Height 5 ft. 6 in. ; Pain 0/10; 16:52 BP 154 / 52; Pulse 80; Resp 19; Pulse Ox 99% on R/A; iw 17:30 BP 150 / 63; Pulse 74; Resp 18; Pulse Ox 95% on R/A; ld1 18:00 BP 146 / 66; Pulse 75; Resp 18; Pulse Ox 96% on R/A; ld1 18:30 BP 157 / 71; Pulse 75; Resp 18; Pulse Ox 100% on R/A; ld1 20:33 BP 147 / 79; Pulse 73; Resp 17; Pulse Ox 98% on R/A; jb4 14:36 Body Mass Index 24.21 (68.04 kg, 167.64 cm) ll1 14:36 Pain Scale: Adult ll1 MDM: 14:51 Patient medically screened. ms3 16:53 Differential diagnosis: CHF exacerbation, Myocardial Infarction pneumonia, pulmonary ms3 edema. Data reviewed: vital signs, nurses notes, lab test result(s), EKG, radiologic studies, and as a result, I will admit patient. Consideration of Admission/Observation Patient was admitted/placed on observation. Management of patient was discussed with the following: Hospitalist: Discussed case with Florentino Tejeda on behalf of Dr John. I considered the following discharge prescriptions or medication management in the emergency department Medications were administered in the Emergency Department. See MAR. Independent interpretation of the following test(s) in the Emergency Department EKG: See my EKG interpretation above X-Ray: My interpretation is CXR image reviewed by me shows pulmonary edema. Historians other than the Patient: Spouse/Significant Other: . Care significantly affected by the following chronic conditions: Diabetes, Hypertension, Congestive Heart Failure. Counseling: I had a detailed discussion with the patient and/or guardian regarding the historical points, exam findings, and any diagnostic results supporting the discharge/admit diagnosis, lab results, radiology results, the need for further work-up and treatment in the hospital. ED course: Discussed labs and chest x-ray findings with patient. Discussed necessity for admission. Patient and her understand agree with plan. All questions were answered.. 03/05 14:24 Order name: Basic Metabolic Panel; Complete Time: 16:50 ms3 03/05 14:24 Order name: CBC with Diff ms3 03/05 14:24 Order name: LFT's; Complete Time: 16:50 ms3 03/05 14:24 Order name: Magnesium; Complete Time: 16:50 ms3 03/05 14:24 Order name: NT PRO-BNP; Complete Time: 16:50 ms3 03/05 14:24 Order name: Troponin HS; Complete Time: 16:50 ms3 03/05 20:23 Order name: CBC Smear Scan EDMS 03/05 14:24 Order name: XRAY Chest (1 view); Complete Time: 15:22 ms3 03/05 14:24 Order name: EKG; Complete Time: 14:25 ms3 03/05 18:18 Order name: CONS Physician Consult EDMS 03/05 14:24 Order name: Cardiac monitoring; Complete Time: 15:47 ms3 03/05 14:24 Order name: EKG - Nurse/Tech; Complete Time: 15:47 ms3 03/05 14:24 Order name: IV Saline Lock; Complete Time: 15:27 ms3 03/05 14:24 Order name: Labs collected and sent; Complete Time: 15:27 ms3 03/05 14:24 Order name: O2 Per Protocol; Complete Time: 15:28 ms3 03/05 14:24 Order name: O2 Sat Monitoring; Complete Time: 15:28 ms3 03/05 15:47 Order name: Labs - recollect needed: recollect labs/ hemolyzed per giulia; Complete eb Time: 15:59 EC:24 Rate is 76 beats/min. Rhythm is irregularly irregular. QRS [place] is Normal. QRS interval ms3 is normal. QT interval is normal. Clinical impression: Atrial Fibrillation. Interpreted by me. Reviewed by me. Administered Medications: 16:49 Drug: Furosemide IVP 40 mg IVP once; give over 2 minutes Route: IVP; Site: left iw antecubital; Disposition Summary: 03/05/23 16:52 Hospitalization Ordered Notes: Hospitalization Status: Inpatient Admission ms3 Provider: Rakesh John ms3 Location: Telemetry/MedSurg (Inpatient) ms3 Condition: Stable ms3 Problem: new ms3 Symptoms: are unchanged ms3 Bed/Room Type: Standard ms3 Room Assignment: 407(03/05/23 20:01) cg Diagnosis - Heart failure, unspecified ms3 - Acute pulmonary edema ms3 - Essential (primary) hypertension ms3 - Pleural effusion, not elsewhere classified ms3 Forms: - Medication Reconciliation Form ms3 - SBAR form ms3 - Leadership Thank You Letter ms3 Signatures: Dispatcher [employer] Sarah West RN RN iw Garcia, Cindy, RN RN Colleen Nunez Lynsay, RN RN ll1 Marck Noriega DO DO ms3 Corrections: (The following items were deleted from the chart) 20:01 16:52 ms3 cg
[2023-03-05 17:25] LABS: Absolute Lymphocytes (CBC) 0.5 K/uL (0.7-4.9); Hematocrit 29.4 % (36.0-45.0); Lymphocytes % 8.4 % (15.3-44.8); MCV 76.9 fL (80-100); MPV 8.4 fL (7.6-11.3); Platelets 298 thou/uL (152-406); RBC Red Blood Cell Count 3.82 M/uL (3.86-4.86)
--- NOTE | 2023-03-05 18:09 | P.HP ---
Certification for Inpatient Patient admitted to: Inpatient With expected LOS: <2 Midnights Patient will require the following post-hospital care: None Practitioner: I am a practitioner with admitting privileges, knowledge of patient current condition, hospital course, and medical plan of care. Services: Services provided to patient in accordance with Admission requirements found in Title 42 Section 412.3 of the Code of Federal Regulations Patient History Date of Service: 03/05/23 Reason for admission: Shortness of breath History of Present Illness: 82-year-old female with a past medical history congestive heart failure, hypertension, insulin-dependent diabetes mellitus, presents to the emergency room for shortness of breath. She reports shortness of breath worse over last week. Was referred from cardiology office. Patient reports shortness of breath that is worse with exertion. Reports associated bilateral lower extremity swelling Worse over the last week. She denies chest pain, palpitations, nausea vomiting diarrhea, cough, fever or chills. Plan to admit for acute on chronic heart failure, pulmonary edema, ER evaluation EKG atrial fibrillation Rate is 76 beats/min. Rhythm is irregularly irregular. QRS [place] is Normal. QRS interval is normal. QT interval is normal. Atrial fibrillation. Blood pressure 6 BP 145 / 59; Pulse 72; Resp 16; Temp 97.8(O); Pulse Ox 97% on R/A; Weight 68.04 kg; ll1 Height 5 ft. 6 in. ; Pain 0/10; ER evaluation no leukocytosis microcytic anemia 9.1, 29.4, elevated neutrophils 80.2, WBCs normal, acute kidney injury BUN 22 creatinine 1.06, unknown baseline, blood glucose 151, hypoalbumin 1.6, chest x- ray Allergies No Known Allergies Allergy (Verified 02/15/22 07:22) Home Medications: Atorvastatin Calcium [Lipitor*] 10 mg PO DAILY 03/31/22 Folic Acid 1 mg PO DAILY 03/31/22 Furosemide [Lasix] 40 mg PO DAILY 03/31/22 Hydralazine [Apresoline*] 25 mg PO DAILY 03/31/22 Metoprolol Tartrate 50 mg PO DAILY 03/31/22 Ramipril [Altace] 10 mg PO DAILY 03/31/22 carvediloL [Coreg*] 3.125 mg PO BID 6AM 6PM tab 04/07/22 Acetaminophen [Tylenol*] 650 mg PO Q4H PRN tab 04/14/22 Amlodipine [Norvasc*] 5 mg PO BID #60 tab 04/14/22 Atorvastatin Calcium [Lipitor*] 10 mg PO BEDTIME tab 04/14/22 Rivaroxaban [Xarelto*] 10 mg PO DAILY 30 Days #21 tab 04/14/22 Tresiba Flextouch U-200 26 units SQ DAILY #0 04/14/22 carvediloL [Coreg*] 3.125 mg PO BID 6AM 6PM tab 04/14/22 - Past Medical/Surgical History Diabetic: Yes -: IDDM2 -: HTN -: congestive heart failure -: gall bladder removed - Social History Smoking Status: Never smoker Alcohol use: Yes CD- Drugs: No Caffeine use: Yes Place of Residence: Home Review of Systems 10-point ROS is otherwise unremarkable Physical Examination - Physical Exam General: Alert, In no apparent distress, Oriented x3, Mild distress HEENT: Atraumatic, Normocephalic, PERRLA Neck: Supple, 2+ carotid pulse no bruit Respiratory: Normal air movement, Diminished Cardiovascular: Irregular heart rate/rhythm Capillary refill: <2 Seconds Gastrointestinal: Normal bowel sounds, Soft and benign Musculoskeletal: No clubbing, No swelling Integumentary: Erythema, Other (B)LE edema +3/4, venous stasis) Neurological: Normal speech, Normal strength at 5/5 x4 extr, Sensation intact - Studies Laboratory Data (last 24 hrs) 03/05/23 03/05/23 15:58 15:58 WBC 6.30 Hgb 9.1 L Hct 29.4 L Plt Count 298 Sodium 144 Potassium 3.9 BUN 22 H Creatinine 1.06 H Glucose 151 H Magnesium 1.3 L Total Bilirubin 0.3 AST 10 L ALT < 10 L Alkaline Phosphatase 106 Assessment and Plan - Plan Assessment and plan Atrial fibrillation RVR controlled rate 76 Acute on chronic heart failure-unknown baseline, acute pulmonary edema-acute microcytic anemia 9.1, 29.4 acute kidney injury BUN 22 creatinine 1.06, hypertension insulin-dependent diabetes mellitus Assessment and plan Atrial fibrillation RVR controlled rate 76 Acute on chronic heart failure pulmonary edema Cardiology consult, telemetry, BNP, troponin, Resume appropriate home meds, diuresis, daily weight, I&O, BNP 58667, troponin normal 26.8 Chest x-ray Mild bilateral pulmonary edema pattern seen. Vague nodular opacity is present in the right upper lobe as well. Moderate to large left pleural effusion noted. Heart is mildly enlarged in size. -EKG atrial fibrillation Rate is 76 beats/min. Rhythm is irregularly irregular. QRS [place] is Normal. QRS interval is normal. QT interval is normal. Atrial fibrillation. Blood pressure 6 BP 145 / 59; Pulse 72; Resp 16; Temp 97.8( -Echo 03/31/2022 1. NO MITRAL VALVE PROLAPSE. 2. LEFT VENTRICULAR EJECTION FRACTION 42%. 3. MILD TO MODERATE HYPOKINESIS. 4. LARGE LEFT PLEURAL EFFUSION. Prior thoracentesis 04/06/2022 IMPRESSION: Ultrasound-guided left thoracentesis was performed as detailed. Approximately 750 mL of pleural fluid removed. microcytic anemia Microcytic anemia 9.1, 29.4 Trend H&H acute kidney injury BUN 22 creatinine 1.06, hypertension insulin-dependent diabetes mellitus Resume appropriate home meds Sliding scale insulin, Accu-Cheks Cardiac diet Full code DVT heparin Discharge Plan: Home Plan to discharge in: 48 Hours - Advance Directives Does patient have a Living Will: Yes Does patient have a Durable POA for Healthcare: No - Code Status/Comfort Care Code Status: Full Code Critical Care: No Time Spent Managing Pts Care (In Minutes): 50
[2023-03-05] MEDS ORDERED: METOPROLOL TARTRATE 5 MG/5 ML INJ IV PRN (18:59)
[2023-03-05 20:22] LABS: Platelet Estimate ADEQ; White Blood Cell Scan OK (OK)
[2023-03-05 20:23] LABS: Anisocytosis 1+; Blood Morphology Comment NOTED (NOT SEEN); Poikilocytosis 1+
[2023-03-05] MEDS ORDERED: GLUCAGON 1 MG/VIAL IM PRN (20:42)
[2023-03-05] MEDS ORDERED: D50W 25 GM/50 ML SYRINGE IV PRN (20:42)
[2023-03-05] MEDS: INSULIN REGULAR (HUMAN) 100 UNIT/ML SQ SCH (21:00)
[2023-03-05] MEDS ORDERED: D10W 125 ML IV PRN ×2 (21:30→21:34)
[2023-03-05] MEDS: ATORVASTATIN 10 MG TAB PO SCH (22:11)
[2023-03-05 22:42] LABS: Troponin High Sensitivity 26.5 pg/mL (<58.9)
[2023-03-06] MEDS: HEPARIN 5000 UNIT/ML 1 ML VIAL SQ SCH ×3 (00:16→16:28)
[2023-03-06] MEDS: carvediloL 3.125 MG TAB PO SCH ×2 (05:56→17:11)
[2023-03-06 06:34] LABS: Absolute Lymphocytes (CBC) 0.6 K/uL (0.7-4.9); Hematocrit 28.4 % (36.0-45.0); Lymphocytes % 15.6 % (15.3-44.8); MCV 76.8 fL (80-100); MPV 8.2 fL (7.6-11.3); Platelets 318 thou/uL (152-406)
[2023-03-06 06:55] LABS: Magnesium 1.4 mg/dL (1.6-2.4); Potassium 3.6 mEq/L (3.5-5.1); Troponin High Sensitivity 27.8 pg/mL (<58.9)
[2023-03-06] MEDS: INSULIN REGULAR (HUMAN) 100 UNIT/ML SQ SCH ×4 (07:30→20:08)
[2023-03-06] MEDS ORDERED: Magnesium Sulfate 2gm IVPB 2 G/50 ML BAG IV ONE ×3 (08:00→18:21)
[2023-03-06] MEDS ORDERED: POTASSIUM CL SA 10 MEQ TAB PO ONE (09:00)
[2023-03-06] MEDS ORDERED: FUROSEMIDE 40 MG TABLET PO SCH (09:00)
[2023-03-06] MEDS ORDERED: METOPROLOL TAR 50 MG TAB PO SCH (09:00)
--- NOTE | 2023-03-06 11:21 | EKG ---
Test Date: 2023-03-05 Test Time: 15:44:00 Steam Presser: TYREL MEASUREMENT RESULTS: Intervals: Rate: 76 CO: QRSD: 80 QT: 362 QTc: 407 Rickman: P: CO: QRS: 83 T: 129 INTERPRETIVE STATEMENTS: Atrial fibrillation Nonspecific ST and T wave abnormality Abnormal ECG Compared to ECG 02/28/1994 11:32:00 ST (T wave) deviation now present Sinus rhythm no longer present Electronically Signed On 03-06-23 11:18:38 CDT by Fredi Gr
--- NOTE | 2023-03-06 14:17 | CON ---
Date of Consultation: 03/06/2023 Reason For Consultation: CHF exacerbation. History Of Present Illness: 82-year-old female, history of systolic heart failure, hypertension, lisa darshan, presented with significant shortness of breath at rest even with orthopnea and significant meghna ma involving her lower extremities all the way to her abdominal wall and upper extremities. She has anasarca all over. Since admission, she was started on Lasix and she lost significant amount of flui ds and she is feeling much better. Past Medical History: As outlined above in the HPI. Medications: Refer to reconciliation sheet for detailed list. Allergies: NO KNOWN DRUG ALLERGIES. Family History: No premature coronary artery disease or cancer. Social History: She does not smoke or drink. Does not use any drugs. Review of Systems: All systems reviewed and they were negative except what mentioned in the HPI. Physical Examination: Vital Signs: Reviewed. Head and Neck: Pupils are equal, reactive to light. Intact eye movements. No JVD. No cervical lym phadenopathy. Neck is supple. Thyroid is not enlarged. Lungs: Clear to auscultation bilaterally. No rhonchi, wheezing, or crackles. No accessory muscle u se. Heart: Regular rate and rhythm. No extra sounds. Abdomen: Soft, nontender. Bowel sounds positive. No organomegaly. No masses or hernia. No rigidi ty or rebound. Extremities: No clubbing or cyanosis. There is massive edema involving lower extremities, upper ext remities, and all the way to the abdominal wall. Neurological: Alert, awake, oriented x3. No acute focal deficits appreciated. Investigations: BUN is 21, creatinine is 0.98. Assessment And Recommendations: 1.Acute on chronic systolic heart failure exacerbation with massive anasarca. She was placed by the hospitalist and nurse practitioner on Lasix orally at 40 mg which she was on as an outpatient, but o n the IV Lasix, the first dose, she diuresed significantly. We will switch Lasix to 40 mg IV q.12 ho urs. Monitor BUN, creatinine, electrolytes. Repeat basic metabolic panel later tonight. Strict low -salt diet and monitor in and output and DVT prophylaxis to be continued. 2.Dyslipidemia. Continue statin. 3.Hypertension. Blood pressure will improve further with diuresis. SR/MODL Voice ID: [id number] Report ID: [id number]
[2023-03-06] MEDS: FUROSEMIDE 40 MG/4 ML VIAL IV SCH (16:27)
--- NOTE | 2023-03-06 18:25 | P.PN ---
Subjective Date of Service: 03/06/23 Chief Complaint: Shortness of breath Patient states she feels much better today. She has been stable on room air. Bilateral lower extremity swelling is improving. Physical Examination - Vital Signs Temperature: 97.8 F Blood Pressure: 126/61 Pulse: 68 Respirations: 18 Pulse Ox (%): 94 - Studies Laboratory Data (last 24 hrs) 03/05/23 15:58 WBC 6.30 Hgb 9.1 L Hct 29.4 L Plt Count 298 Assessment And Plan - Plan Physical Exam General: Alert, In no apparent distress, Oriented x3 Neck: Supple, no elevated JVD. Respiratory: Normal air movement, mild bibasilar crackles. Cardiovascular: Irregular heart rate/rhythm, bilateral lower extremity edema. Gastrointestinal: Normal bowel sounds, Soft and benign Musculoskeletal: No clubbing, No swelling Integumentary: Bilateral lower extremity venous stasis dermatitis. Neurological: Normal speech, no focal motor deficit. Diagnosis Atrial fibrillation RVR. Acute on chronic systolic heart failure Microcytic anemia 9.1, 29.4 Essential hypertension insulin-dependent diabetes mellitus Plan Atrial fibrillation RVR controlled rate 76 Acute on chronic heart failure pulmonary edema Patient diuresed well with IV Lasix from yesterday Continue diuresis with IV Lasix Cardiology input appreciated. Continue Coreg and titrate for A-fib rate control. PT consult for mobilization. Monitor renal function with diuresis. Microcytic anemia Microcytic anemia 9.1, 29.4 Trend H&H Hypertension insulin-dependent diabetes mellitus Continue home medications Sliding scale insulin for glucose management. Cardiac diet Full code DVT heparin
[2023-03-06] MEDS: ATORVASTATIN 10 MG TAB PO SCH (20:08)
[2023-03-07] MEDS: HEPARIN 5000 UNIT/ML 1 ML VIAL SQ SCH ×3 (00:35→17:02)
[2023-03-07] MEDS: carvediloL 3.125 MG TAB PO SCH ×2 (05:27→17:02)
[2023-03-07 07:20] LABS: Absolute Lymphocytes (CBC) 0.4 K/uL (0.7-4.9); Hematocrit 30.3 % (36.0-45.0); Lymphocytes % 9.2 % (15.3-44.8); MCV 77.3 fL (80-100); MPV 8.4 fL (7.6-11.3); Platelets 276 thou/uL (152-406); RBC Red Blood Cell Count 3.92 M/uL (3.86-4.86)
[2023-03-07] MEDS: INSULIN REGULAR (HUMAN) 100 UNIT/ML SQ SCH ×4 (07:30→21:00)
[2023-03-07 07:44] LABS: Magnesium 1.9 mg/dL (1.6-2.4); Potassium 3.7 mEq/L (3.5-5.1)
[2023-03-07] MEDS: FUROSEMIDE 40 MG/4 ML VIAL IV SCH ×2 (09:41→17:02)
--- NOTE | 2023-03-07 15:29 | P.PN ---
Subjective Date of Service: 03/07/23 Chief Complaint: Shortness of breath Patient denies any complaint today She has been stable on room air. Bilateral lower extremity swelling significantly improved from yesterday. Good diuresis with the IV Lasix Physical Examination - Vital Signs Temperature: 97.1 F Blood Pressure: 126/64 Pulse: 62 Respirations: 16 Pulse Ox (%): 92 Assessment And Plan - Plan Physical Exam General: Alert, In no apparent distress, Oriented x3 Neck: Supple, no elevated JVD. Respiratory: Normal air movement, mild bibasilar crackles. Cardiovascular: Irregular heart rate/rhythm, bilateral lower extremity edema and anasarca significantly improved Gastrointestinal: Normal bowel sounds, Soft and benign Musculoskeletal: No clubbing, No swelling Integumentary: Bilateral lower extremity venous stasis dermatitis. Neurological: Normal speech, no focal motor deficit. Diagnosis Atrial fibrillation RVR. Acute on chronic systolic heart failure Microcytic anemia 9.1, 29.4 Essential hypertension insulin-dependent diabetes mellitus Plan Atrial fibrillation RVR controlled rate 76 Acute on chronic heart failure pulmonary edema Patient diuresed well with IV Lasix Continue diuresis with IV Lasix Cardiology input appreciated. Continue Coreg and titrate for A-fib rate control. Patient ambulated with a walker today. She was independent prior to admit. Renal function has been stable with IV Lasix. Microcytic anemia Microcytic anemia 9.1, 29.4 Trend H&H Hypertension insulin-dependent diabetes mellitus Continue home medications Sliding scale insulin for glucose management. Cardiac diet Full code DVT heparin
--- NOTE | 2023-03-07 15:44 | PN ---
Date of Progress Note: 03/07/2023 Subjective: Seen by bedside. She has continued to diurese very well, feeling much better. Review of Systems: No chest pain. Has still shortness of breath on exertion with mild orthopnea and lower extremity meghna ma. No nausea, vomiting, or diarrhea. All other systems were reviewed, they were negative. Objective: Vital Signs: Reviewed. Head and Neck: Pupils are equal, reactive to light. Intact eye movements. No JVD. No cervical lym phadenopathy. Neck is supple. Thyroid is not enlarged. Lungs: Clear to auscultation bilaterally. No rhonchi, wheezing, or crackles. No accessory muscle u se. Heart: Irregular. No extra sounds. Abdomen: Soft, nontender. Bowel sounds positive. No organomegaly. No masses or hernia. No rigidi ty or rebound. Extremities: 1 to 2+ edema with significant improvement. Neurologic: Alert, awake, oriented x3. No acute focal deficits appreciated. Investigations: Labs were reviewed. Assessment And Recommendations: 1.Acute on chronic systolic heart failure exacerbation, improving very well. Continue IV diuresis f or at least 1 more day. Monitor BUN, creatinine, electrolytes. 2.Dyslipidemia. Continue statin. 3.Hypertension. Blood pressure is much better after diuresis. Probably she can be switched to oral Lasix tomorrow and preparation for discharge. SR/MODL Voice ID: [id number] Report ID: [id number]
[2023-03-07] MEDS: ATORVASTATIN 10 MG TAB PO SCH (21:28)
[2023-03-08 01:34] VITALS: BMI 30.2
[2023-03-08] MEDS: HEPARIN 5000 UNIT/ML 1 ML VIAL SQ SCH ×2 (03:14→10:07)
[2023-03-08] MEDS: carvediloL 3.125 MG TAB PO SCH (06:10)
[2023-03-08] MEDS: INSULIN REGULAR (HUMAN) 100 UNIT/ML SQ SCH ×2 (07:30→11:30)
[2023-03-08 09:26] VITALS: BP 149/64; TEMP 97
[2023-03-08 09:33] LABS: Absolute Lymphocytes (CBC) 0.5 K/uL (0.7-4.9); Lymphocytes % 8.7 % (15.3-44.8); MCV 77.6 fL (80-100); MPV 8.4 fL (7.6-11.3); Platelets 302 thou/uL (152-406); RBC Red Blood Cell Count 4.25 M/uL (3.86-4.86)
[2023-03-08 09:54] LABS: Magnesium 1.6 mg/dL (1.6-2.4)
[2023-03-08] MEDS: FUROSEMIDE 40 MG/4 ML VIAL IV SCH (10:08)
--- NOTE | 2023-03-08 10:19 | P.DS ---
Admission Date: 03/05/23 Discharge Date: 03/08/23 Disposition: ID HOME/HOME HEALTH CARE Discharge Condition: FAIR Reason for Admission: Shortness of breath Brief History of Present Illness: 82-year-old female with a past medical history congestive heart failure, hypertension, insulin-dependent diabetes mellitus, presented to the emergency room for shortness of breath. She reported shortness of breath worse over 1 week. Was referred from cardiology office. Patient reported shortness of breath that is worse with exertion. Reports associated bilateral lower extremity swelling worse over 1 week. She denied chest pain, palpitations, nausea vomiting diarrhea, cough, fever or chills. ER evaluation EKG atrial fibrillation Rate is 76 beats/min. Rhythm is irregularly irregular. QRS [place] is Normal. QRS interval is normal. QT interval is normal. Atrial fibrillation. Blood pressure 6 BP 145 / 59; Pulse 72; Resp 16; Temp 97.8(O); Pulse Ox 97% on R/A; Weight 68.04 kg; ll1 Height 5 ft. 6 in. ; Pain 0/10; ER evaluation no leukocytosis microcytic anemia 9.1, 29.4, elevated neutrophils 80.2, WBCs normal, acute kidney injury BUN 22 creatinine 1.06, unknown baseline, blood glucose 151, hypoalbumin 1.6, chest x-ray Hospital Course: Diagnosis Atrial fibrillation RVR. Acute on chronic systolic heart failure Microcytic anemia 9.1, 29.4 Essential hypertension insulin-dependent diabetes mellitus Patient admitted to the medical floor and the following medical problems addressed: Atrial fibrillation RVR controlled rate 76 Acute on chronic heart failure pulmonary edema Patient diuresed well with IV Lasix. Lower extremity edema almost resolved. She is stable on room air. IV Lasix transition to oral Lasix 40 mg twice daily on discharge. Patient seen and evaluated by cardiology Dr. Gr. Continued Coreg and titrate to 6.25 mg twice daily Patient ambulated with a walker today. She was independent prior to admit. Renal function has been stable with IV Lasix. Microcytic anemia Microcytic anemia 9.1, 29.4 Trend H&H Hypertension insulin-dependent diabetes mellitus Continued home medications Sliding scale insulin used for glucose management. Vital Signs/Physical Exam: Temp Pulse Resp BP Pulse Ox 97.0 F 66 16 149/64 H 94 03/08/23 08:00 03/08/23 08:00 03/08/23 08:00 03/08/23 08:00 03/08/23 08:00 General: Alert, In no apparent distress, Oriented x3 HEENT: Mucous membr. moist/pink Neck: JVD not distended Respiratory: Clear to auscultation bilaterally, Normal air movement Cardiovascular: Normal S1 S2, Edema (Bilateral lower extremity edema significantly improved), Irregular heart rate/rhythm Gastrointestinal: Normal bowel sounds, Soft and benign, Non-distended, No tenderness Musculoskeletal: Swelling (Mild lower extremity swelling) Integumentary: Other (Bilateral lower extremity venous stasis dermatitis) Neurological: Normal speech, Normal strength at 5/5 x4 extr Laboratory Data at Discharge: WBC 5.30 thou/uL (4.3-10.9) 03/08/23 08:59 Hgb 10.0 g/dL (12.0-15.0) L 03/08/23 08:59 Hct 33.0 % (36.0-45.0) L 03/08/23 08:59 Plt Count 302 thou/uL (152-406) 03/08/23 08:59 Sodium 143 mEq/L (136-145) 03/08/23 08:59 Potassium 4.0 mEq/L (3.5-5.1) 03/08/23 08:59 BUN 23 mg/dL (7-18) H 03/08/23 08:59 Creatinine 1.17 mg/dL (0.55-1.02) H 03/08/23 08:59 Glucose 189 mg/dL (74-106) H 03/08/23 08:59 Magnesium 1.6 mg/dL (1.6-2.4) 03/08/23 08:59 Total Bilirubin 0.3 mg/dL (0.2-1.0) 03/05/23 15:58 AST 10 U/L (15-37) L 03/05/23 15:58 ALT < 10 U/L (13-56) L 03/05/23 15:58 Alkaline Phosphatase 106 U/L (45-117) 03/05/23 15:58 Home Medications: Atorvastatin Calcium [Lipitor*] 10 mg PO DAILY 03/31/22 Folic Acid 1 mg PO DAILY 03/31/22 Hydralazine [Apresoline*] 25 mg PO DAILY 03/31/22 Ramipril [Altace] 10 mg PO DAILY 03/31/22 carvediloL [Coreg*] 3.125 mg PO BID 6AM 6PM tab 04/07/22 Acetaminophen [Tylenol*] 650 mg PO Q4H PRN tab 04/14/22 Amlodipine [Norvasc*] 5 mg PO BID #60 tab 04/14/22 Atorvastatin Calcium [Lipitor*] 10 mg PO BEDTIME tab 04/14/22 Rivaroxaban [Xarelto*] 10 mg PO DAILY 30 Days #21 tab 04/14/22 Tresiba Flextouch U-200 26 units SQ DAILY #0 04/14/22 Furosemide [Lasix] 40 mg PO BID #60 tab 03/08/23 carvediloL [Coreg] 12.5 mg PO BID #60 tab 03/08/23 New Medications: carvediloL [Coreg] 12.5 mg PO BID #60 tab Furosemide [Lasix] 40 mg PO BID #60 tab Diet: ADA Activity: Fall precautions Followup: [place] Escobar DO, DO [Primary Care Provider] - 1-2 Weeks Fredi Gr MD [ACTIVE - CAN ADMIT] - (Within 1 month.) Time spent managing pt's care (in minutes): 33
[2023-03-08] MEDS ORDERED: MAGNESIUM SULFATE 1 gm IVPB 1 GM/100 ML BAG IV ONE (11:37)
[2023-03-08 14:26] VITALS: O2SAT 94
--- NOTE | 2023-03-08 16:23 | PN ---
Date of Progress Note: 03/08/2023 Subjective: Seen by bedside. She is doing much better. Appears to be euvolemic. Review of Systems: No chest pain, shortness of breath, orthopnea, or cough. No nausea, vomiting, or diarrhea. All othe r systems were reviewed, they were negative. Objective: Vital Signs: Reviewed. Head and Neck: Pupils are equal, reactive to light. Intact eye movements. No JVD. No cervical lym phadenopathy. Neck is supple. Thyroid is not enlarged. Lungs: Clear to auscultation bilaterally. No rhonchi, wheezing, or crackles. No accessory muscle u se. Heart: Irregularly irregular. No extra sounds. Abdomen: Soft, nontender. Bowel sounds positive. No organomegaly. No masses or hernia. No rigidi ty or rebound. Extremities: No clubbing, cyanosis. No edema. Neurologic: Alert, awake, oriented x3. No acute focal deficits appreciated. Investigations: Labs were reviewed. Assessment And Recommendations: 1.Acute on chronic systolic heart failure exacerbation, significant improvement. Switched to oral L asix and discharged and follow up with me in the office in 1 week. 2.Dyslipidemia. Continue statin. 3.Hypertension. Blood pressure is controlled. Cardiology will sign off. SR/MODL Voice ID: [id number] Report ID: [id number]
== END 2023-03-08 15:00 | disposition home or self-care (01) | DRG 291 ==
LOC: ER 14:19 → ERHOLD 18:15 → 4TH 20:35
PROVIDERS: ADMIT Internal Medicine; ATTEND Internal Medicine
DX: I11.0 Hypertensive heart disease with heart failure (principal); I50.23 Acute on chronic systolic (congestive) heart failure; N17.9 Acute kidney failure, unspecified; E11.65 Type 2 diabetes mellitus with hyperglycemia; I48.91 Unspecified atrial fibrillation; E78.5 Hyperlipidemia, unspecified; I87.8 Other specified disorders of veins; D50.9 Iron deficiency anemia, unspecified; Z79.4 Long term (current) use of insulin; Z79.02 Long term (current) use of antithrombotics/antiplatelets; Z90.49 Acquired absence of other specified parts of digestive tract; Z87.891 Personal history of nicotine dependence
CPT/HCPCS: 36415; 71045; 80048; 80076; 82947; 83735; 83880; 84484; 85025; 93005; 96374; 97116; 97161; 97530; 99285; J1644; J1815; J1940; J3475

== ENCOUNTER 2023-04-16 16:59 | Emergency (ER) | payer OTHER ==
--- OUTSIDE RECORDS SUMMARY | 2023-04-16 17:02 | XMS REPORT | Continuity of Care Document ---
:1940 Author Organization [facility] t Address [address] [place] [id number] Care Team Providers Name Role Phone Unavailable Unavailable Unavailable Problems This patient has no known problems. Allergies, Adverse Reactions, Alerts This patient has no known allergies or adverse reactions. Medications This patient has no known medications. Procedures This patient has no known procedures. Encounters Start End Encounter Admission Attending Care Care Encounter Source Date/Time Date/Time Type Type Clinicians Facility Department ID 2022-07-19 Outpatient [facility] [id number] Common 10:33:03 [id number] [facility] 2022-06-12 Outpatient [facility] [id number] Common 10:47:06 [id number] [facility] Results This patient has no known results.
[2023-04-16 18:30] LABS: Magnesium 1.3 mg/dL (1.6-2.4); Potassium 4.1 mEq/L (3.5-5.1)
[2023-04-16 18:54] LABS: Absolute Lymphocytes (CBC) 0.6 K/uL (0.7-4.9); Lymphocytes % 9.2 % (15.3-44.8); MCV 74.7 fL (80-100); MPV 8.1 fL (7.6-11.3); Platelets 351 thou/uL (152-406); RBC Red Blood Cell Count 3.34 M/uL (3.86-4.86)
[2023-04-16] MEDS ORDERED: Magnesium Sulfate 2gm IVPB 2 G/50 ML BAG IV ONE (20:27)
[2023-04-16] MEDS ORDERED: CALCIUM GLUCONATE 1 GM IVPB 2 GM/100 ML BAG IV ONE (20:27)
--- NOTE | 2023-04-16 21:43 | EDPHYS ---
Physician Documentation [facility] Name: Keiko Rashid Age: 82 yrs Sex: Female : 1940 Arrival Date: 04/16/2023 Time: 16:59 Bed 20 Private MD: ED Physician Carson Andersen HPI: 04/16 17:20 This 82 yrs old Female presents to ER via Ambulatory with complaints of Abnormal Lab cp Results. 17:20 Patient is a 82-year-old female with past medical history significant for CHF, cp insulin-dependent diabetes and hypertension. Patient reports she received a call from the office of Dr. Gr who wanted patient to proceed to the emergency room for evaluation for abnormal labs that were drawn recently. Family reports that patient had low magnesium and also another abnormal electrolytes but they are unsure of which. Patient has no complaints at this time. Historical: - Allergies: 17:05 NKA; mb9 - Home Meds: 17:05 atorvastatin 10 mg Oral tab 1 tab once daily [Active]; furosemide 20 mg Oral tab 1 tab mb9 once daily [Active]; ramipril 10 mg Oral cap 1 cap once daily [Active]; folic acid 1 mg Oral tab 1 tab once daily [Active]; Tresiba 56 units once a day [Active]; - PMHx: 17:05 Congestive heart failure; Diabetes - IDDM; diabetes mellitus; Hypertension; mb9 - PSHx: 17:05 None; mb9 - Immunization history:: Adult Immunizations up to date. - Social history:: Smoking status: Patient denies any tobacco usage or history of. ROS: 17:25 All other systems are negative, cp Exam: 17:30 Constitutional: The patient appears in no acute distress, alert, awake, comfortable, cp non-diaphoretic, non-toxic, well developed, well nourished, 17:30 Head/Face: Normocephalic, atraumatic. cp 17:30 Eyes: Periorbital structures: appear normal, Conjunctiva: normal, no exudate, no injection, Sclera: no appreciated abnormality, Lids and lashes: appear normal, bilaterally, 17:30 ENT: External ear(s): are unremarkable, Nose: is normal, Mouth: Lips: moist, Oral mucosa: pink and intact, moist, Posterior pharynx: is normal, airway is patent, no erythema, no exudate, 17:30 Neck: ROM/movement: is normal, is supple, without pain, no range of motions limitations, 17:30 Chest/axilla: Inspection: normal, 17:30 Cardiovascular: Rate: normal, Rhythm: regular, Edema: ankle edema, that is moderate, JVD: is not appreciated, 17:30 Respiratory: the patient does not display signs of respiratory distress, Respirations: normal, no use of accessory muscles, no retractions, labored breathing, is not present, Breath sounds: are clear throughout, no decreased breath sounds, no stridor, no wheezing, 17:30 Abdomen/GI: Inspection: abdomen appears normal, Palpation: abdomen is soft and non-tender, in all quadrants, 17:30 Skin: no rash present. 17:30 Neuro: Orientation: to person, place \T\ time. Mentation: is normal, Motor: moves all fours, strength is normal, Sensation: is normal, 18:22 ECG was reviewed by the Attending Physician. Vital Signs: 17:04 BP 145 / 65; Pulse 81; Resp 18; Temp 98.2; Pulse Ox 97% on R/A; Weight 63.5 kg; Height mb9 5 ft. 6 in. ; Pain 0/10; 20:27 BP 127 / 53; Pulse 67; Resp 14; Pulse Ox 100% on 2 lpm NC; nj1 21:27 BP 130 / 56; Pulse 72; Resp 14; Pulse Ox 100% on 2 lpm NC; jb4 22:35 BP 129 / 70; Pulse 67; Resp 15; Pulse Ox 96% on R/A; jb4 17:04 Body Mass Index 22.60 (63.50 kg, 167.64 cm) mb9 17:04 Pain Scale: Adult mb9 MDM: 17:06 Patient medically screened. 18:00 Differential diagnosis: electrolyte abnormality, cardiac arrythmia. 21:41 Data reviewed: vital signs, nurses notes, lab test result(s), and as a result, I will cp discharge patient. 21:41 I considered the following discharge prescriptions or medication management in the emergency department Medications were administered in the Emergency Department. See MAR. Counseling: I had a detailed discussion with the patient and/or guardian regarding the historical points, exam findings, and any diagnostic results supporting the discharge/admit diagnosis, the need for outpatient follow up, a rf test engineer, to return to the emergency department if symptoms worsen or persist or if there are any questions or concerns that arise at home. 04/16 17:13 Order name: Basic Metabolic Panel; Complete Time: 19:05 cp 04/16 19:06 Interpretation: Normal except: CL 94; CO2 39; GLUC 127; BUN 47; CRE 1.45; GFR 36; CA cp 7.5. 04/16 17:13 Order name: CBC with Diff; Complete Time: 19:05 cp 04/16 19:06 Interpretation: Normal except: RBC 3.34; HGB 7.9; HCT 25.0; MCV 74.7; MCH 23.5; MCHC cp 31.5; RDW 19.9; MARCIA% 79.2; LYM% 9.2; LYMA 0.6. 04/16 17:13 Order name: Magnesium; Complete Time: 19:05 cp 04/16 19:10 Interpretation: Abnormal: MG 1.3. 04/16 17:13 Order name: EKG; Complete Time: 17:14 cp 04/16 17:13 Order name: EKG - Nurse/Tech; Complete Time: 18:16 cp 04/16 17:13 Order name: Cardiac monitoring; Complete Time: 20:07 cp 04/16 17:13 Order name: IV Saline Lock; Complete Time: 18:09 cp 04/16 17:13 Order name: Labs collected and sent; Complete Time: 18:09 cp 04/16 17:13 Order name: O2 Per Protocol; Complete Time: 19:38 cp 04/16 17:13 Order name: O2 Sat Monitoring; Complete Time: 19:38 cp EC:22 Rate is 70 beats/min. Rhythm is regular. [place] interval is normal. QRS interval is cp prolonged at 106 msec. QT interval is prolonged at 473 msec. T waves are Inverted in lead aVR. Interpreted by me. Reviewed by me. Administered Medications: 20:25 Drug: Magnesium Sulfate IVPB 2 grams IVPB once over 2 hrs Route: IVPB; Infused Over: 2 nj1 hrs; Site: left forearm; 20:25 Drug: Calcium Gluconate IVPB 2 grams IVPB once over 60 mins; (mix in NS 100 mL) Route: nj1 IVPB; Infused Over: 60 mins; Site: left forearm; Disposition: 04/17 20:23 Co-signature as Attending Physician, Carson Andersen MD I reviewed the patient's care rt provided by the Advanced Practice Provider and agree with the diagnosis and treatment plan. Disposition Summary: 04/16/23 21:42 Discharge Ordered Notes: Location: Home cp Problem: new cp Symptoms: have improved cp Condition: Stable cp Diagnosis - Hypomagnesemia cp - Hypocalcemia cp Followup: cp - With: Fredi Gr MD - When: 1 - 2 days - Reason: Recheck today's complaints Discharge Instructions: - Discharge Summary Sheet cp - Hypomagnesemia cp - Hypocalcemia, Adult cp Forms: - Medication Reconciliation Form cp - Thank You Letter cp - Antibiotic Education cp - Prescription Opioid Use cp - Patient Portal Instructions cp - Leadership Thank You Letter cp Signatures: Dispatcher [employer] EDMS Javad Reis PA PA cp Breneman, Mary Beth RN RN mb9 Carson Andersen MD MD rt Danisha Villa RN RN nj1
--- NOTE | 2023-04-16 21:43 | ER ---
Nurse's Notes [facility] Name: Keiko Rashid Age: 82 yrs Sex: Female : 1940 Arrival Date: 04/16/2023 Time: 16:59 Bed 20 Private MD: Diagnosis: Hypomagnesemia;Hypocalcemia Presentation: 04/16 17:04 Chief complaint: Patient states: "Dr. Fofana told us to come here due to abnormal mb9 electrolyte levels. We can't remember which ones." Pt denies pain. Coronavirus screen: Vaccine status: Patient reports receiving the 2nd dose of the covid vaccine. Ebola Screen: No symptoms or risks identified at this time. Initial Sepsis Screen: Does the patient meet any 2 criteria? No. Patient's initial sepsis screen is negative. Does the patient have a suspected source of infection? No. Patient's initial sepsis screen is negative. Risk Assessment: Do you want to hurt yourself or someone else? Patient reports no desire to harm self or others. Onset of symptoms was April 16, 2023. 17:04 Method Of Arrival: Ambulatory mb9 17:04 Acuity: GERRI 3 mb9 Triage Assessment: 17:06 General: Appears in no apparent distress. Behavior is calm, cooperative. Pain: Denies mb9 pain. EENT: No signs and/or symptoms were reported regarding the EENT system. Neuro: Herman Agitation-Sedation Scale (RASS): 0 - Alert and Calm Level of Consciousness is awake, alert, obeys commands, Oriented to person, place, time, situation, Appropriate for age. Cardiovascular: Patient's skin is warm and dry. Respiratory: Airway is patent Respiratory effort is even, unlabored, Respiratory pattern is regular, symmetrical. GI: No signs and/or symptoms were reported involving the gastrointestinal system. : No signs and/or symptoms were reported regarding the genitourinary system. Derm: Skin is pink, warm \\T\\ dry. Musculoskeletal: Range of motion: intact in all extremities. Historical: - Allergies: 17:05 NKA; mb9 - Home Meds: 17:05 atorvastatin 10 mg Oral tab 1 tab once daily [Active]; furosemide 20 mg Oral tab 1 tab mb9 once daily [Active]; ramipril 10 mg Oral cap 1 cap once daily [Active]; folic acid 1 mg Oral tab 1 tab once daily [Active]; Tresiba 56 units once a day [Active]; - PMHx: 17:05 Congestive heart failure; Diabetes - IDDM; diabetes mellitus; Hypertension; mb9 - PSHx: 17:05 None; mb9 - Immunization history:: Adult Immunizations up to date. - Social history:: Smoking status: Patient denies any tobacco usage or history of. Screenin:35 [facility] ED Fall Risk Assessment (Adult) History of falling in the last 3 months, jb4 including since admission No falls in past 3 months (0 pts) Confusion or Disorientation No (0 pts) Score/Fall Risk Level 0 - 2 = Low Risk Oriented to surroundings, Maintained a safe environment. Abuse screen: Denies threats or abuse. Nutritional screening: No deficits noted. Tuberculosis screening: No symptoms or risk factors identified. Assessment: 18:39 Reassessment: Patient appears in no apparent distress at this time. No changes from mb9 previously documented assessment. Patient and/or family updated on plan of care and expected duration. Pain level reassessed. Patient is alert, oriented x 3, equal unlabored respirations, skin warm/dry/pink. 21:27 Reassessment: Patient appears in no apparent distress at this time. Patient and/or jb4 family updated on plan of care and expected duration. Pain level reassessed. Patient is alert, oriented x 3, equal unlabored respirations, skin warm/dry/pink. Received report from JESSICA Raman. 22:35 Reassessment: Patient appears in no apparent distress at this time. Patient and/or jb4 family updated on plan of care and expected duration. Pain level reassessed. Patient is alert, oriented x 3, equal unlabored respirations, skin warm/dry/pink. Vital Signs: 17:04 BP 145 / 65; Pulse 81; Resp 18; Temp 98.2; Pulse Ox 97% on R/A; Weight 63.5 kg; Height mb9 5 ft. 6 in. ; Pain 0/10; 20:27 BP 127 / 53; Pulse 67; Resp 14; Pulse Ox 100% on 2 lpm NC; nj1 21:27 BP 130 / 56; Pulse 72; Resp 14; Pulse Ox 100% on 2 lpm NC; jb4 22:35 BP 129 / 70; Pulse 67; Resp 15; Pulse Ox 96% on R/A; jb4 17:04 Body Mass Index 22.60 (63.50 kg, 167.64 cm) mb9 17:04 Pain Scale: Adult mb9 ED Course: 17:01 Patient arrived in ED. mr 17:05 Triage completed. mb9 17:06 Javad Reis PA is PHCP. cp 17:06 Carson Andersen MD is Attending Physician. cp 17:06 Arm band placed on. mb9 18:09 Basic Metabolic Panel Sent. bc6 18:09 CBC with Diff Sent. bc6 18:09 Magnesium Sent. bc6 18:09 Inserted saline lock: 22 gauge in left forearm, using aseptic technique. Blood bc6 collected. 19:38 Danisha Villa, RN is Primary Nurse. nj1 21:25 Report given to Gurpreet LOPEZ. nj1 21:42 Fredi Gr MD is Referral Physician. cp 22:35 Patient has correct armband on for positive identification. Bed in low position. Call jb4 light in reach. Side rails up X 1. 22:35 No provider procedures requiring assistance completed. IV discontinued, intact, jb4 bleeding controlled, No redness/swelling at site. Pressure dressing applied. Administered Medications: 20:25 Drug: Magnesium Sulfate IVPB 2 grams IVPB once over 2 hrs Route: IVPB; Infused Over: 2 nj1 hrs; Site: left forearm; 20:25 Drug: Calcium Gluconate IVPB 2 grams IVPB once over 60 mins; (mix in NS 100 mL) Route: nj1 IVPB; Infused Over: 60 mins; Site: left forearm; Outcome: 21:42 Discharge ordered by MD. cp 22:35 Discharged to home via wheelchair, with family, jb4 22:35 Condition: stable 22:35 Discharge instructions given to patient, family, Instructed on discharge instructions, follow up and referral plans. Demonstrated understanding of instructions, follow-up care, 22:37 Patient left the ED. jb4 Signatures: Mar Gonzales, Reg Reg mr Javad Reis PA PA cp Bryson, James, RN RN jb4 Mar Trevizo RN RN mb9 Tiara Haynes bc6 Danisha Villa, JESSICA RN nj1 Corrections: (The following items were deleted from the chart) 21:27 21:27 Reassessment: Patient appears in no apparent distress at this time. Patient jb4 and/or family updated on plan of care and expected duration. Pain level reassessed. Patient is alert, oriented x 3, equal unlabored respirations, skin warm/dry/pink. jb4
[2023-04-16 23:08] VITALS: TEMP 98.2
[2023-04-16 23:12] VITALS: BP 129/70; O2SAT 96
--- NOTE | 2023-04-19 15:26 | EKG ---
Test Date: 2023-04-16 Test Time: 18:16:44 Research Consultant: PADMAJA MEASUREMENT RESULTS: Intervals: Rate: 70 IA: 194 QRSD: 106 QT: 438 QTc: 473 [place]: P: 106 IA: 194 QRS: 37 T: -19 INTERPRETIVE STATEMENTS: Sinus rhythm with marked sinus arrhythmia Prolonged QT Abnormal ECG Compared to ECG 03/05/2023 15:44:00 Prolonged QT interval now present Atrial fibrillation no longer present ST (T wave) deviation no longer present Electronically Signed On 04-19-23 15:15:07 [employer]CHITECT by Fredi Gr
== END 2023-04-16 22:37 | disposition home or self-care (01) ==
LOC: ER 16:59
DX: E83.42 Hypomagnesemia (principal); E83.51 Hypocalcemia; E11.9 Type 2 diabetes mellitus without complications; I11.0 Hypertensive heart disease with heart failure; I50.9 Heart failure, unspecified
CPT/HCPCS: 93005; 85025; 80048; 36415; 83735; 96375; 96374; 99284; J3475; J0612

== ENCOUNTER 2023-05-02 06:09 | Emergency (ER) | payer OTHER ==
--- OUTSIDE RECORDS SUMMARY | 2023-05-02 06:11 | XMS REPORT | Continuity of Care Document ---
Author Name Unknown Address [address] [facility] [address] [place] [address] [facility] thconnect Address [address] [facility] [address] [place] [address] Care Team Providers Care Rod Buster Helper Name Role Phone Unavailable Unavailable Unavailable Encounters Start Date/Time End Date/Time Encounter Type Admission Type Attending Clinicians Care Facility Care Department Encounter ID Source 2022-07-19 10:33:03 Outpatient [facility] [id number] [facility] 2022-06-12 10:47:06 Outpatient [facility] [id number] [facility]
[2023-05-02] MEDS ORDERED: ONDANSETRON 4 MG/2 ML VIAL ONE (07:28)
[2023-05-02] MEDS ORDERED: MORPHINE 4 MG/ML SYR ONE (07:28)
--- NOTE | 2023-05-02 07:33 | RAD REPORT ---
EXAM DESCRIPTION: RAD - Shoulder Right 2 View - 05/02/2023 7:27 am CLINICAL HISTORY: Right shoulder pain FINDINGS: Comminuted moderately displaced right humeral neck fracture with angulation present at fra cture site. No dislocation
--- NOTE | 2023-05-02 07:36 | RAD REPORT ---
EXAM DESCRIPTION: Briant Single View05/02/2023 7:28 am CLINICAL HISTORY: Chest pain COMPARISON: February 2023 FINDINGS: Comminuted moderately displaced right humeral neck fracture with angulation present at fracture site. This is better seen on a right shoulder x-ray same date No dislocation Left pleural effusion has decreased in size and is moderate with left basilar atelectasis. Pulmonary vascular congestion is present. Previously described nodular opacity right upper lobe appea rs diminished in size Mild to moderate cardiomegaly. Old left humeral fracture
--- NOTE | 2023-05-02 07:42 | ER ---
Nurse's Notes [facility] Name: Keiko Rashid Age: 82 yrs Sex: Female : 1940 Arrival Date: 05/02/2023 Time: 06:09 Bed 6 Private MD: Diagnosis: Acute right proximal humerus fracture with displacement Presentation: 05/02 06:21 Chief complaint: Patient states: "I was using the shower door to steady myself and it jw7 gave out, so I fell on my right shoulder, but I did not hit my head". Coronavirus screen: At this time, the client does not indicate any symptoms associated with coronavirus-19. Ebola Screen: No symptoms or risks identified at this time. 06:21 Method Of Arrival: EMS: [facility] jw7 06:21 Initial Sepsis Screen: Does the patient meet any 2 criteria? No. Patient's initial jw7 sepsis screen is negative. Does the patient have a suspected source of infection? No. Patient's initial sepsis screen is negative. Risk Assessment: Do you want to hurt yourself or someone else? Patient reports no desire to harm self or others. Onset of symptoms was May 02, 2023. 06:21 Acuity: GERRI 3 jw7 07:00 Care prior to arrival: Medication(s) given: 60 mcg Fentanyl. jw7 Triage Assessment: 06:33 General: Appears in no apparent distress. uncomfortable, Behavior is calm, cooperative. jw7 Pain: Complains of pain in Right Shoulder Pain does not radiate. Pain currently is 8 out of 10 on a pain scale. Quality of pain is described as sharp, stabbing, throbbing, Pain began suddenly, Is intermittent, Alleviated by medications, Aggravated by increased activity, repositioning. EENT: No deficits noted. No signs and/or symptoms were reported regarding the EENT system. Neuro: Herman Agitation-Sedation Scale (RASS): 0 - Alert and Calm Level of Consciousness is awake, alert, obeys commands, Oriented to person, place, time, situation. Cardiovascular: Capillary refill < 3 seconds Clubbing of nail beds is absent JVD is absent Patient's skin is warm and dry. Respiratory: Airway is patent Trachea midline Respiratory effort is even, unlabored, Respiratory pattern is regular, symmetrical. GI: Abdomen is flat, non-distended, Bowel sounds present X 4 quads. : No deficits noted. No signs and/or symptoms were reported regarding the genitourinary system. Derm: Skin is intact, is healthy with good turgor, Skin is dry, Skin is normal, Skin temperature is warm. Musculoskeletal: Range of motion: limited in right shoulder Reports pain in Right Shoulder. Injury Description: Deformity sustained to Right Shoulder. Historical: - Allergies: 06:33 NKA; jw7 - Home Meds: 06:33 atorvastatin 10 mg Oral tab 1 tab once daily [Active]; folic acid 1 mg Oral tab 1 tab jw7 once daily [Active]; furosemide 20 mg Oral tab 1 tab once daily [Active]; ramipril 10 mg Oral cap 1 cap once daily [Active]; Tresiba 56 units once a day [Active]; Insulin [Active]; - PMHx: 06:33 Congestive heart failure; Diabetes - IDDM; diabetes mellitus; Hypertension; jw7 - Immunization history:: Adult Immunizations up to date, Client reports receiving the 2nd dose of the Covid vaccine, Pneumococcal vaccine is up to date, Flu vaccine is up to date. - Social history:: Smoking status: Patient denies any tobacco usage or history of. Patient/guardian denies using alcohol, street drugs. - Family history:: not pertinent. Screenin:[address] [facility] ED Fall Risk Assessment (Adult) History of falling in the last 3 months, jw7 including since admission Yes- single mechanical fall (1 pt) Confusion or Disorientation No (0 pts) Intoxicated or Sedated No (0 pts) Impaired Gait Yes (1 pt) Mobility Assist Device Used No (0 pt) Altered Elimination No (0 pt) Score/Fall Risk Level 0 - 2 = Low Risk Oriented to surroundings, Maintained a safe environment. Abuse screen: Denies threats or abuse. Denies injuries from another. Nutritional screening: No deficits noted. Tuberculosis screening: No symptoms or risk factors identified. Assessment: 06:40 General: see Triage Assessment. jw7 07:17 General: Appears in no apparent distress. uncomfortable, Behavior is calm, cooperative, ld1 appropriate for age. Pain: Complains of pain in anterior aspect of right shoulder Pain does not radiate. Pain currently is 10 out of 10 on a pain scale. Quality of pain is described as heavy, pressure, throbbing, Pain began 1 hour ago. Is continuous. Neuro: Level of Consciousness is awake, alert, obeys commands, Oriented to person, place, time, situation. Cardiovascular: Capillary refill < 3 seconds Patient's skin is warm and dry. Respiratory: Airway is patent Respiratory effort is even, unlabored. GI: Abdomen is flat, non-distended. : No signs and/or symptoms were reported regarding the genitourinary system. EENT: No signs and/or symptoms were reported regarding the EENT system. Derm: No signs and/or symptoms reported regarding the dermatologic system. Musculoskeletal: Range of motion: limited in right shoulder Bony deformity noted of right shoulder. Vital Signs: 06:21 BP 150 / 57; Pulse 70; Resp 17 S; Temp 97.8; Pulse Ox 92% on R/A; Weight 64.41 kg; jw7 Height 5 ft. 5 in. ; Pain 8/10; 07:17 BP 143 / 53; Pulse 64; Resp 18; Pulse Ox 92% on R/A; Pain 10/10; ld1 08:16 BP 141 / 62; Pulse 71; Resp 18; Pulse Ox 99% on R/A; Pain 10/10; ld1 06:21 Body Mass Index 23.63 (64.41 kg, 165.1 cm) jw7 06:21 Pain Scale: Adult jw7 07:17 Pain Scale: Adult ld1 08:16 Pain Scale: Adult ld1 ED Course: 06:11 Patient arrived in ED. rv1 06:33 Triage completed. jw7 06:38 Patient has correct armband on for positive identification. Bed in low position. Call jw7 light in reach. Side rails up X2. Family accompanied patient. 06:38 Client placed on continuous cardiac and pulse oximetry monitoring. NIBP monitoring jw7 applied. 06:38 Maintain EMS IV. Dressing intact. Good blood return noted. Site clean \\T\\ dry. Gauge \\T\\ jw 7 site: 18g L Forearm. 06:40 Arm band placed on. jw7 06:44 Bob Mauro MD is Attending Physician. sp4 07:17 Nasima Noriega, JESSICA is Primary Nurse. ld1 07:17 COVID-19 SARS RT PCR Sent. ld1 07:17 No provider procedures requiring assistance completed. ld1 07:28 XRAY Chest (1 view) In Process Unspecified. EDMS 07:28 Shoulder Right (2 View) XRAY In Process Unspecified. EDMS 07:36 Basic Metabolic Panel Sent. ld1 07:36 COVID-19 SARS RT PCR Sent. ld1 07:36 CBC with Diff Sent. ld1 07:36 Type And Screen Sent. ld1 07:41 David Anderson MD is Referral Physician. sp4 08:16 IV discontinued, intact, bleeding controlled, No redness/swelling at site. ld1 Administered Medications: 07:17 Drug: morphine IVP or IV 4 mg IVP once over 4 mins Route: IVP; Infused Over: 4 mins; ld1 Site: left forearm; 07:17 Drug: Ondansetron IVP 4 mg IVP once; over 2 minutes Route: IVP; Site: left forearm; ld1 Medication: 07:17 VIS not applicable for this client. ld1 Outcome: 07:42 Discharge ordered by . sp4 08:16 Discharged to home via wheelchair, with family, ld1 08:16 Condition: stable 08:16 Discharge instructions given to patient, family, Instructed on discharge instructions, follow up and referral plans. medication usage, Demonstrated understanding of instructions, follow-up care, medications, Prescriptions given X 3, 08:17 Patient left the ED. ld1 Signatures: Dispatcher [employer] EDMS Nasima Noriega RN RN ld1 Jeannette Jacobs RN RN jonh7 Rosario Watson rv1 Bob Mauro MD MD sp4
--- NOTE | 2023-05-02 07:43 | EDPHYS ---
Physician Documentation [facility] Name: Keiko Rashid Age: 82 yrs Sex: Female : 1940 Arrival Date: 05/02/2023 Time: 06:09 Bed 6 Private MD: ED Physician Bob Mauro HPI: 05/02 06:44 This 82 yrs old Female presents to ER via EMS with complaints of Gen sp4 complaint. 06:49 PMH - Historical: Allergies: NKA; Home Meds: atorvastatin 10 mg Oral tab 1 tab once sp4 daily; furosemide 20 mg Oral tab 1 tab once daily; ramipril 10 mg Oral cap 1 cap once daily; folic acid 1 mg Oral tab 1 tab once daily; Tresiba 56 units once a day PMHx: 17:05 Congestive heart failure; Diabetes - IDDM; diabetes mellitus; Hypertension PSHx: None. 07:16 This is a very pleasant 82-year-old female presents with EMS for acute right shoulder sp4 injury with deformity. Patient fell down at home while on a trip to the bathroom. Sustained a right shoulder injury without any additional injury. Without LOC. Historical: - Allergies: 06:33 NKA; jw7 - Home Meds: 06:33 atorvastatin 10 mg Oral tab 1 tab once daily [Active]; folic acid 1 mg Oral tab 1 tab jw7 once daily [Active]; furosemide 20 mg Oral tab 1 tab once daily [Active]; ramipril 10 mg Oral cap 1 cap once daily [Active]; Tresiba 56 units once a day [Active]; Insulin [Active]; - PMHx: 06:33 Congestive heart failure; Diabetes - IDDM; diabetes mellitus; Hypertension; jw7 - Immunization history:: Adult Immunizations up to date, Client reports receiving the 2nd dose of the Covid vaccine, Pneumococcal vaccine is up to date, Flu vaccine is up to date. - Social history:: Smoking status: Patient denies any tobacco usage or history of. Patient/guardian denies using alcohol, street drugs. - Family history:: not pertinent. ROS: 07:16 Constitutional: Negative for fever, chills, and weight loss, that of right shoulder sp4 injury with deformity 07:16 All other systems are negative, Exam: 07:16 Constitutional: This is a well developed, well nourished patient who is awake, frail sp4 elderly female, right shoulder deformity Head/Face: Normocephalic, atraumatic. Eyes: Pupils equal round and reactive to light, extra-ocular motions intact. Lids and lashes normal. Conjunctiva and sclera are not injected. Cornea within normal limits. Periorbital areas with no swelling, redness, or edema. ENT: Nares patent. No nasal discharge, no septal abnormalities noted. Tympanic membranes are normal and external auditory canals are clear. Oropharynx with no redness, swelling, or masses, exudates, or evidence of obstruction, uvula midline. Mucous membranes moist. Neck: Trachea midline, no thyromegaly or masses palpated, and no cervical lymphadenopathy. Supple, full range of motion without nuchal rigidity, or vertebral point tenderness. Chest/axilla: Normal chest wall appearance and motion. Nontender with no deformity. No lesions are appreciated. Cardiovascular: Regular rate and rhythm with a normal S1 and S2. No gallops, murmurs, or rubs. Normal PMI, no JVD. No pulse deficits. Respiratory: Lungs have equal breath sounds bilaterally, clear to auscultation and percussion. No rales, rhonchi or wheezes noted. No increased work of breathing, no retractions or nasal flaring. Abdomen/GI: Soft, non-tender, with normal bowel sounds. No distension or tympany. No guarding or rebound. No evidence of tenderness throughout. Back: No spinal tenderness. No costovertebral tenderness. Skin: Warm, dry with normal turgor. Normal color with no rashes, no lesions, and no evidence of cellulitis. MS/ Extremity: Pulses equal, no cyanosis. Neurovascular intact. Right proximal shoulder deformity indicative of right proximal humerus fracture with skin dimpling, intact distal neurovascular status, preserved movement of the fingers, normal pulses distally Neuro: Awake and alert, GCS 15, oriented to person, place, time, and situation. Cranial nerves II-XII grossly intact. Motor strength 5/5 in all extremities. Sensory grossly intact. Psych: Awake, alert, with orientation to person, place and time. Behavior, mood, and affect are within normal limits Vital Signs: 06:21 BP 150 / 57; Pulse 70; Resp 17 S; Temp 97.8; Pulse Ox 92% on R/A; Weight 64.41 kg; jw7 Height 5 ft. 5 in. ; Pain 8/10; 07:17 BP 143 / 53; Pulse 64; Resp 18; Pulse Ox 92% on R/A; Pain 10/10; ld1 08:16 BP 141 / 62; Pulse 71; Resp 18; Pulse Ox 99% on R/A; Pain 10/10; ld1 06:21 Body Mass Index 23.63 (64.41 kg, 165.1 cm) jw7 06:21 Pain Scale: Adult jw7 07:17 Pain Scale: Adult ld1 08:16 Pain Scale: Adult ld1 MDM: 06:54 Patient medically screened. sp4 07:16 Differential Diagnosis altered mental status, sepsis, flu. Data reviewed: vital signs, sp4 nurses notes, EMS record, old medical records, lab test result(s), radiologic studies, plain films. Consideration of Admission/Observation Escalation of care including admission/observation considered. Transition of care: After a detail discussion of the patient's case, care is transferred to Marck Noriega DO. ED course: Patient is waiting on pain control and x-rays. Will pass patient's care to Dr. Acharya . 07:39 ED course: X ray - EXAM DESCRIPTION: RAD - Shoulder Right 2 View - 05/02/2023 7:27 am sp4 CLINICAL HISTORY: Right shoulder pain FINDINGS: Comminuted moderately displaced right humeral neck fracture with angulation present at fracture site. No dislocation. ED course: X ray - EXAM DESCRIPTION: RADChest Single View05/02/2023 7:28 am CLINICAL HISTORY: Chest pain COMPARISON: February 2023 FINDINGS: Comminuted moderately displaced right humeral neck fracture with angulation present at fracture site. This is better seen on a right shoulder x-ray same date No dislocation Left pleural effusion has decreased in size and is moderate with left basilar atelectasis. Pulmonary vascular congestion is present. Previously described nodular opacity right upper lobe appears diminished in size Mild to moderate cardiomegaly. Old left humeral fracture. 05/02 06:53 Order name: Basic Metabolic Panel; Complete Time: 20:06 sp4 05/02 06:53 Order name: CBC with Diff; Complete Time: 20:06 sp4 05/02 06:53 Order name: Type And Screen; Complete Time: 20:06 sp4 05/02 06:53 Order name: COVID-19 SARS RT PCR; Complete Time: 20:06 sp4 05/02 06:53 Order name: XRAY Chest (1 view); Complete Time: 20:06 sp4 05/02 06:54 Order name: Shoulder Right (2 View) XRAY; Complete Time: 20:06 sp4 05/02 06:53 Order name: Labs collected and sent; Complete Time: 07:36 sp4 05/02 06:53 Order name: NPO; Complete Time: 07:06 sp4 05/02 07:36 Order name: Sling; Complete Time: 08:16 sp4 Administered Medications: 07:17 Drug: morphine IVP or IV 4 mg IVP once over 4 mins Route: IVP; Infused Over: 4 mins; ld1 Site: left forearm; 07:17 Drug: Ondansetron IVP 4 mg IVP once; over 2 minutes Route: IVP; Site: left forearm; ld1 Disposition Summary: 05/02/23 07:42 Discharge Ordered Notes: Location: Home sp4 Problem: new sp4 Symptoms: have improved sp4 Condition: Stable sp4 Diagnosis - Acute right proximal humerus fracture with displacement sp4 Followup: sp4 - With: David Anderson MD - When: 2 - 3 days - Reason: Recheck today's complaints Discharge Instructions: - Discharge Summary Sheet sp4 - Humerus Fracture Treated With Immobilization, [id number] sp4 Forms: - Patient Portal Instructions sp4 Prescriptions: - methocarbamol 750 mg Oral tablet - take 1 tablet ORAL route every 6 hours PRN muscle sorness; 30 tablet; Refills: sp4 0, Product Selection Permitted - ondansetron 8 mg Oral Tablet,disintegrating - take 1 tablet ORAL route every 8 hours PRN nausea; 20 tablet; Refills: 0, sp4 Product Selection Permitted Signatures: Dispatcher [employer] Nasima Acharya RN RN ld1 Jeannette Jacobs RN RN jw7 Bob Mauro MD MD sp4
[2023-05-02 07:51] LABS: Absolute Lymphocytes (CBC) 0.3 K/uL (0.7-4.9); Hematocrit 24.5 % (36.0-45.0); Lymphocytes % 6.8 % (15.3-44.8); MPV 7.4 fL (7.6-11.3); Platelets 353 thou/uL (152-406); RBC Red Blood Cell Count 3.27 M/uL (3.86-4.86)
[2023-05-02 08:04] LABS: Potassium 3.6 mEq/L (3.5-5.1)
[2023-05-02 08:38] VITALS: TEMP 97.8
[2023-05-02 08:41] VITALS: BP 141/62; O2SAT 99
== END 2023-05-02 08:17 | disposition home or self-care (01) ==
LOC: ER 06:09
DX: S42.201A Unspecified fracture of upper end of right humerus, initial encounter for closed fracture (principal); W01.0XXA Fall on same level from slipping, tripping and stumbling without subsequent striking against object, initial encounter; Z11.52 Encounter for screening for COVID-19; E11.9 Type 2 diabetes mellitus without complications; Z79.4 Long term (current) use of insulin; I10 Essential (primary) hypertension; I50.9 Heart failure, unspecified
CPT/HCPCS: 85025; 80048; 36415; 86900; 86850; 86901; 87635; 71045; 73030; J2405

== ENCOUNTER → 2023-07-15 | Emergency (ER) | payer OTHER ==
[~2023-07-15] MED LIST: FENTANYL CITR 100 MCG/2 ML ONE; MORPHINE 2 MG/ML SYR ONE; MORPHINE 4 MG/ML SYR ONE; ONDANSETRON 4 MG/2 ML VIAL ONE
[2023-07-15 11:26] LABS: Absolute Lymphocytes (CBC) 0.3 K/uL (0.7-4.9); Hematocrit 26.2 % (36.0-45.0); Lymphocytes % 5.6 % (15.3-44.8); MCV 82.2 fL (80-100); MPV 8.5 fL (7.6-11.3); Platelets 269 thou/uL (152-406); RBC Red Blood Cell Count 3.19 M/uL (3.86-4.86)
[2023-07-15 11:27] LABS: Protime INR 1.29
[2023-07-15 11:54] LABS: Bilirubin Direct 0.2 mg/dL (0-0.2); Bilirubin Indirect, Calculated 0.1 mg/dL (0.2-0.8); Bilirubin Total 0.3 mg/dL (0.2-1.0); Magnesium 1.9 mg/dL (1.6-2.4); Potassium 5.2 mEq/L (3.5-5.1); Protein, Total 7.1 g/dL (6.4-8.2); Troponin High Sensitivity 22.4 pg/mL (<58.9)
[2023-07-15 11:56] LABS: Anisocytosis 1+; Blood Morphology Comment NOTED (NOT SEEN); Platelet Estimate ADEQ; Rouleau NOTED; White Blood Cell Scan OK (OK)
--- NOTE | 2023-07-15 12:07 | RAD REPORT ---
EXAM DESCRIPTION: CT - Head C Spine Cap Wo Con - 07/15/2023 11:31 am CLINICAL HISTORY: Head and neck injury with chest and abdominal pain status post fall TECHNIQUE: Computed axial tomography of head, neck, chest, abdomen and pelvis obtained. IV and oral contrast not requested. Coronal and sagittal reconstruction performed. All CT scans are performed using dose optimization technique as appropriate and may include automated exposure control or mA/KV adjustment according to patient size. COMPARISON: May 2023 FINDINGS: An intracranial bleed is not seen. The ventricles are normal in caliber. An extra-axial fluid collection is not noted. Fluid within the sinuses/mastoids is not seen. A cervical fracture is not seen. No dislocation is noted. The evaluation of mediastinum, rema, vessels, solid organs and bowel are limited secondary to the lac k of contrast administration. A mediastinal hematoma is not noted. Small left pleural effusion has decreased in size since May 2023. Mild left lower lobe atelectasis. Bilateral pulmonary nodules. Most without significant change The liver,spleen, pancreas, adrenals,kidneys and bladder do not demonstrate an acute traumatic injury Multiple rib fracture is again demonstrated. Subacute right humeral fracture Sclerosis throughout multiple bones Large right renal mass No gross acute traumatic injury involving the liver, spleen, pancreas kidneys and bladder. Acute renal mildly displaced subcapital fracture right femur. Subacute pelvic fractures IMPRESSION: No acute intracranial abnormality is seen. A cervical fracture is not visualized. 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
--- NOTE | 2023-07-15 12:09 | RAD REPORT ---
EXAM DESCRIPTION: RAD - Hip Right 2 View - 07/15/2023 11:36 am CLINICAL HISTORY: Right hip pain FINDINGS: Mildly displaced impaction fracture subcapital right femur. No dislocation
--- NOTE | 2023-07-15 12:09 | RAD REPORT ---
EXAM DESCRIPTION: RAD - Elbow Right 3 View - 07/15/2023 11:40 am CLINICAL HISTORY: Right elbow pain status post injury FINDINGS: A limited evaluation secondary to difficulty with patient positioning. No gross fracture or dislocation is seen.
--- NOTE | 2023-07-15 12:12 | RAD REPORT ---
EXAM DESCRIPTION: RAD - Shoulder Right 2 View - 07/15/2023 11:37 am CLINICAL HISTORY: Right shoulder pain FINDINGS: A subacute comminuted right humeral neck fracture with moderate to marked displacement of fracture fragments. Callus formation. No dislocation noted
--- NOTE | 2023-07-15 12:13 | RAD REPORT ---
[facility] CLINICAL HISTORY: Chest pain FINDINGS: A small left pleural effusion has decreased in size from May 2023. Bilateral pulmonary nodules. Mild left lower lobe atelectasis
--- NOTE | 2023-07-15 12:14 | RAD REPORT ---
EXAM DESCRIPTION: RAD - Knee Right 3 View - 07/15/2023 11:40 am CLINICAL HISTORY: Right knee pain status post injury FINDINGS: No fracture or dislocation is seen.
--- NOTE | 2023-07-15 12:26 | EDPHYS ---
Physician Documentation [facility] Name: Keiko Rashid Age: 82 yrs Sex: Female : 1940 Arrival Date: 07/15/2023 Time: 10:17 Bed 16 Private MD: ED Physician Javad Alexander HPI: 07/15 10:20 This 82 yrs old Female presents to ER via EMS with complaints of Fall Injury. [facility] 10:20 Details of fall: The patient fell from an upright position, while standing. Onset: The 7 symptoms/episode began/occurred acutely. Associated injuries: The patient sustained injury to the chest, pain with breathing, right shoulder, decreased range of motion, painful injury, right hip, decreased range of motion, obvious fracture. Patient was getting out of her recliner, lost her balance, and fell on her right side. The patient's reports that she normally ambulates with assistance, and likely grabbed onto something unstable causing her to fall. The patient denies LOC. Complains of severe pain to the right shoulder, right side, and right hip. EMS reports blood glucose of 60 on site and 72 after oral glucose. Past medical history includes CHF, hypertension, and diabetes.. Historical: - Allergies: 10:21 NKA; kc6 - PMHx: 10:21 Congestive heart failure; Diabetes - IDDM; Hypertension; kc6 - Immunization history:: Adult Immunizations unknown. - Social history:: Smoking status: unknown. ROS: 10:20 Constitutional: Negative for fever, chills, and weight loss, Eyes: Negative for injury, 7 pain, redness, and discharge, Neck: Negative for injury, pain, and swelling, Cardiovascular: Negative for chest pain, palpitations, and edema, Respiratory: Negative for shortness of breath, cough, wheezing, and pleuritic chest pain, Abdomen/GI: Negative for abdominal pain, nausea, vomiting, diarrhea, and constipation, Back: Negative for injury and pain, 10:20 Neuro: Negative for headache, weakness, numbness, tingling, and seizure, 10:20 MS/extremity: Positive for injury or acute deformity, decreased range of motion, pain, tenderness, of the right shoulder, right side, and right hip, 10:20 Skin: Positive for abrasion(s), of the right elbow, 10:20 All other systems are negative, Exam: 10:20 Head/Face: Normocephalic, atraumatic. Neck: Trachea midline, no thyromegaly or masses jh7 palpated, and no cervical lymphadenopathy. Supple, full range of motion without nuchal rigidity, or vertebral point tenderness. No Meningismus. Cardiovascular: Regular rate and rhythm with a normal S1 and S2. No gallops, murmurs, or rubs. Normal PMI, no JVD. No pulse deficits. Respiratory: Lungs have equal breath sounds bilaterally, clear to auscultation and percussion. No rales, rhonchi or wheezes noted. No increased work of breathing, no retractions or nasal flaring. Abdomen/GI: Soft, non-tender, with normal bowel sounds. No distension or tympany. No guarding or rebound. No evidence of tenderness throughout. 10:20 Neuro: Awake and alert, GCS 15, oriented to person, place, time, and situation. Sensory grossly intact. 10:20 Constitutional: The patient appears alert, awake, in obvious pain, 10:20 Musculoskeletal/extremity: Extremities: noted in the right shoulder: decreased ROM, deformity, pain, swelling, tenderness, noted in the right hip: decreased ROM, pain, tenderness, Circulation is intact in all extremities. Sensation intact. 10:20 Skin: injury, abrasion(s), small abrasion noted, of the right elbow, Vital Signs: 10:20 BP 127 / 46; Pulse 75; Resp 16 S; Pulse Ox 97% on R/A; Weight 48.53 kg (R); Height 5 kc6 ft. 5 in. (R); 11:00 BP 129 / 55; Pulse 59; Resp 18; Pulse Ox 100% ; cp4 11:30 BP 132 / 53; Pulse 54; Resp 18; Pulse Ox 100% ; cp4 12:00 BP 134 / 47; Pulse 57; Resp 18; Pulse Ox 100% ; cp4 13:05 BP 145 / 60; Pulse 57; Resp 18; Pulse Ox 100% ; cp4 10:20 Body Mass Index 17.81 (48.53 kg, 165.1 cm) [facility] MDM: 10:28 Patient medically screened. [facility] 12:44 Differential diagnosis: abrasion, closed head injury, contusion, fracture, multiple [facility] trauma, sprain. Data reviewed: vital signs, nurses notes, lab test result(s), EKG, radiologic studies, CT scan, plain films. Consideration of Admission/Observation Will transfer for higher level of care. Management of patient was discussed with the following: Senior Database Programmer: [facility]. No doc to doc required.. I considered the following discharge prescriptions or medication management in the emergency department Medications were administered in the Emergency Department. See MAR. Independent interpretation of the following test(s) in the Emergency Department EKG: See my EKG interpretation above. Historians other than the Patient: EMS: ems. Care significantly affected by the following chronic conditions: Diabetes, Hypertension, Congestive Heart Failure. Counseling: I had a detailed discussion with the patient and/or guardian regarding the historical points, exam findings, and any diagnostic results supporting the discharge/admit diagnosis, the need to transfer to another facility, for higher level of care. Response to treatment: the patient's symptoms have mildly improved after treatment. 07/15 10:41 Order name: CBC with Diff; Complete Time: 12:00 [facility] 07/15 10:41 Order name: Type And Screen; Complete Time: 13:02 [facility] 07/15 10:41 Order name: Urinalysis w/ reflexes; Complete Time: 13:02 [facility] 07/15 10:41 Order name: Basic Metabolic Panel; Complete Time: 12:00 [facility] 07/15 10:41 Order name: LFT's; Complete Time: 12:00 [facility] 07/15 10:41 Order name: Magnesium; Complete Time: 12:00 [facility] 07/15 10:41 Order name: NT PRO-BNP; Complete Time: 12:00 [facility] 07/15 10:41 Order name: PT-INR; Complete Time: 11:47 [facility] 07/15 10:41 Order name: Troponin HS; Complete Time: 12:00 [facility] 07/15 11:29 Order name: CBC Smear Scan; Complete Time: 12:00 [facility] 07/15 10:41 Order name: CT Traumagram (Head C Spine CAP wo con); Complete Time: 12:09 [facility] 07/15 10:41 Order name: XRAY Chest (1 view); Complete Time: 12:17 [facility] 07/15 10:41 Order name: XRAY Shoulder RIGHT 2 view; Complete Time: 12:17 [facility] 07/15 10:41 Order name: Elbow Right 3 View XRAY; Complete Time: 12:09 [facility] 07/15 10:41 Order name: Knee Right 3 View XRAY; Complete Time: 12:17 [facility] 07/15 11:02 Order name: XRAY Hip RIGHT 2 view; Complete Time: 12:12 [facility] 07/15 10:41 Order name: EKG; Complete Time: 10:41 [facility] 07/15 10:41 Order name: Cardiac monitoring; Complete Time: 11: [facility] 07/15 10:41 Order name: EKG - Nurse/Tech; Complete Time: 11:58 [facility] 07/15 10:41 Order name: IV Saline Lock; Complete Time: 11: [facility] 07/15 10:41 Order name: Labs collected and sent; Complete Time: 11: [facility] 07/15 10:41 Order name: O2 Per Protocol; Complete Time: 11: [facility] 07/15 10:41 Order name: O2 Sat Monitoring; Complete Time: 11: [facility] 07/15 12:44 Order name: Alfaro; Complete Time: 13:00 [facility] EC:50 Rate is 56 beats/min. Rhythm is irregular. Right axis deviation noted. QRS interval is [facility] normal at 84 msec. QT interval is normal at 458 msec. No Q waves. T waves are Normal. Clinical impression: Junctional rhythm with frequent PVCs. Administered Medications: 11:15 Drug: fentaNYL (PF) IVP 50 mcg IVP once Route: IVP; Site: left antecubital; cp4 12:44 Follow up: Response: No adverse reaction cp4 11:15 Drug: Ondansetron IVP 4 mg IVP once; over 2 minutes Route: IVP; Site: left antecubital; cp4 12:43 Follow up: Response: No adverse reaction cp4 12:04 Drug: morphine IVP or IV 4 mg IVP once over 4 mins Route: IVP; Infused Over: 4 mins; cp4 Site: left antecubital; 12:43 Follow up: Response: No adverse reaction cp4 13:05 Drug: morphine IVP or IV 2 mg IVP once over 4 mins Route: IVP; Infused Over: 4 mins; cp4 Site: left antecubital; 13:06 Follow up: Response: No adverse reaction cp4 Disposition Summary: 07/15/23 12:25 Transfer Ordered Notes: Transfer Location: [facility] jh7 Reason: Higher level of care jh7 Condition: Stable jh7 Problem: new jh7 Symptoms: are unchanged jh7 Accepting Physician: Accepting (07/15/23 13:06) cp4 Diagnosis - Right displaced subcapital femur fracture jh7 - Multiple right rib fractures jh7 - Right humerus fracture jh7 - Fall on same level, unspecified jh7 Forms: - Medication Reconciliation Form jh7 - SBAR form jh7 Signatures: Dispatcher [employer] EDJyoti Olivera FNP FNP jh7 Campbell, Kaitlyn RN RN kc6 Amber Astudillo cp4 Corrections: (The following items were deleted from the chart) 13:06 12:25 Accepting jhFifi cp4
--- NOTE | 2023-07-15 12:26 | ER ---
Nurse's Notes [facility] Name: Keiko Rashid Age: 82 yrs Sex: Female : 1940 Arrival Date: 07/15/2023 Time: 10:17 Bed 16 Private MD: Diagnosis: Right displaced subcapital femur fracture;Multiple right rib fractures;Right humerus fracture;Fall on same level, unspecified Presentation: 07/15 10:20 Chief complaint: EMS states: pt fell while getting out of her recliner. denies LOC. pt kc6 reports right elbow and knee pain. BGL en route 60. pt given oral glucose, BGL increased to 72. Coronavirus screen: At this time, the client does not indicate any symptoms associated with coronavirus-19. Ebola Screen: No symptoms or risks identified at this time. Initial Sepsis Screen: Does the patient meet any 2 criteria? No. Patient's initial sepsis screen is negative. Does the patient have a suspected source of infection? No. Patient's initial sepsis screen is negative. Risk Assessment: Do you want to hurt yourself or someone else? Patient reports no desire to harm self or others. Onset of symptoms was July 15, 2023. 10:20 Method Of Arrival: EMS: [facility] kc6 10:20 Acuity: GERRI 3 kc6 Historical: - Allergies: 10:21 NKA; kc6 - PMHx: 10:21 Congestive heart failure; Diabetes - IDDM; Hypertension; kc6 - Immunization history:: Adult Immunizations unknown. - Social history:: Smoking status: unknown. Screenin:43 [facility] ED Fall Risk Assessment (Adult) History of falling in the last 3 months, cp4 including since admission Yes- single mechanical fall (1 pt) Confusion or Disorientation No (0 pts) Intoxicated or Sedated No (0 pts) Impaired Gait Yes (1 pt) Mobility Assist Device Used Yes (1 pt) Altered Elimination No (0 pt) Score/Fall Risk Level 3 or more points = High Risk Oriented to surroundings, Maintained a safe environment, Educated pt \T\ family on fall prevention, incl call for assistance when getting out of bed, Assessed \T\ reinforced patient's understanding of fall precautions, Provided non-skid footwear, Hourly rounding (assess needs \T\ fall precautionary measures) done, Used ambulatory aids as needed (educated on \T\ assisted with). Abuse screen: Denies threats or abuse. Nutritional screening: No deficits noted. Tuberculosis screening: No symptoms or risk factors identified. Assessment: 10:43 General: Appears in no apparent distress. Behavior is calm, cooperative, appropriate cp4 for age. Pain: Complains of pain in right shoulder, right elbow, right knee Pain currently is 10 out of 10 on a pain scale. Musculoskeletal: Reports pain in right shoulder, right elbow, right knee. Vital Signs: 10:20 BP 127 / 46; Pulse 75; Resp 16 S; Pulse Ox 97% on R/A; Weight 48.53 kg (R); Height 5 kc6 ft. 5 in. (R); 11:00 BP 129 / 55; Pulse 59; Resp 18; Pulse Ox 100% ; cp4 11:30 BP 132 / 53; Pulse 54; Resp 18; Pulse Ox 100% ; cp4 12:00 BP 134 / 47; Pulse 57; Resp 18; Pulse Ox 100% ; cp4 13:05 BP 145 / 60; Pulse 57; Resp 18; Pulse Ox 100% ; cp4 10:20 Body Mass Index 17.81 (48.53 kg, 165.1 cm) kc6 ED Course: 10:20 Patient arrived in ED. kc6 10:21 Triage completed. kc6 10:21 Arm band placed on. kc6 10:28 Jyoti Serna FNP is PHCP. jh7 10:28 Javad Alexander MD is Attending Physician. 7 10:43 Amber Astudillo is Primary Nurse. cp4 10:43 Bed in low position. Call light in reach. Side rails up X2. cp4 11:24 XRAY Chest (1 view) In Process Unspecified. EDMS 11:24 XRAY Shoulder RIGHT 2 view In Process Unspecified. EDMS 11:24 Elbow Right 3 View XRAY In Process Unspecified. EDMS 11:25 Knee Right 3 View XRAY In Process Unspecified. EDMS 11:25 XRAY Hip RIGHT 2 view In Process Unspecified. EDMS 11:33 CT Traumagram (Head C Spine CAP wo con) In Process Unspecified. EDMS 12:14 initiated a transfer with Olya from the [facility]. eb 12:20 administrative approval given by Olya Boyle Rn/ patient has been accepted to [facility] ER/ Dr. Sanders has accepted the patient in transfer without conference/ report to be called to [phone]. 12:42 Alfaro cath inserted, using sterile technique, 16 Fr., by tx, balloon inflated, to cp4 gravity drainage, urine specimen collected. Administered Medications: 11:15 Drug: fentaNYL (PF) IVP 50 mcg IVP once Route: IVP; Site: left antecubital; cp4 12:44 Follow up: Response: No adverse reaction cp4 11:15 Drug: Ondansetron IVP 4 mg IVP once; over 2 minutes Route: IVP; Site: left antecubital; cp4 12:43 Follow up: Response: No adverse reaction cp4 12:04 Drug: morphine IVP or IV 4 mg IVP once over 4 mins Route: IVP; Infused Over: 4 mins; cp4 Site: left antecubital; 12:43 Follow up: Response: No adverse reaction cp4 13:05 Drug: morphine IVP or IV 2 mg IVP once over 4 mins Route: IVP; Infused Over: 4 mins; cp4 Site: left antecubital; 13:06 Follow up: Response: No adverse reaction cp4 Medication: 10:43 VIS not applicable for this client. cp4 Outcome: 12:25 ER care complete, transfer ordered by MD. hardign 13:06 Patient left the ED. cp4 Signatures: Dispatcher [employer] EDMS Colleen Nunez Jennifer, ROLL MECHANIC ROLL MECHANIC laure7 Peggy Fuller RN RN tia6 Amber Astudillo cp4
[2023-07-15 12:41] LABS: Specific Gravity 1.017 (1.005-1.030); Urine Bacteria <20 /HPF (<20); Urine Bilirubin NEGATIVE (Negative); Urine Blood Negative (Negative); Urine Clarity Extremely Turbid (Clear); Urine Color Light-Yellow (Yellow); Urine Glucose NEGATIVE (Negative); Urine Mucus Slight /HPF (None Seen); Urine Protein TRACE (Negative); Urine RBC <5 /HPF (None Seen); Urine Urobilinogen Normal (Normal)
[2023-07-15 13:45] VITALS: BP 145/60; O2SAT 100
--- NOTE | 2023-07-17 15:50 | EKG ---
Test Date: 2023-07-15 Test Time: 11:50:24 Reheater Helper: EMBER MEASUREMENT RESULTS: Intervals: Rate: 56 NH: QRSD: 84 QT: 458 QTc: 441 [place]: P: NH: QRS: 96 T: 55 INTERPRETIVE STATEMENTS: Junctional rhythm with frequent premature ventricular complexes Rightward axis Abnormal ECG Compared to ECG 05/04/2023 03:19:31 Junctional rhythm now present Ventricular premature complex(es) now present Right-axis deviation now present Sinus rhythm no longer present Atrial premature complex(es) no longer present First degree AV block no longer present T-wave abnormality no longer present Electronically Signed On 07-17-23 15:46:57 SIDE HEMMER by Fredi Gr
== END ==
LOC: ER 10:17
DX: S72.011A Unspecified intracapsular fracture of right femur, initial encounter for closed fracture (principal); S22.41XA Multiple fractures of ribs, right side, initial encounter for closed fracture; S42.301A Unspecified fracture of shaft of humerus, right arm, initial encounter for closed fracture; W18.30XA Fall on same level, unspecified, initial encounter; E11.9 Type 2 diabetes mellitus without complications; I10 Essential (primary) hypertension; I50.9 Heart failure, unspecified
CPT/HCPCS: 93005; 85025; 81001; 80048; 36415; 86900; 83735; 86850; 85610; 86901; 80076; 84484; 83880; 70450; 71250; 72125; 71045; 73502; 73080; 73030; 73562; 51702; 96375; 96374; 99284; J3010; J2270; J2405